=== PATIENT | female | born 1995 | race Caucasian/White ===

== ENCOUNTER 2020-03-05 16:37 | Outpatient (CLI) | payer BC, SELFPAY ==
--- NOTE | ~2020-03-05 | MR_ITS ---
EXAMINATION: MR lumbar spine wo con DATE: 03/05/2020 17:20 INDICATION: Lumbar radiculopathy. TECHNIQUE: Magnetic resonance imaging (MRI) of the lumbar spine was performed without intravenous con trast. Sequences included sagittal T2-weighted FSE, sagittal T2-weighted FS FSE, sagittal T1-weighted FSE, and axial T2-weighted FSE. COMPARISON: Lumbar spine MRI 05/26/2019 FINDINGS: There is 4 degrees dextrocurvature of thoracolumbar spine. Vertebral body heights are juan l. There is mildly decreased disc height at L5-S1. The distal spinal cord signal intensity is normal. The conus medullaris is at T12-L1. The following disc levels are specifically discussed: L1-L2: The disc does not extend beyond the endplate margin. There is no facet joint osteoarthritis. T here is no neural foraminal stenosis. There is no central canal stenosis. L2-L3: The disc does not extend beyond the endplate margin. There is no facet joint osteoarthritis. T here is no neural foraminal stenosis. There is no central canal stenosis. L3-L4: The disc does not extend beyond the endplate margin. There is moderate bilateral facet joint o steoarthritis. There is no neural foraminal stenosis. There is no central canal stenosis. L4-L5: The disc is mildly bulging. There is mild bilateral facet joint osteoarthritis. There is mild bilateral neural foraminal stenosis. There is no central canal stenosis. L5-S1: The disc is bulging and has an annular fissure. There is mild bilateral facet joint osteoarthr itis. There is no neural foraminal stenosis. There is mild central canal stenosis. IMPRESSION: 1. Mild lumbar spondylosis, stable from 05/26/2019. Reviewed, dictated and finalized at location E.
--- NOTE | ~2020-03-05 | XR_ITS ---
XR lumbar spine 2-3V 03/05/2020 17:30 Indication: Low back pain Procedure: 3 views lumbar spine Comparison: 04/30/2019 Findings: There is dextrocurvature of the lumbar spine centered at L3. Vertebral body and disc height s are preserved. No evidence for spondylolisthesis. Sacral foramen are symmetric. Impression: 1: Mild dextrocurvature of the lumbar spine. Reviewed, dictated and finalized at location A. Impression: 1: Mild dextrocurvature of the lumbar spine.
--- NOTE | ~2020-03-05 | XR_ITS ---
EXAMINATION: XR knee RT min 4V DATE: 03/05/2020 17:30 INDICATION: Right knee pain. TECHNIQUE: 4 views of right knee were obtained. COMPARISON: None. FINDINGS: Bone alignment is normal. No fracture. There is mild osteoarthritis of lateral and patellof emoral compartments characterized by tiny marginal osteophytes. No knee joint effusion. IMPRESSION: 1. Mild right knee osteoarthritis. Reviewed, dictated and finalized at location E.
== END 2020-03-05 16:38 | disposition home or self-care (01) ==
PROVIDERS: PCP Emergency Medicine; Visit Provider Nurse Practitioner Adult Health
DX: M54.16 Radiculopathy, lumbar region (principal); M25.561 Pain in right knee; M41.86 Other forms of scoliosis, lumbar region; M47.816 Spondylosis without myelopathy or radiculopathy, lumbar region; M17.11 Unilateral primary osteoarthritis, right knee
CPT/HCPCS: 72100; 72148; 73564

== ENCOUNTER 2020-03-21 09:36 | Outpatient (CLI) | payer BC, SELFPAY ==
--- NOTE | 2020-03-21 11:00 | NEURO_ITS ---
Patient Number: [id number] Impression: # Complains of right arm pain and paresthesia. # No Carpal Tunnel Syndrome or ulnar neuropathy. # Normal needle/EMG exam. # Clinical correlation recommended. Nerve Conduction Studies Anti Sensory Summary Table Stim Site NR Peak (ms) P-T Amp (?V) Site1 Site2 Delta-P (ms) Dist (cm) Robbie (m/s) Right Median Anti Sensory (2-3nd Digit) Wrist 2.3 84.8 Wrist 2-3nd Digit 2.3 14.0 61 Wrist 2.3 75.3 Wrist 2-3nd Digit 2.3 14.0 61 Right Radial Anti Sensory (Base 1st Digit) Wrist 1.8 39.5 Wrist Base 1st Digit 1.8 0.0 Right Ulnar Anti Sensory (5th Digit) Wrist 2.0 61.9 Wrist 5th Digit 2.0 14.0 70 Motor Summary Table Stim Site NR Onset (ms) O-P Amp (mV) Site1 Site2 Delta-0 (ms) Dist (cm) Robbie (m/s) Right Median Motor (Abd Poll Brev) Wrist 2.3 5.7 Elbow Wrist 4.6 27.0 59 Elbow 6.9 2.7 Right Ulnar Motor (Abd Dig Minimi) Wrist 2.0 6.6 A Elbow Wrist 4.4 29.0 66 A Elbow 6.4 5.6 F Wave Studies NR F-Lat (ms) L-R F-Lat (ms) Right Median (Mrkrs) (Abd Poll Brev) 25.65 Right Ulnar (Mrkrs) (Abd Dig Min) 24.91 EMG Side Muscle Nerve Root Ins Act Fibs Amp Dur Recrt Comment Right 1stDorInt Ulnar C8-T1 Nml Nml Nml Nml Nml Right Ext Indicis Radial (Post Int) C7-8 Nml Nml Nml Nml Nml Right Ext Digitorum Radial (Post Int) C7-8 Nml Nml Nml Nml Nml Right BrachioRad Radial C5-6 Nml Nml Nml Nml Nml Right PronatorTeres Median C6-7 Nml Nml Nml Nml Nml Right Abd Poll Brev Median C8-T1 Nml Nml Nml Nml Nml MTDD
== END 2020-03-21 09:37 | disposition home or self-care (01) ==
PROVIDERS: PCP Emergency Medicine; Visit Provider Emergency Medicine
DX: R20.2 Paresthesia of skin (principal)
CPT/HCPCS: 95886; 95909

== ENCOUNTER → 2020-05-01 14:47 | Outpatient (CLI) | payer BC, SELFPAY ==
--- NOTE | ~2020-05-01 | US_ITS ---
EXAMINATION: US pelvic complete w TV DATE: 05/01/2020 15:12 INDICATION: Acquired atrophy of the right ovary TECHNIQUE: Multiple transabdominal and endovaginal sonographic images of the pelvis were obtained. COMPARISON: None. FINDINGS: The uterus is surgically absent. The right ovary is not visualized however no right adnexal abnormality is seen. The left ovary measures 5.4 x 5 x 4.9 cm. There is a 4.5 x 4.5 x 4.1 cm left ad nexal cyst with a reticular pattern of internal echoes, likely hemorrhagic cyst. There is normal vasc ular flow in the left ovary. There is a small amount of likely physiologic free fluid in the pelvis. IMPRESSION: 1. Right ovary not identified. Reviewed, dictated and finalized at location A.
== END ==
PROVIDERS: PCP Emergency Medicine; Visit Provider Emergency Medicine
DX: N83.311 Acquired atrophy of right ovary (principal)
CPT/HCPCS: 76830; 76856

== ENCOUNTER → 2020-08-02 14:07 | Outpatient (CLI) | payer BC, SELFPAY ==
--- NOTE | ~2020-08-02 | US_ITS ---
EXAMINATION: US renal BI EXAM DATE: 08/02/2020 14:30 INDICATION: cyst of kidney TECHNIQUE: Multiple grayscale and Doppler images of the kidneys were obtained (by a technologist who performed the scan) and subsequently reviewed. There is no prior study for comparison. FINDINGS: Right kidney: There is normal contour and echogenicity. It measures 11.3 x 3.5 x 5.3 centimeters. T here are no focal renal lesions identified. There is no hydronephrosis. Left kidney: There is normal contour and echogenicity. It measures 10.9 x 4.1 x 6.0 centimeters. Th ere are no focal renal lesions identified. There is no hydronephrosis. Bladder unremarkable. IMPRESSION: 1. Sonographically unremarkable kidneys. Reviewed, dictated and finalized at location B. [employer] PROCESSING
== END ==
PROVIDERS: PCP Emergency Medicine; Visit Provider Emergency Medicine
DX: N28.1 Cyst of kidney, acquired (principal)
CPT/HCPCS: 76775

== ENCOUNTER → 2020-09-13 09:58 | Outpatient (CLI) | payer BC, SELFPAY ==
--- NOTE | ~2020-09-13 | MR_ITS ---
EXAMINATION: MR brain/brain stem wo/w con DATE: 09/13/2020 10:47 INDICATION: Headache. Neuropathy. Muscle weakness. TECHNIQUE: Magnetic resonance imaging (MRI) of the brain and brainstem was performed without and with 14 mL MultiHance intravenous contrast. Sequences included sagittal and axial T1-weighted FLAIR, axia l T1-weighted FSE, axial diffusion-weighted FS EPI, sagittal T2-weighted FLAIR, axial T2*-weighted GR E, axial T2-weighted FLAIR Propeller, and axial T2-weighted Propeller. Postcontrast sequences include d axial, coronal, and sagittal T1-weighted FSE. Apparent diffusion coefficient (ADC) maps were create d. COMPARISON: None. FINDINGS: There is no intracranial hemorrhage, acute infarction, or abnormal intracranial mass lesion . The ventricles are normal in size. The paranasal sinuses are clear. The orbits are normal. The mast oid air cells are normal. IMPRESSION: 1. Normal brain. Reviewed, dictated and finalized at location A. 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 Normal brain.
[2020-09-13 10:22] LABS: Estimated Glomerular Filt Rate > 60
== END ==
PROVIDERS: PCP Emergency Medicine; Visit Provider Emergency Medicine
DX: R51.9 Headache, unspecified (principal); G62.9 Polyneuropathy, unspecified
CPT/HCPCS: 70553; A9577

== ENCOUNTER → 2020-11-16 11:52 | Outpatient (CLI) | payer BC, SELFPAY ==
--- NOTE | ~2020-11-16 | US_ITS ---
EXAMINATION: US soft tissue UE RT EXAM DATE: 11/16/2020 12:11 INDICATION: Ganglion, right wrist. Right wrist palpable abnormality. TECHNIQUE: Multiple grayscale and Doppler images of the palpable right wrist region were obtained (by a technologist who performed the scan) and subsequently reviewed. There is no prior study for lisa marcano. FINDINGS: No ganglion, cystic lesion or other mass was identified when scanning right anterior mid wrist palpab le region. IMPRESSION: 1. Could not identify etiology for right wrist palpable abnormality. Reviewed, dictated and finalized at location A. 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
== END ==
PROVIDERS: PCP Emergency Medicine; Visit Provider Emergency Medicine
DX: M67.431 Ganglion, right wrist (principal)
CPT/HCPCS: 76882

== ENCOUNTER 2021-01-17 00:10 | Emergency (ER) | payer BC, SELFPAY ==
--- NOTE | ~2021-01-17 | XR_ITS ---
EXAMINATION: XR hip RT 2V w AP pelvis DATE: 01/17/2021 00:43 INDICATION: Right hip pain. TECHNIQUE: An anteroposterior view of the pelvis and 2 views of right hip were obtained. COMPARISON: None. FINDINGS: There is 6 degrees dextrocurvature of lumbar spine. No fracture. The hip joint spaces are n ormal. IMPRESSION: 1. Normal hips. Reviewed, dictated and finalized at location B. IMPRESSION: 1. Normal hips.
[2021-01-17 00:10] VITALS: BP 125/88; PULSE 88; RESP 18; TEMP 36.7; O2SAT 100
--- NOTE | 2021-01-17 00:30 | ED.LOWEXIN ---
HPI - Extremity Injury (Lower) General Chief Complaint: Extremity Injury, Lower Stated Complaint: hip injury Time Seen by Provider: 01/17/21 00:23 Source: patient Mode of arrival: ambulatory Limitations: no limitations History of Present Illness HPI Narrative: This is a 25 year old female who presents for evaluation of right hip pain. She states she was having sexual intercourse with her last night and she felt a pop in her right hip. She has continued to have soreness to her right lateral hip. She reports intermittent tingling to her right hip. She states tonight she felt pain to right hip that radiated to right knee. She taken tylenol for her pain. She denies numbness or weakness to her leg. complaint: hip injury Related Data Home Medications Medication Instructions Recorded Confirmed amitriptyline 25 mg PO QAM AND QHS 08/24/19 09/02/19 gabapentin 300 mg PO QAM AND QHS 08/24/19 09/02/19 ibuprofen 800 mg PO TID PRN 08/24/19 09/02/19 montelukast 10 mg PO HS 08/24/19 09/02/19 Allergies Allergy/AdvReac Type Severity Reaction Status Date / Time adhesive tape Allergy Severe BLISTERS Verified 08/23/19 21:37 ammonia Allergy Severe Dyspnea / Verified 08/23/19 23:00 SOB latex Allergy Severe RASH Verified 08/23/19 21:37 mold Allergy Severe Dyspnea / Verified 08/23/19 23:04 SOB metronidazole Allergy Intermediate RASH Verified 08/23/19 21:37 coconut Allergy Unknown Unknown Verified 08/23/19 23:04 mushroom Allergy Unknown Unknown Verified 08/23/19 23:04 Sulfa (Sulfonamide Allergy Unknown Unknown Verified 08/23/19 21:37 Antibiotics) Review of Systems Review of Systems: All systems reviewed & are unremarkable except as noted in HPI and below PMFSH Past Medical History Medical History (Updated 01/17/21 @ 01:44 by Amalia Pineda MD) Asthma Fibromyalgia PID (pelvic inflammatory disease) Thrombus Surgical History Surgical History (Updated 09/02/19 @ 21:02 by Meghana Brasher NP) History of dilation and curettage History of endometrial ablation History of hysterectomy Hx of section X2 Family History Family History Father Acute myocardial infarction Mother Heart disease Social History Social History (Updated 09/02/19 @ 21:05 by Meghana Brasher NP) Social History: She is a [id number] mother of 3 children. 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tion (if Verbalized by the Patient): Straight or Heterosexual Spiritual care concerns: No Agree to blood products: Yes Exam Const: General: no acute distress and alert Orientation/consciousness: patient oriented x3 Resp: Effort & Inspection: normal respiratory effort and no retractions Auscultation: clear to auscultation bilaterally Cardio: Rate: regular rate Rhythm: regular rhythm Heart sounds: no murmurs GI: GI Palp: Yes Soft to palpation, No Tenderness to palpation present (GI) and No Guarding due to palpation present (GI) Neuro: General: patient oriented x3 and moves all extremities Extrem: Other: FROM right hip, no erythema, no swelling, Psych: Mental Status: mental status grossly normal Affect: normal affect Course Reevaluation(s) Reevaluation #1: PAtient is able to ambulate and bear weight. I reviewed xray showing no acute findings. I discussed discharge plan and treatment. Date: 01/17/21 Time: 01:41 Vital Signs Vital signs: Vital Signs Temperature 98.0 F 01/17/21 00:10 Pulse Rate 88 01/17/21 00:10 Respiratory Rate 18 01/17/21 00:10 Blood Pressure 125/88 01/17/21 00:10 Pulse Oximetry 100 01/17/21 00:10 Temperature 98.0 F 01/17/21 00:10 Pulse Rate 87 01/17/21 01:55 Respiratory Rate 18 01/17/21 01:
[2021-01-17] MEDS: KETOROLAC (*BKC) 60 MG/2 ML VIAL IM (00:44)
[2021-01-17 01:55] VITALS: BP 113/79; PULSE 87; RESP 18; O2SAT 97
== END 2021-01-17 01:56 | disposition home or self-care (01) ==
PROVIDERS: Emergency Provider General Practice; PCP Emergency Medicine
DX: M25.551 Pain in right hip (principal); J45.909 Unspecified asthma, uncomplicated; M79.7 Fibromyalgia
CPT/HCPCS: 73502; 96372; 99283; J1885

== ENCOUNTER 2021-02-13 21:08 | Emergency (ER) | payer BC, SELFPAY ==
[2021-02-13 21:24] VITALS: BP 112/95; PULSE 101; RESP 18; TEMP 36.6; O2SAT 95
--- NOTE | 2021-02-13 22:50 | ED.GENADULT ---
HPI - General Adult General Chief complaint: Unspecified Stated complaint: allergic rxn, vag c/o Time Seen by Provider: 02/13/21 22:12 Source: patient Mode of arrival: ambulatory Limitations: no limitations History of Present Illness HPI narrative: Patient is a 25 year old female who presents with vaginal irritation after use of Monistat this pm. Patient reports recent yeast infection and Diflucan x 2, reports that she was using Monistat just to be sure . She denies exposure to STD, denies urinary complaints. MD complaint: vaginal irritation Related Data Home Medications Medication Instructions Recorded Confirmed amitriptyline 25 mg PO QAM AND QHS 08/24/19 09/02/19 gabapentin 300 mg PO QAM AND QHS 08/24/19 09/02/19 ibuprofen 800 mg PO TID PRN 08/24/19 09/02/19 montelukast 10 mg PO HS 08/24/19 09/02/19 Allergies Allergy/AdvReac Type Severity Reaction Status Date / Time adhesive tape Allergy Severe BLISTERS Verified 08/23/19 21:37 ammonia Allergy Severe Dyspnea / Verified 08/23/19 23:00 SOB latex Allergy Severe RASH Verified 08/23/19 21:37 mold Allergy Severe Dyspnea / Verified 08/23/19 23:04 SOB metronidazole Allergy Intermediate RASH Verified 08/23/19 21:37 coconut Allergy Unknown Unknown Verified 08/23/19 23:04 mushroom Allergy Unknown Unknown Verified 08/23/19 23:04 Sulfa (Sulfonamide Allergy Unknown Unknown Verified 08/23/19 21:37 Antibiotics) Review of Systems Review of Systems: Narrative: CONSTITUTIONAL: Denies fever, chills, or sweats. EYES: Denies visual changes, redness, or discharge. ENT: Denies rhinorrhea, congestion, sore throat, or otalgia. CARDIOVASCULAR: Denies chest pain, palpitations, or edema. RESPIRATORY: Denies cough or dyspnea. GASTROINTESTINAL: Denies abdominal pain, nausea, vomiting, or diarrhea. GENITOURINARY:Vaginal irritation SKIN: Denies rash or itching. MUSCULOSKELETAL: Denies back pain, joint pain, or myalgia. NEUROLOGIC: Denies headache, numbness, dizziness, or weakness. PSYCHIATRIC: Denies anxiety or depression. [facility] Past Medical History Medical History Asthma Fibromyalgia PID (pelvic inflammatory disease) Thrombus Surgical History Surgical History History of dilation and curettage History of endometrial ablation History of hysterectomy Hx of section X2 Family History Family History Father Acute myocardial infarction Mother Heart disease Social History Social History Social History: She is a [id number] mother of 3 children. 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 Please see nursing chart for further information. There is no relevant family history pertinent to the presenting complaint. Exam Narrative: Exam Narrative: GENERAL: Well-appearing, well-nourished, and in no acute distress. HEAD: Normocephalic, atraumatic. EYES: EOMI. No redness or drainage. Conjunctiva are normal. ENT: Mucous membranes pink and moist. CHEST: No respiratory distress. Clear to auscultation. : Erythema and mild edema to labial area HEART: Regular rate and rhythm. EXTREMITIES: Normal range of motion. No edema. SKIN: Warm, dry, no rash. NEURO: No focal deficits. Alert and oriented x3. Gait steady. PSYCH: Normal affect. No signs of depression or anxiety. Course Vital Signs Vital signs: Vital Signs Temperature 36.6 C 02/13/21 21:24 Pu
[2021-02-13 23:14] VITALS: BP 131/87; PULSE 92; RESP 16; TEMP 36.4; O2SAT 100
== END 2021-02-13 23:15 | disposition home or self-care (01) ==
PROVIDERS: Emergency Provider Nurse Practitioner; PCP Emergency Medicine
DX: L25.9 Unspecified contact dermatitis, unspecified cause (principal); J45.909 Unspecified asthma, uncomplicated; M79.7 Fibromyalgia
CPT/HCPCS: 99283

== ENCOUNTER 2021-02-19 08:32 | Outpatient (CLI) | payer BC, SELFPAY ==
--- NOTE | ~2021-02-19 | CT_ITS ---
EXAMINATION: CT soft tissue neck w con DATE: 02/19/2021 09:09 INDICATION: Cervical lymphadenopathy. TECHNIQUE: Computed tomography (CT) of the neck was performed with 75 mL Omnipaque-350 intravenous co ntrast. Automated exposure control and iterative reconstruction technique were employed. The dose-jann gth product was 458.01 mGy-cm. COMPARISON: None FINDINGS: There are no pathologically enlarged lymph nodes. There is no abnormal mass. The cervical c arotid arteries are normal. The bones are unremarkable. IMPRESSION: 1. No lymphadenopathy. Reviewed, dictated and finalized at location B. IMPRESSION: 1. No lymphadenopathy.
== END 2021-02-19 08:33 | disposition home or self-care (01) ==
PROVIDERS: PCP Emergency Medicine; Visit Provider Otolaryngology
DX: R59.0 Localized enlarged lymph nodes (principal)
CPT/HCPCS: 70491; Q9967

== ENCOUNTER 2021-04-28 19:04 | Emergency (ER) | payer BC, SELFPAY ==
[2021-04-28 19:11] VITALS: BP 126/75; PULSE 99; RESP 18; TEMP 36.8; O2SAT 99
--- NOTE | 2021-04-28 19:12 | ED.BACK ---
HPI - Back Pain/Injury General Chief Complaint: Back Pain/Injury Stated Complaint: Lower back pain Time Seen by Provider: 04/28/21 19:12 Source: patient and RN notes reviewed Mode of arrival: ambulatory Limitations: no limitations History of Present Illness HPI Narrative: 26-year-old female presents concern for left low back pain that started this morning. Reports it started after she bent over to put in the oven. She denies any direct injury or trauma. Reports pain is elicited with bending, twisting. She denies fever, abdominal pain, nausea, vomiting, hematuria, dysuria, urine frequency, urgency. She reports she had plantar fasciitis surgery approximately 1 week ago and has been wearing a boot which causes an abnormal gait. She denies intervention. MD elicited complaint: back pain Related Data Home Medications Medication Instructions Recorded Confirmed montelukast 10 mg PO HS 08/24/19 09/02/19 bupropion HCl mg PO 04/28/21 diltiazem HCl PO 04/28/21 omeprazole 04/28/21 Allergies Allergy/AdvReac Type Severity Reaction Status Date / Time adhesive tape Allergy Severe BLISTERS Verified 08/23/19 21:37 ammonia Allergy Severe Dyspnea / Verified 08/23/19 23:00 SOB latex Allergy Severe RASH Verified 08/23/19 21:37 mold Allergy Severe Dyspnea / Verified 08/23/19 23:04 SOB metronidazole Allergy Intermediate RASH Verified 08/23/19 21:37 coconut Allergy Unknown Unknown Verified 08/23/19 23:04 mushroom Allergy Unknown Unknown Verified 08/23/19 23:04 Sulfa (Sulfonamide Allergy Unknown Unknown Verified 08/23/19 21:37 Antibiotics) Review of Systems Review of Systems: CONSTITUTIONAL: Denies malaise, chills, sweats, or fever. CARDIOVASCULAR: Denies chest pain, palpitations, or edema. RESPIRATORY: Denies cough or dyspnea. GASTROINTESTINAL: Denies abdominal pain, nausea, vomiting, diarrhea GENITOURINARY: Denies dysuria frequency, urgency, or hematuria. SKIN: Denies bruising, redness MUSCULOSKELETAL: Reports left low pain. Denies myalgia. NEUROLOGIC: Denies numbness, weakness, or headache. All systems reviewed & are unremarkable except as noted in HPI and below PMFSH Past Medical History Medical History Asthma Fibromyalgia PID (pelvic inflammatory disease) Thrombus Surgical History Surgical History History of dilation and curettage History of endometrial ablation History of hysterectomy Hx of section X2 Family History Family History Father Acute myocardial infarction Mother Heart disease Social History Social History Social History: She is a [id number] mother of 3 children. 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 There is no relevant family history pertinent to the presenting complaint Exam Narrative: GENERAL: Well-appearing, well-nourished, and in no acute distress. HEAD: Normocephalic, atraumatic. EYES: PERRLA and EOMI. NECK: Supple. No lymphadenopathy. CHEST: Clear to auscultation. No respiratory distress. HEART: Regular rate and rhythm. Distal pulses palpable and equal, cap refill <3 seconds ABDOMEN: Soft, nontender, nondistended, normal active bowel sounds, no palpable or pulsatile masses. No CVA tenderness MUSCULOSKELETAL: Normal range of motion and strength in all extremities; 5/5 strength with hip flexion and extension, dorsiflexion and extension, knee flexion and extension, plantar flexion and extension. Norm
== END 2021-04-28 19:57 | disposition home or self-care (01) ==
PROVIDERS: Emergency Provider Nurse Practitioner; PCP Emergency Medicine
DX: M54.5 Low back pain (principal); J45.909 Unspecified asthma, uncomplicated; M79.7 Fibromyalgia; N73.9 Female pelvic inflammatory disease, unspecified
CPT/HCPCS: 99212; G0463

== ENCOUNTER 2021-06-20 18:06 | Emergency (ER) | payer BC, SELFPAY ==
[2021-06-20 18:14] VITALS: BP 111/75; PULSE 93; RESP 18; TEMP 36.6; O2SAT 100
--- NOTE | 2021-06-20 18:54 | ED.GENADULT ---
HPI - General Adult General Chief complaint: Upper Respiratory Infection Stated complaint: sore throat/sob Source: patient Mode of arrival: ambulatory Limitations: no limitations History of Present Illness HPI narrative: 26 y/o female. PMHx MDD, Asthma, GERD, SSS. Presents to ED today with acute complaints of sore throat and intermittent asthma issues . Client tells me that for the past 48 hours she has been having worsening sore throat. She adds to have been around her Brother whom just tested positive for Streptococcal Throat. In addition, she had went to the local hair salon and had her hair dyed this AM. Client tells me after being exposed to the chemicals at the salon, she felt like she was having a small amount of wheezing that has since cleared. No fever, chills. No dyspnea, dysphagia, involuntary drooling. She is without additional acute c/o illness upon exam. Related Data Home Medications Medication Instructions Recorded Confirmed montelukast 10 mg PO HS 08/24/19 06/20/21 bupropion HCl 150 mg PO DAILY 04/28/21 06/20/21 diltiazem HCl 120 mg PO DAILY 04/28/21 06/20/21 omeprazole 40 mg PO DAILY 04/28/21 06/20/21 meloxicam 7.5 mg PO DAILY 06/20/21 06/20/21 tretinoin 1 applic TOPICAL DAILY 06/20/21 06/20/21 Allergies Allergy/AdvReac Type Severity Reaction Status Date / Time adhesive tape Allergy Severe BLISTERS Verified 06/20/21 18:29 ammonia Allergy Severe Dyspnea / Verified 06/20/21 18:29 SOB latex Allergy Severe RASH Verified 06/20/21 18:29 mold Allergy Severe Dyspnea / Verified 06/20/21 18:29 SOB metronidazole Allergy Intermediate RASH Verified 06/20/21 18:29 coconut Allergy Unknown Unknown Verified 06/20/21 18:29 mushroom Allergy Unknown Unknown Verified 06/20/21 18:29 Sulfa (Sulfonamide Allergy Unknown Unknown Verified 06/20/21 18:29 Antibiotics) Review of Systems Review of Systems: CONSTITUTIONAL: Denies fever, chills, sweats. EYES: Denies visual changes, redness, discharge. ENT: sore throat. CARDIOVASCULAR: Denies chest pain, palpitations, edema. RESPIRATORY: Wheezing. Denies dyspnea, cough. GASTROINTESTINAL: Denies abdominal pain, nausea, vomiting, diarrhea. GENITOURINARY: Denies dysuria, hematuria, abnormal discharge SKIN: Denies rash or itching. MUSCULOSKELETAL: Denies acute back pain, joint pain, or myalgia. NEUROLOGIC: Denies numbness, or focal weakness. PSYCHIATRIC: Denies anxiety or depression. All systems reviewed & are unremarkable except as noted in HPI and below PMFSH Past Medical History Medical History Asthma Fibromyalgia PID (pelvic inflammatory disease) Thrombus Surgical History Surgical History History of dilation and curettage History of endometrial ablation History of hysterectomy Hx of section X2 Family History Family History Father Acute myocardial infarction Mother Heart disease Social History Social History Social History: She is a [id number] mother of 3 children. 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 HEAD: normocephalic, atraumatic. EYES: PERRL. Sclera clear/white. EARS: External ears normal, auditory canals clear and without drainage, TMs normal. NOSE: External nose normal. No Rhinorrhea, no obstruction, nares patent. THROAT: Mucous membranes moist, posterior pharynx e
== END 2021-06-20 19:03 | disposition home or self-care (01) ==
PROVIDERS: Emergency Provider Nurse Practitioner Adult Health; PCP Emergency Medicine
DX: J45.21 Mild intermittent asthma with (acute) exacerbation (principal); J02.9 Acute pharyngitis, unspecified; M79.7 Fibromyalgia
CPT/HCPCS: 87081; 87880; 99213; G0463

== ENCOUNTER 2021-06-22 09:24 | Emergency (ER) | payer BC, SELFPAY ==
[2021-06-22 09:27] VITALS: BP 119/71; PULSE 97; RESP 16; TEMP 36.3; O2SAT 98
--- NOTE | 2021-06-22 10:40 | ED.GENADULT ---
HPI - General Adult General Chief complaint: Wound/Laceration Stated complaint: wound Time Seen by Provider: 06/22/21 10:12 History of Present Illness HPI narrative: Patient presents for evaluation of painful lesion to the labia. She indicates she gets ingrown hairs frequently after shaving. Approximately 3 weeks ago she was grooming her pubic hair. She developed some swelling in affected area shortly thereafter. She attributed this to an ingrown hair. Yesterday she noticed increased swelling and then she has a cyst in the affected area. No fever, chills, nausea, vomiting. No vaginal bleeding or discharge. No additional complaints or concerns. She states she is currently on amoxicillin that was started a few days ago when she was evaluated at urgent care for sore throat. She states her sore throat is improving. Related Data Home Medications Medication Instructions Recorded Confirmed montelukast 10 mg PO HS 08/24/19 06/20/21 bupropion HCl 150 mg PO DAILY 04/28/21 06/20/21 diltiazem HCl 120 mg PO DAILY 04/28/21 06/20/21 omeprazole 40 mg PO DAILY 04/28/21 06/20/21 meloxicam 7.5 mg PO DAILY 06/20/21 06/20/21 tretinoin 1 applic TOPICAL DAILY 06/20/21 06/20/21 Allergies Allergy/AdvReac Type Severity Reaction Status Date / Time adhesive tape Allergy Severe BLISTERS Verified 06/22/21 09:36 ammonia Allergy Severe Dyspnea / Verified 06/22/21 09:36 SOB latex Allergy Severe RASH Verified 06/22/21 09:36 mold Allergy Severe Dyspnea / Verified 06/22/21 09:36 SOB metronidazole Allergy Intermediate RASH Verified 06/22/21 09:36 coconut Allergy Unknown Unknown Verified 06/22/21 09:36 mushroom Allergy Unknown Unknown Verified 06/22/21 09:36 Sulfa (Sulfonamide Allergy Unknown Unknown Verified 06/22/21 09:36 Antibiotics) Review of Systems Review of Systems: CONSTITUTIONAL: Denies fever, chills, or sweats. EYES: Denies visual changes, redness, or discharge. ENT: Denies rhinorrhea, congestion, sore throat, or otalgia. CARDIOVASCULAR: Denies chest pain, palpitations, or edema. RESPIRATORY: Denies cough or dyspnea. GASTROINTESTINAL: Denies abdominal pain, nausea, vomiting, or diarrhea. GENITOURINARY: Denies dysuria or hematuria. SKIN: Reports painful swollen lesion to labia. Denies rash or itching. MUSCULOSKELETAL: Denies back pain, joint pain, or myalgia. NEUROLOGIC: Denies headache, numbness, dizziness, or weakness. PSYCHIATRIC: Denies anxiety or depression. [facility] Past Medical History Medical History Asthma Fibromyalgia PID (pelvic inflammatory disease) Tachycardia Thrombus Surgical History Surgical History History of dilation and curettage History of endometrial ablation History of hysterectomy Hx of section X2 Family History Family History Father Acute myocardial infarction Mother Heart disease Social History Social History Social History: She is a [id number] mother of 3 children. 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 HEAD: Normocephalic, atraumatic. EYES: PERRLA and EOMI. ENT: Nares clear, no rhinorrhea or epistaxis. Mucous membranes moist. Oropharynx without tonsillar hypertrophy exudate or other lesions. Bilateral TMs pearly persaud nonbulging NECK: Supple. No adenopathy or masses. No carotid bruits or JVD CHEST: Clear to auscultation.
[2021-06-22 11:50] VITALS: BP 125/86; PULSE 78; RESP 18; O2SAT 99
== END 2021-06-22 11:51 | disposition home or self-care (01) ==
PROVIDERS: Emergency Provider Nurse Practitioner; PCP Emergency Medicine
DX: J45.909 Unspecified asthma, uncomplicated (principal); M79.7 Fibromyalgia; L73.9 Follicular disorder, unspecified; J02.9 Acute pharyngitis, unspecified
CPT/HCPCS: 99283

== ENCOUNTER → 2021-11-05 10:49 | Outpatient (CLI) | payer BC, SELFPAY ==
--- NOTE | ~2021-11-05 | US_ITS ---
EXAMINATION: US pelvic complete w TV EXAM DATE: 11/05/2021 11:18 INDICATION: Pelvic pain . TECHNIQUE: Pelvic transvaginal sonogram was performed. There are multiple grayscale and Doppler imag es available for interpretation. There is no prior study for comparison. FINDINGS: Hysterectomy. The vaginal cuff, cervix sonographically unremarkable. Right adnexa: No adnexal mass. Left adnexa: The ovary measures 2.9 x 1.8 x 2.6 cm and is morphologically normal. Ovarian vascular fl ow confirmed. IMPRESSION: Unremarkable left ovary. Reviewed, dictated and finalized at location B. T SUPERVISOR IMPRESSION: Unremarkable left ovary.
== END ==
PROVIDERS: PCP Emergency Medicine; Visit Provider Emergency Medicine
DX: R10.2 Pelvic and perineal pain (principal)
CPT/HCPCS: 76830; 76856

== ENCOUNTER → 2021-12-12 09:51 | Outpatient (CLI) | payer BC, SELFPAY ==
--- NOTE | ~2021-12-12 | MR_ITS ---
EXAMINATION: MR lumbar spine wo con DATE: 12/12/2021 10:31 INDICATION: Lumbar radiculopathy. TECHNIQUE: Magnetic resonance imaging (MRI) of the lumbar spine was performed without intravenous con trast. Sequences included sagittal T2-weighted FSE, sagittal T2-weighted FS FSE, sagittal T1-weighted FSE, and axial T2-weighted FSE. COMPARISON: Lumbar spine MRI 03/05/2020 FINDINGS: Bone alignment is normal. Vertebral body heights are normal. There is mildly decreased disc height at L5-S1. The distal spinal cord signal intensity is normal. The conus medullaris is at T12-L 1. The following disc levels are specifically discussed: L1-L2: The disc does not extend beyond the endplate margin. There is no facet joint osteoarthritis. T here is no neural foraminal stenosis. There is no central canal stenosis. L2-L3: The disc does not extend beyond the endplate margin. There is mild bilateral facet joint osteo arthritis. There is no neural foraminal stenosis. There is no central canal stenosis. L3-L4: The disc does not extend beyond the endplate margin. There is mild bilateral facet joint osteo arthritis. There is no neural foraminal stenosis. There is no central canal stenosis. L4-L5: The disc is bulging. There is mild bilateral facet joint osteoarthritis. There is mild left ne ural foraminal stenosis. There is mild central canal stenosis. L5-S1: The disc is bulging and has an annular fissure. There is mild right facet joint osteoarthritis . There is no neural foraminal stenosis. There is mild central canal stenosis. IMPRESSION: 1. Mild lumbar spondylosis, stable from 03/05/2020. Reviewed, dictated and finalized at location A.
== END ==
PROVIDERS: PCP Emergency Medicine; Visit Provider Nurse Practitioner Adult Health
DX: M47.27 Other spondylosis with radiculopathy, lumbosacral region (principal); M48.07 Spinal stenosis, lumbosacral region
CPT/HCPCS: 72148

== ENCOUNTER 2021-12-19 11:20 | Emergency (ER) | payer BC, SELFPAY ==
[2021-12-19 11:31] VITALS: BP 113/74; PULSE 84; RESP 18; TEMP 36.4; O2SAT 99
--- NOTE | 2021-12-19 11:56 | ED.FEMALEGU ---
HPI - Female Genitourinary General Chief complaint: Urogenital-Female Stated complaint: nausea and uti symptoms Time Seen by Provider: 12/19/21 11:56 Source: patient Mode of arrival: ambulatory Limitations: no limitations History of Present Illness HPI Narrative: Soledad Massey is a 26 yo female with a PMH of depression anxiety, tachycardia, asthma, who [facility] with complaints of dysuria and burning and some itching in her vaginal area without discharge. She has no concern for STDs or other sources of infection Related Data Home Medications Medication Instructions Recorded Confirmed bupropion HCl 150 mg PO DAILY 12/19/21 12/19/21 diltiazem HCl 120 mg PO DAILY 12/19/21 12/19/21 montelukast [Singulair] 10 mg PO HS 12/19/21 12/19/21 Allergies Allergy/AdvReac Type Severity Reaction Status Date / Time adhesive tape Allergy Severe BLISTERS Verified 11/25/21 08:22 ammonia Allergy Severe Anaphylaxis Verified 11/25/21 08:22 latex Allergy Severe RASH, Verified 12/19/21 11:48 swelling mold Allergy Severe Dyspnea / Verified 11/25/21 08:22 SOB tioconazole Allergy Severe vaginal Verified 12/19/21 11:48 [From Monistat 1 swelling (tioconazole)] metronidazole Allergy Intermediate RASH, hives Verified 12/19/21 11:48 coconut Allergy Unknown Hives, Verified 12/19/21 11:48 abdominal cramps kiwi Allergy Unknown itching Verified 11/25/21 08:22 mushroom Allergy Unknown Swelling Verified 12/19/21 11:48 Sulfa (Sulfonamide Allergy Unknown Unknown Verified 12/19/21 11:48 Antibiotics) tumeric Allergy Severe Swelling, Uncoded 08/14/21 14:01 rash mildew AdvReac Unknown trouble Uncoded 08/14/21 14:01 breathing Review of Systems Review of Systems: CONSTITUTIONAL: Denies fever, chills, sweats. EYES: Denies visual changes, redness, discharge. ENT: Denies rhinorrhea, congestion, sore throat, otalgia. CARDIOVASCULAR: Denies chest pain, palpitations, edema. RESPIRATORY: Denies dyspnea, wheezing, cough GASTROINTESTINAL: Denies abdominal pain, nausea, vomiting, diarrhea. GENITOURINARY: Has dysuria, itching in vaginal area with no discharge hematuria, abnormal discharge SKIN: Denies rash or itching. NEUROLOGIC: Denies numbness, or focal weakness. PSYCHIATRIC: Denies anxiety or depression. [facility] Past Medical History Medical History Acute vaginitis Anxiety and depression Arthritis Asthma Fibromyalgia IBS (irritable bowel syndrome) PID (pelvic inflammatory disease) Sacroiliitis Scoliosis Spinal stenosis Tachycardia Thrombus Vaginal delivery x1 Surgical History Surgical History History of ankle surgery 2020 History of back surgery 2019, Ablation History of bilateral salpingectomy 2018 History of dilation and curettage History of endometrial ablation History of hysterectomy 08/18/2019 History of laparoscopy x2, exploratory surgery looking for endometriosis Hx of section X2 [place] teeth extracted Family History Family History Father Acute myocardial infarction Heart problem Mother Heart disease Alcoholism Grandparent Cancer either cervical or uterine Social History Social History 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 There is no relevant family history pertinent to the presenting complaint. Exam Horace
== END 2021-12-19 12:12 | disposition home or self-care (01) ==
PROVIDERS: Emergency Provider Nurse Practitioner
DX: R30.0 Dysuria (principal); M19.90 Unspecified osteoarthritis, unspecified site; J45.909 Unspecified asthma, uncomplicated; M79.7 Fibromyalgia; M41.9 Scoliosis, unspecified; M48.00 Spinal stenosis, site unspecified; F41.9 Anxiety disorder, unspecified; F32.A Depression, unspecified
CPT/HCPCS: 81003; 87086; 99213; G0463

== ENCOUNTER 2022-07-09 19:37 | Emergency (ER) | payer BC, SELFPAY ==
--- NOTE | ~2022-07-09 | XR_ITS ---
EXAM: XR lumbar spine min 4V DATE: 07/09/2022 20:47 HISTORY: back injury X TONIGHT, LT POSTERIOR PAIN WORSE . COMPARISON: 03/05/2020. FINDINGS: Mild lumbar scoliosis. 5 nonrib-bearing lumbar-type vertebral bodies. Pedicles intact. Norm al vertebral body alignment. Vertebral body heights preserved. Minimal multilevel marginal osteophyto sis. Mild disc space narrowing at L5-S1. Stable grade 1 retrolisthesis at L5-S1. Normal facets and po sterior elements. No fracture or dislocation. IMPRESSION: No acute fracture or traumatic malalignment detected in the lumbar spine. Reviewed, dictated and finalized at location K.
[2022-07-09 20:06] VITALS: BP 116/75; PULSE 95; RESP 14; TEMP 36.3; O2SAT 100
--- NOTE | 2022-07-09 21:50 | ED.BACK ---
HPI - Back Pain/Injury General Chief Complaint: Back Pain/Injury Stated Complaint: back pain Time Seen by Provider: 07/09/22 20:22 History of Present Illness HPI Narrative: 27-year-old female presents emergency room for evaluation of lower back pain. Patient states that she has a history of bulging disks. Patient states that she bent over to sampler pickup a 5 pound box when she felt something tear in my back . Patient states the pain is worse when attempting to ambulate or sit down. Patient took naproxen prior to arrival and states he is not experienced any pain relief. Patient also reports she has not some numbness and tingling down the backside of her left leg. Denies saddle anesthesia. Denies any changes to her bowel or bladder habits. Related Data Home Medications Medication Instructions Recorded Confirmed bupropion HCl 150 mg 24 hr tablet, 150 mg PO DAILY 12/19/21 12/19/21 extended release diltiazem HCl 120 mg 120 mg PO DAILY 12/19/21 12/19/21 capsule,extended release 24 hr montelukast 10 mg tablet 10 mg PO HS 12/19/21 12/19/21 (Singulair) Allergies Allergy/AdvReac Type Severity Reaction Status Date / Time adhesive tape Allergy Severe BLISTERS Verified 11/25/21 08:22 ammonia Allergy Severe Anaphylaxis Verified 11/25/21 08:22 latex Allergy Severe RASH, Verified 12/19/21 11:48 swelling mold Allergy Severe Dyspnea / Verified 11/25/21 08:22 SOB tioconazole Allergy Severe vaginal Verified 12/19/21 11:48 [From Monistat 1 swelling (tioconazole)] metronidazole Allergy Intermediate RASH, hives Verified 12/19/21 11:48 coconut Allergy Unknown Hives, Verified 12/19/21 11:48 abdominal cramps kiwi Allergy Unknown itching Verified 11/25/21 08:22 mushroom Allergy Unknown Swelling Verified 12/19/21 11:48 Sulfa (Sulfonamide Allergy Unknown Unknown Verified 12/19/21 11:48 Antibiotics) tumeric Allergy Severe Swelling, Uncoded 08/14/21 14:01 rash mildew AdvReac Unknown trouble Uncoded 08/14/21 14:01 breathing Review of Systems Review of Systems: CONSTITUTIONAL: Denies fever, chills, or sweats. EYES: Denies visual changes, redness, or discharge. ENT: Denies rhinorrhea, congestion, sore throat, or otalgia. CARDIOVASCULAR: Denies chest pain, palpitations, or edema. RESPIRATORY: Denies cough or dyspnea. GASTROINTESTINAL: Denies abdominal pain, nausea, vomiting, or diarrhea. GENITOURINARY: Denies dysuria or hematuria. SKIN: Denies rash or itching. MUSCULOSKELETAL: Denies back pain, joint pain, or myalgia. reports low back pain NEUROLOGIC: Denies headache, numbness, dizziness, or weakness. PSYCHIATRIC: Denies anxiety or depression. [facility] Past Medical History Medical History Acute vaginitis Anxiety and depression Arthritis Asthma Fibromyalgia IBS (irritable bowel syndrome) PID (pelvic inflammatory disease) Sacroiliitis Scoliosis Spinal stenosis Tachycardia Thrombus Vaginal delivery x1 Surgical History Surgical History History of ankle surgery 2020 History of back surgery 2019, Ablation History of bilateral salpingectomy 2018 History of dilation and curettage History of endometrial ablation History of hysterectomy 08/18/2019 History of laparoscopy x2, exploratory surgery looking for endometriosis Hx of section X2 [place] teeth extracted Family History Family History Father Acute myocardial infarction Heart problem Mother Heart disease Alcoholism Grandparent Cancer either cervical or uterine Social History Social History 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
[2022-07-09] MEDS: methocarbamoL 500 MG TABLET PO (22:17)
[2022-07-09 22:21] VITALS: BP 100/66; PULSE 74; RESP 12; O2SAT 98
== END 2022-07-09 22:22 | disposition home or self-care (01) ==
PROVIDERS: Emergency Provider Nurse Practitioner Family; PCP Emergency Medicine
DX: S39.012A Strain of muscle, fascia and tendon of lower back, initial encounter (principal); J45.909 Unspecified asthma, uncomplicated; K58.9 Irritable bowel syndrome, unspecified; M79.7 Fibromyalgia; M19.90 Unspecified osteoarthritis, unspecified site; F32.A Depression, unspecified; F41.9 Anxiety disorder, unspecified; Z90.710 Acquired absence of both cervix and uterus; Z90.79 Acquired absence of other genital organ(s); X50.0XXA Overexertion from strenuous movement or load, initial encounter
CPT/HCPCS: 72110; 99283; A9270

== ENCOUNTER 2023-02-27 14:03 | Outpatient (CLI) | payer BC, SELFPAY ==
--- NOTE | ~2023-02-27 | CT_ITS ---
EXAMINATION: CT lumbar spine w con DATE: 02/27/2023 14:34 INDICATION: Lumbar radiculopathy. TECHNIQUE: Computed tomography (CT) of the lumbar spine was performed with 100 mL Omnipaque 350 intra venous contrast. Automated exposure control and iterative reconstruction technique were employed. The dose-length product was 589.77 mGy-cm. COMPARISON: Lumbar spine MRI 12/12/2021 FINDINGS: Bone alignment is normal. Vertebral body heights and intervertebral disc heights are normal . The following disc levels are specifically discussed: L1-L2: The disc does not extend beyond the endplate margin. There is mild bilateral facet joint osteo arthritis. There is no neural foraminal stenosis. There is no central canal stenosis. L2-L3: The disc does not extend beyond the endplate margin. There is mild bilateral facet joint osteo arthritis. There is no neural foraminal stenosis. There is no central canal stenosis. L3-L4: The disc does not extend beyond the endplate margin. There is moderate right and mild left fac et joint osteoarthritis. There is no neural foraminal stenosis. There is no central canal stenosis. L4-L5: The disc is bulging. There is mild bilateral facet joint osteoarthritis. There is mild bilater al neural foraminal stenosis. There is mild central canal stenosis. L5-S1: The disc is bulging. There is mild bilateral facet joint osteoarthritis. There is no neural fo raminal stenosis. There is mild central canal stenosis. IMPRESSION: 1. Mild lumbar spondylosis. Reviewed, dictated and finalized at location A. IMPRESSION: 1. Mild lumbar spondylosis.
--- NOTE | ~2023-02-27 | CT_ITS ---
EXAMINATION: CT pelvis w con DATE: 02/27/2023 14:34 INDICATION: Sacral lesions. Low back pain. TECHNIQUE: Computed tomography (CT) of the pelvis was performed with 100 mL Omnipaque 350 intravenous contrast. Automated exposure control and iterative reconstruction technique were employed. The dose- length product was 392.83 mGy-cm. COMPARISON: CT abdomen and pelvis 09/02/2019 FINDINGS: There are no dilated loops of bowel. There are no pathologically enlarged lymph nodes. Ther e is no free intraperitoneal fluid. There is an umbilical hernia containing fat. The sacrum is normal . There is mild osteoarthritis of the sacroiliac joints. There is mild lumbar spondylosis. IMPRESSION: 1. Mild lumbar spondylosis. Reviewed, dictated and finalized at location A. IMPRESSION: 1. Mild lumbar spondylosis.
== END 2023-02-27 14:04 ==
LOC: MICIMG 14:04
PROVIDERS: PCP Emergency Medicine
DX: M47.816 Spondylosis without myelopathy or radiculopathy, lumbar region (principal)
CPT/HCPCS: 72132; 72193; Q9967

== ENCOUNTER → 2023-03-09 12:37 | Outpatient (CLI) | payer BC, SELFPAY ==
--- NOTE | ~2023-03-09 | XR_ITS ---
XR_[id number]_CR 03/09/2023 13:10 Indication: Neck pain Procedure: 3 views of the cervical spine Comparison: No prior studies for comparison. Findings: Vertebral body and disc heights are preserved. Odontoid process is normal. Lateral masses a re normally aligned. Lung apices are normal. No fracture or traumatic malalignment. No prevertebral s oft tissue abnormality. Odontoid process is normal. Impression: 1: No significant abnormality of the cervical spine. Reviewed, dictated and finalized at location L. Impression: 1: No significant abnormality of the cervical spine.
--- NOTE | ~2023-03-09 | XR_ITS ---
XR thoracic spine 3V 03/09/2023 13:10 Indication: Upper back pain Procedure: 3 views thoracic spine Comparison: No prior studies for comparison. Findings: There is accentuated thoracic kyphosis. There is mild levoscoliosis. Vertebral body heights are maintained. No paraspinal soft tissue abnormality. Pedicles intact. There is mild endplate degen erative change at multiple levels. Impression: 1: Mild thoracic spondylosis with levoscoliosis. Reviewed, dictated and finalized at location L. Impression: 1: Mild thoracic spondylosis with levoscoliosis.
== END ==
PROVIDERS: PCP Emergency Medicine; Visit Provider Emergency Medicine
DX: M54.2 Cervicalgia (principal); M47.814 Spondylosis without myelopathy or radiculopathy, thoracic region; M41.9 Scoliosis, unspecified
CPT/HCPCS: 72040; 72072

== ENCOUNTER 2023-06-22 04:38 | Emergency (ER) | payer BC, SELFPAY ==
--- NOTE | ~2023-06-22 | XR_ITS ---
EXAMINATION: XR knee LT 3V DATE: 06/22/2023 05:09 INDICATION: Left knee injury. TECHNIQUE: 3 views of left knee were obtained. COMPARISON: None. FINDINGS: Bone alignment is normal. No fracture. Joint spaces are normal. No knee joint effusion. IMPRESSION: 1. Normal left knee. Reviewed, dictated and finalized at location A. IMPRESSION: 1. Normal left knee.
[2023-06-22 04:43] VITALS: BP 109/77; PULSE 96; RESP 16; TEMP 36.8; O2SAT 100
[2023-06-22] MEDS: IBUPROFEN 400 MG TABLET PO (04:52)
[2023-06-22] MEDS: TETANUS,DIPHTHERIA,AC PERTUSSIS ADULT (0.5 ML) BOOSTRIX IM (04:53)
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
== END 2023-06-22 06:03 | disposition home or self-care (01) ==
PROVIDERS: Emergency Provider Emergency Medicine; PCP Emergency Medicine
DX: S83.92XA Sprain of unspecified site of left knee, initial encounter (principal); S80.212A Abrasion, left knee, initial encounter; F41.9 Anxiety disorder, unspecified; F32.A Depression, unspecified; M19.90 Unspecified osteoarthritis, unspecified site; J45.909 Unspecified asthma, uncomplicated; M79.7 Fibromyalgia; V00.141A Fall from scooter (nonmotorized), initial encounter; Z23 Encounter for immunization
CPT/HCPCS: 73562; 90715; 96372; 99283; A9270

== ENCOUNTER 2023-06-28 16:42 | Emergency (ER) | payer BC, SELFPAY ==
[2023-06-28 16:56] VITALS: BP 106/66; PULSE 98; RESP 18; TEMP 36.3; O2SAT 99
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
== END 2023-06-28 17:17 | disposition home or self-care (01) ==
PROVIDERS: Emergency Provider Nurse Practitioner; PCP Emergency Medicine
DX: L03.116 Cellulitis of left lower limb (principal); S80.212A Abrasion, left knee, initial encounter; F41.8 Other specified anxiety disorders
CPT/HCPCS: 99213; G0463

== ENCOUNTER 2023-08-14 08:10 | Outpatient (CLI) | payer BC, SELFPAY ==
--- NOTE | 2023-08-14 12:00 | NEURO_ITS ---
Impression: # Complains of neck and back pain. # Normal Nerve Conduction Study. # Normal and symmetrical F-waves. # No Carpal Tunnel Syndrome or ulnar neuropathy. # Normal needle/EMG exam. # Clinical correlation recommended. Nerve Conduction Studies Anti Sensory Summary Table Stim Site NR Peak (ms) P-T Amp (?V) Site1 Site2 Delta-P (ms) Dist (cm) Robbie (m/s) Left Median Anti Sensory (2-3nd Digit) Wrist 2.7 96.2 Wrist 2-3nd Digit 2.7 14.0 52 Wrist 2.5 85.2 Wrist 2-3nd Digit 2.7 14.0 52 Right Median Anti Sensory (2-3nd Digit) Wrist 2.7 90.0 Wrist 2-3nd Digit 2.7 14.0 52 Wrist 2.6 88.0 Wrist 2-3nd Digit 2.7 14.0 52 Left Radial Anti Sensory (Base 1st Digit) Wrist 1.9 19.9 Wrist Base 1st Digit 1.9 0.0 Right Radial Anti Sensory (Base 1st Digit) Wrist 2.2 23.2 Wrist Base 1st Digit 2.2 0.0 Left Sup Fibular Anti Sensory (Ant Lat Mall) 14 cm 3.3 21.0 14 cm Ant Lat Mall 3.3 16.0 48 Right Sup Fibular Anti Sensory (Ant Lat Mall) 14 cm 3.6 12.0 14 cm Ant Lat Mall 3.6 16.0 44 Left Sural Anti Sensory (Lat Mall) Calf 3.8 5.8 Calf Lat Mall 3.8 16.0 42 Right Sural Anti Sensory (Lat Mall) Calf 3.8 0.4 Calf Lat Mall 3.8 16.0 42 Left Ulnar Anti Sensory (5th Digit) Wrist 2.7 92.8 Wrist 5th Digit 2.7 14.0 52 Right Ulnar Anti Sensory (5th Digit) Wrist 2.4 77.8 Wrist 5th Digit 2.4 14.0 58 Motor Summary Table Stim Site NR Onset (ms) O-P Amp (mV) Site1 Site2 Delta-0 (ms) Dist (cm) Robbie (m/s) Left Lateral Plantar Motor (ADM) Med Mall 4.5 2.6 Right Lateral Plantar Motor (ADM) Med Mall 4.1 1.6 Left Median Motor (Abd Poll Brev) Wrist 3.0 4.9 Elbow Wrist 4.5 27.0 60 Elbow 7.5 4.1 Right Median Motor (Abd Poll Brev) Wrist 2.7 5.8 Elbow Wrist 5.0 28.0 56 Elbow 7.7 4.7 Left Peroneal Motor (Vastus Med) Ankle 4.0 3.6 Popit Ankle 8.1 40.0 49 Popit 12.1 2.6 Right Peroneal Motor (Vastus Med) Ankle 4.4 3.2 Popit Ankle 7.7 36.0 47 Popit 12.1 2.9 Left Tibial Motor (Abd Saravia Brev) Ankle 4.3 10.8 Knee Ankle 8.3 40.0 48 Knee 12.6 3.6 Right Tibial Motor (Abd Saravia Brev) Ankle 4.4 8.9 Knee Ankle 8.9 40.0 45 Knee 13.3 3.6 Left Ulnar Motor (Abd Dig Minimi) Wrist 2.0 7.0 A Elbow Wrist 4.9 29.0 59 A Elbow 6.9 5.9 Right Ulnar Motor (Abd Dig Minimi) Wrist 2.2 5.2 A Elbow Wrist 4.9 29.0 59 A Elbow 7.1 6.4 F Wave Studies NR F-Lat (ms) L-R F-Lat (ms) Left Median (Mrkrs) (Abd Poll Brev) 24.65 1.01 Right Median (Mrkrs) (Abd Poll Brev) 25.66 1.01 Left Peroneal (Mrkrs) (EDB) 46.52 0.67 Right Peroneal (Mrkrs) (EDB) 47.19 0.67 Left Tibial (Mrkrs) (Abd Hallucis) 48.78 0.03 Right Tibial (Mrkrs) (Abd Hallucis) 48.76 0.03 Left Ulnar (Mrkrs) (Abd Dig Min) 24.57 0.97 Right Ulnar (Mrkrs) (Abd Dig Min) 25.55 0.97 EMG Side Muscle Nerve Root Ins Act Fibs Amp Dur Recrt Comment Right 1stDorInt Ulnar C8-T1 Nml Nml Nml Nml Nml Right Ext Indicis Radial (Post Int) C7-8 Nml Nml Nml Nml Nml Right Ext Digitorum Radial (Post Int) C7-8 Nml Nml Nml Nml Nml Right BrachioRad Radial C5-6 Nml Nml Nml Nml Nml Right PronatorTeres Med
== END 2023-08-14 08:11 | disposition home or self-care (01) ==
PROVIDERS: PCP Emergency Medicine
DX: M54.10 Radiculopathy, site unspecified (principal)
CPT/HCPCS: 95886; 95913

== ENCOUNTER → 2023-09-14 08:26 | Outpatient (CLI) | payer BC, SELFPAY ==
--- NOTE | ~2023-09-14 | MR_ITS ---
MRI of the left knee Clinical history: Pain Technique: Coronal proton density and proton density-weighted images, sagittal proton-density and T2 fat-sat images, and axial proton-density fat-saturated images were acquired. Findings: Anterior and posterior cruciate ligaments are intact. Medial collateral ligament and the la teral collateral ligament complex are intact. Popliteus tendon is intact. There is prominent horizontal tear of the posterior horn of the medial meniscus, with associated smal l, developing para-meniscal cyst, which currently measures 4 mm. No lateral meniscal tear seen. Articular cartilage is well preserved throughout the knee. Bone marrow signals are unremarkable. Extensor mechanism is intact. No joint effusion or Cosby's cyst. Impression: Horizontal tear of the posterior horn of the medial meniscus with associated 4 mm developing parameni scal cyst. Reviewed, dictated and finalized at [facility]. A PROFESSIONAL Impression: Horizontal tear of the posterior horn of the medial meniscus with associated 4 mm developing parameniscal cyst.
== END ==
DX: M23.322 Other meniscus derangements, posterior horn of medial meniscus, left knee (principal); M23.032 Cystic meniscus, other medial meniscus, left knee
CPT/HCPCS: 73721

== ENCOUNTER 2024-03-15 20:42 | Emergency (ER) | payer BC, SELFPAY ==
[2024-03-15 20:51] VITALS: BP 128/72; PULSE 115; RESP 20; TEMP 36.9; O2SAT 100
[2024-03-15] MEDS: SODIUM CHLORIDE 0.9% IV 1,000 ML 999 ML IV CONT (22:19)
[2024-03-15] MEDS: LORazepam INJ (*CRX) 2 MG/ML VIAL 1 MG IV PUSH (22:31)
[2024-03-15 23:05] VITALS: BP 112/92; PULSE 91; RESP 18; O2SAT 100
--- NOTE | 2024-03-15 23:42 | ED.GENADULT ---
HPI - General Adult General Chief complaint: Anxiety Stated complaint: anxiety Time Seen by Provider: 03/15/24 22:20 History of Present Illness HPI narrative: patient 29-year-old female who presents emergency department with chief complaint of anxiety. Patient reports that she has been having difficulty sleeping recently and took a 5 mg THC gummy last week patient states this evening she was still having problems sleeping and decided to take 10 mg the patient reports after she took 10 mg she started to feel very anxious and felt very strange. The patient denies suicidal or homicidal ideation patient reports that she has not had a reaction like this before. Related Data Home Medications Medication Instructions Recorded Confirmed bupropion HCl 150 mg 24 hr tablet, 150 mg PO DAILY 12/19/21 12/19/21 extended release diltiazem HCl 120 mg 120 mg PO DAILY 12/19/21 12/19/21 capsule,extended release 24 hr montelukast 10 mg tablet 10 mg PO HS 12/19/21 12/19/21 (Singulair) Allergies Allergy/AdvReac Type Severity Reaction Status Date / Time adhesive tape Allergy Severe BLISTERS Verified 03/15/24 20:59 ammonia Allergy Severe Anaphylaxis Verified 03/15/24 20:59 latex Allergy Severe RASH, Verified 03/15/24 20:59 swelling mold Allergy Severe Dyspnea / Verified 03/15/24 20:59 SOB tioconazole Allergy Severe vaginal Verified 03/15/24 20:59 [From Monistat 1 swelling (tioconazole)] metronidazole Allergy Intermediate RASH, hives Verified 03/15/24 20:59 Sulfa (Sulfonamide Allergy Unknown Unknown Verified 03/15/24 20:59 Antibiotics) tumeric Allergy Severe Swelling, Uncoded 03/15/24 20:59 rash mildew AdvReac Unknown trouble Uncoded 03/15/24 20:59 breathing Review of Systems Review of Systems: A 10 system review of systems was completed on the patient and is negative except for what is stated in the HPI. Nursing and ancillary documentation was reviewed. [facility] Past Medical History Medical History Acute vaginitis Anxiety and depression Arthritis Asthma Fibromyalgia IBS (irritable bowel syndrome) PID (pelvic inflammatory disease) Sacroiliitis Scoliosis Spinal stenosis Tachycardia Thrombus Vaginal delivery x1 Surgical History Surgical History History of ankle surgery 2020 History of back surgery 2019, Ablation History of bilateral salpingectomy 2018 History of dilation and curettage History of endometrial ablation History of hysterectomy 08/18/2019 History of laparoscopy x2, exploratory surgery looking for endometriosis Hx of section X2 [place] teeth extracted Family History Family History Father Acute myocardial infarction Heart problem Mother Heart disease Alcoholism Grandparent Cancer either cervical or uterine Social History Social History Smoking status: Never smoker Alcohol intake: never Substance use: never Substance use type: marijuana Living arrangements: with family Occupation/Education: other 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 HEAD: Normocephalic, atraumatic. EYES: PERRLA and EOMI. ENT: Nares clear, no rhinorrhea or epistaxis. Mucous membranes moist. NECK: Supple. CHEST: Clear to auscultation. No respiratory distress. HEART: Regular rate and rhythm. No murmur heard. Normal peripheral pulses. ABDOMEN: Soft, nontender, nondistended, normal active bowel sounds. EXTREMIT
== END 2024-03-16 00:01 | disposition home or self-care (01) ==
PROVIDERS: Emergency Provider Emergency Medicine
DX: F12.920 Cannabis use, unspecified with intoxication, uncomplicated (principal); F41.9 Anxiety disorder, unspecified; J45.909 Unspecified asthma, uncomplicated; M79.7 Fibromyalgia; M19.90 Unspecified osteoarthritis, unspecified site; K58.9 Irritable bowel syndrome, unspecified; F32.A Depression, unspecified; Z90.79 Acquired absence of other genital organ(s); Z90.710 Acquired absence of both cervix and uterus
CPT/HCPCS: 96361; 96374; 99284; J2060; J7030

== ENCOUNTER 2025-04-27 18:18 | Emergency (ER) | payer BC, SELFPAY ==
--- NOTE | ~2025-04-27 | US_ITS ---
EXAMINATION: US pelvic complete INDICATION: History of ovarian cyst. Left lower quadrant pain. Comparison:Ultrasound dated 11/05/2021 TECHNIQUE: Multiple transabdominal sonographic images of the pelvis performed. FINDINGS: The uterus is surgically absent. Right ovary surgically absent. The left ovary is unremarkable measuring 3.8 x 2 x 3.4 cm with normal vascular flow. There is no free fluid in the pelvis. There are no abnormal masses seen on either side. IMPRESSION: 1. Unremarkable pelvic ultrasound status post hysterectomy. Reviewed, dictated and finalized at location B.
--- OUTSIDE RECORDS SUMMARY | 2025-04-27 18:21 | XMS_ITS | Patient Health Record ---
Author Organization [facility] Address [address] [place], [place] [id number] Care Team Providers Care Highway Landscape Architect Name Role Phone ADXA BUITRAGO Unavailable [phone] Morteza Caceres Unavailable Unavailable Allergies Allergen (clinical drug ingredient) Drug/Non Drug Allergy documented on EMR Reaction Allergy Type Onset Date Status Product containing sulfonamide (product) (uncoded) Unknown Allergy 06/01/2020 active metronidazole Flagyl Unknown Drug Allergy 06/01/2020 ac tive Latex Latex Unknown Allergy 06/01/2020 active Reason For Referral No Information Medications Medication SIG (Take, Route, Frequency, Duration) Notes Start Date End Date Status Medrol 4 MG as directed Orally 11/21/2024 Active Immunizations Vaccine Route Administration Date Status Comme nts Influenza, quadrivalent, spl it, preservative free, 3 years or older Unknown 08/10/2017 Administered Influenza, quadrivalent, spl it, preservative free, 3 years or older Unknown 08/16/2018 Administered Influenza, quadrivalent, spl it, preservative free, 3 years or older Unknown 07/30/2019 Administered Influenza, unspecified formulation Unknown 07/30/2019 A dministered Vital Signs Height-cm 162.56 cm 04/17/2025 Weight-kg 65.77 kg 04/17/2025 Height 64.00 in 04/17/2025 Weight 145 lbs 04/17/2025 BMI 24.89 kg/m2 04/17/2025 Encounters Encounter Location Date Provider Diagnosis [facility] [address] [place], [place] [id number] 11/21/2024 DAXA WHITTENBURG Posterior tibial tendinitis of right lower extremity M76.821 ; Pes planus of right foot M21.41 and Pain in right foot M79.671 [facility] [address] [id number] 04/17/2025 DAXA ISATUTENBURG Ingrowing nail L60.0 ; Cellulitis of right toe L03.031 ; Pain in right toe(s) M79.674 and Posterior tibial tendinitis of right lower extremity M76.821 [facility] [address] [id number] 12/21/2024 DAXA SHARBURG Posterior tibial tendinitis of right lower extremity M76.821 ; Flat foot [pes planus] (acquired), right foot M21.41 and Pain in right foot M79.671 [facility] [address] [id number] 01/24/2025 DAXA ISATUTENBURG Ingrowing nail L60.0 ; Cellulitis of right toe L03.031 and Pain in right toe(s) M79.674 [facility] [address] [id number] 02/08/2025 DAXA WHITTENBURG Ingrowing nail L60.0 and Encounter for other specified surgical aftercare Z48.89 [facility] [address] [id number] 04/20/2025 DAXABERONICA MYLESBURG Assessments Encounter Date Diagnosis (ICD Code) Assessment Notes Treatment Notes Treatment Clinical Notes Section Notes 11/21/2024 Posterior tibial tendinitis of right lower extremity (ICD-10 - M76.821) 11/21/2024 Pes planus of right foot (ICD-10 - M21.41) 12/21/2024 Flat foot [pes planus] (acquired), right foot (ICD-10 - M21.41) 12/21/2024 Posterior tibial tendinitis of right lower extremity (ICD-10 - M76.821) 01/24/2025 Cellulitis of right toe (ICD-10 - L03.031) 01/24/2025 Ingrowing nail (ICD-10 - L60.0) I discussed various treatment options to the patient for onychocryptosis. I discussed removal of the offending nail border and chemical matrixectomy to prevent regrowth. The patient decided on permanent removal of the nail border. The consent was signed and placed in the patients chart and all questions were answered. Following skin prep, the toe was injected with 3ccs of a 1:1 mixture of 0.5% marcaine plain and 1% lidocaine plain. A digital tournequet was applied and the offending nail borders was removed. Three applications of 89% phenol for 30 seconds each, were applied to the nail matrix to prevent regrowth. The digital tourniquet was released and the toe was cleansed with isopropyl alcohol. A dry sterile compressive dressing was applied and the patient was given soaking instructions. 02/08/2025 Ingrowing nail (ICD-10 - L60.0) 02/08/2025 Encounter for other specified surgical aftercare (ICD-10 - Z48.89) 04/17/2025 Cellulitis of right toe (ICD-10 - L03.031) 04/17/2025 Ingrowing nail (ICD-10 - L60.0) We discussed both conservative and surgical treatment options. We discussed the intra-operative and post-operative treatment course. We discussed the risks and complications including, but not limited to: pain, infection, swelling, numbness, under-correction, over-correction, stiffness, no improvement, and need for further surgery. No guarantees were given, nor implied. Questions encouraged and answered. Consent reviewed and placed in chart. The following procedures are proposed -Winograd left hallux 04/17/2025 Pain in right toe(s) (ICD-10 - M79.674) 01/24/2025 Pain in right toe(s) (ICD-10 - M79.674) 12/21/2024 Pain in right foot (ICD-10 - M79.671) 11/21/2024 Pain in right foot (ICD-10 - M79.671) 04/17/2025 Posterior tibial tendinitis of right lower extremity (ICD-10 - M76.821) Orthotic casting: The patient was casted for functional orthotic devices. This was done in the subtalar joint neutral position in a non-weightbearing fashion. The patient will follow-up in 3 weeks time to be dispensed and fitted with the devices. 11/21/2024 Other A trilok ankle brace was dispensed for the pateint's right and the patient was instructed on it's use. 12/21/2024 Other d/c trilok 02/08/2025 Other I advised the patient that no further treatment is necessary at this time. If the condition should worsen they should call the office. Plan Of Treatment Next Appt Details Provider Name:DAXA MCKINNEY, 05/11/2025 07:40:00 AM, Sunday [address], [place], [place], [id number], Provider Name:DAXA MCKINNEY, 06/16/2025 07:30:00 AM, [address] [place], [place], [id number], Provider Name:DAXA MCKINNEY, 06/22/2025 07:30:00 AM, Sunday [address], [place], [place], [id number], Insurance Providers Payer Name Payer Address Payer Phone Subscriber Number Group Number Insured Name Patient Relationship to Insured Coverage Start Date Coverage End Date [facility] ([facility]) ATTN CLAIMS [address] [place] [address] [id number] MARCIN DONATO Spouse - patient is the spouse of the insured
--- OUTSIDE RECORDS SUMMARY | 2025-04-27 18:21 | XMS_ITS | Patient Health Record ---
Author Organization [facility] Address [address] [place] [address] Care Team Providers Care Tailer Off Name Role Phone Morris REAVES, Morteza Primary Care Provider Darby Benavidez Unavailable [phone] Allergies Allergen (clinical drug ingredient) Drug/Non Drug Allergy documented on EMR Reaction Allergy Type Onset Date Status metronidazole metroNIDAZOLE Unknown Drug Allergy Active tioconazole Monistat 1 Unknown Drug Allergy 10/28/2022 Act simon Latex Latex Unknown Allergy 10/24/2022 Active Substance with sulfonamide structure and antibacterial mechanism of action (substance) Sulfa Antibiotics Unknown Drug Allergy 10/24/2022 Active red oak pollen extract [place] Unknown Drug Allergy 06/28 Active Reason For Referral No Information Medications Medication SIG (Take, Route, Frequency, Duration) Notes Start Date End Date Status ZyrTEC Allergy 10 MG take 1 tablet (10 mg) by oral route once daily Oral 1 Active buPROPion HCl ER (XL) 150 MG take 1 tablet (150 mg) by oral route once daily Oral 1 Active sertraline - mg unknown; take 1 tablet daily oral *Reorder from Do IT developers for eRx and Interaction Alerts* Active Ventolin HFA 108 (90 Base) MCG/ACT prn Inhalation Active Montelukast Sodium 10 MG take 1 tablet (10 mg) by oral route once daily in the evening Oral 1 Active Cyclobenzaprine HCl 5 MG prn Oral Active dilTIAZem HCl ER 120 MG take 1 capsule (120 mg) by oral route 1 time per day Oral 2 Active Problems Problem Type SNOMED Code ICD Code Onset Dates Problem Status W/U Status Risk Notes Problem Rheumatoid arthritis (53567405) 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 Metabolic Panel [phone] Insurance Providers Payer Name Payer Address Payer Phone Subscriber Number Group Number Insured Name Patient Relationship to Insured Coverage Start Date Coverage End Date Tracie PARIS [address] [place] [address] [id number] Massey Soledad Self - patient is the insured Medical (General) History Medical History History ICD Code Asthma; Fibromyalgia; Sinus tachycardia; Surgical History Surgery Date(Month/Year) Uterine Ablation; 2022-10-24 Hysterectomy; 2022-10-24 tarsal tunnel release; 2022-10-28 section; 2022-10-28 Tendon repair: right, Date of Procedure: 2020; 2022-10-28
--- OUTSIDE RECORDS SUMMARY | 2025-04-27 18:21 | XMS_ITS | Clinical Summary ---
Author Organization [facility] Address [address] [place] [address] Care Team Providers Care Communications Program Manager Name Role Phone Unavailable Primary Care Provider Unavailabl e Social History Tobacco Use Types Packs/Day Years Used Date Smoking Tobacco: Never Assessed Comments Unknown Sex and Gender Information Value Date Recorded Sex Assigned at Not on file Legal Sex Female 1:22 PM CDT Gender Identity Not on file Sexual Orientation Not on file Plan of Treatment Upcoming Encounters Date Type Department Care Team (Latest Contact Info) Description 06/16/2025 7:30 AM CDT Hospital Encounter [facility] [place] [address] Prudencio Loza, CEDRICKM [address] [place] [phone] 06/16/2025 7:30 AM CDT - 06/16/2025 8:45 AM CDT [place] [address] Prudencio Loza DPM [address] [place] [address] WINOGRAD PROCEDURE LEFT BIG TOE LATERAL BORDER Scheduled Procedures Name Priority Associated Diagnoses Date/Ti me REMOVAL TOENAIL P&A (MATRIXECTOMY) INGROWN TOENAIL L60.0 06/16/2025 7:30 AM CDT Health Maintenance Due Date Last Done Comments Cervical Cancer Screening Pa p Smear (Age 30 to 64) Every 3 Years 1993 Annual Physical 02/15/1996 Hepatitis C 2011 DTaP, Tdap and Td Vaccines ( 1 - Tdap) 02/15/2012 Hepatitis B Vaccines (1 of 3 - 19+ 3-dose series) 02/15/2012 HPV Vaccines (1 - 3-dose SCD M series) 02/15/2020 Cervical Cancer Screening Pa del with HPV Testing (Age 30 to 64) Every 5 Years 2023 Cervical Cancer Screening with HPV 2023 COVID-19 Vaccine ( - 2023-2 5 season) 2024 Meningococcal B Vaccine Aged Out No l onger eligible based on patient's age to complete this topic Meningococcal Vaccine Aged Out No estuardo mor eligible based on patient's age to complete this topic Pneumococcal Vaccine: Pediat rics (0 to 5 Years) and At-Risk Patients (6 to 49 Years) Aged Out No longer eligible b ased on patient's age to complete this topic RSV Immunizations Under 20 Months Aged Out No longer eligible based on patient's age to complete this topic Goals Goal Patient Goal Type Associated Problems Recent Progress Patient-Stated? Author Autogenerat ed Goal Care Plan Autogenerated Problem No Brittany Goldberg, RN Additional Health Concerns Active Problems Noted Date Diagnosed Date Autogenerated Problem 04/18/2025
--- OUTSIDE RECORDS SUMMARY | 2025-04-27 18:21 | XMS_ITS | Clinical Summary ---
Author Organization [facility] HealthCare Care Team Providers Care Design Agent Name Role Phone Morteza Caceres MD Primary Care Provider [phone] Malcom Church MD Unavailable [phone] Allergies Active Allergy Reactions Criticality Noted Date Comments Adhesive Redness High 09/03/2019 ONLY WHEN ON FOR EXTENDED PERIODS-MILD REDNESS/IRRITATION Ammonia Solution, Strong Anaphylaxis High 09/03/2019 Metronidazole Hives,Itching High 01/25/2016 Took in 2010 Kiwi Itching Low 06/24/2021 Latex Rash Medium 09/03/2019 Mold Shortness of breath High 09/03/2019 Monistat 1 Triple Action Swelling,Other (See comments) Medium 02/21/2021 Chemical titus Mushroom Hives Medium 09/03/2019 When she touches Rector Unknown 10/12/2023 Allergy testing Sulfa (Sulfonamide Antibiotics) Unknown Low 01/25/2016 Sulfadiazine Unknown 01/25/2016 Turmeric Itching,Swelling Medium 02/04/2021 Medications montelukast (SINGULAIR) 10 mg tabletIndications :Seasonal Allergic Rhinitis Take 1 tablet (10 mg total) by mouth nightly Active VENTOLIN HFA 90 mcg/actuation inhaler Inhale 2 puffs every 8 (eight) hours as needed for shortness of breath or wheezing 0 Active buPROPion XL (WELLBUTRIN XL) 150 mg 24 hr tabletIndications :Anxiety with Depression Take 1 tablet (150 mg total) by mouth every morning 1 Active ALPRAZolam (XANAX) 0.5 mg tablet Take 1 tablet (0.5 mg total) by mouth nightly as needed for anxiety Pre-op Active lisdexamfetamine (VYVANSE) 30 mg capsuleIndication s:Attention-Defic it Hyperactivity Disorder Take 1 capsule (30 mg total) by mouth every morning 4 Active ketoconazole (NIZORAL) 2 % creamIndications: tinea versicolor Apply 1 Application topically as needed for rash 3 Active sertraline (ZOLOFT) 50 mg tabletIndications :Anxiety with Depression Take 1 tablet (50 mg total) by mouth every morning Active cetirizine (ZyrTEC) 10 mg tabletIndications :Seasonal Allergic Rhinitis Take 1 tablet (10 mg total) by mouth every morning Active inulin (FIBER GUMMIES ORAL)Indications: stomach Take 1 capsule by mouth daily as needed Active dilTIAZem (CARDIZEM) 30 mg tablet Take 1 tablet (30 mg total) by mouth as needed (take 1 tab as needed 30-45 min before activity that triggers palpitations) 60 tablet 3 4 Active cyclobenzaprine (FLEXERIL) 5 mg tablet Take 1-2 tablets (5-10 mg total) by mouth 2 (two) times a day as needed for muscle spasms for up to 30 doses 30 tablet 2 5 Active dilTIAZem CD/XR/XT (DILT-XR) 120 mg 24 hr capsule Take 1 capsule (120 mg total) by mouth daily Please make an appointment for more refills. 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 Fragilis. She then appeared to have re-accumulated post-drainage while on PO amoxicillin-clavulanate. S/P repeat drainage by IR 09/04/2019. It was suspected that re-accumulation was related either to inadequate drainage during first hospitalization, and/or another pathogen not previously identified on original culture that is not adequately covered by PO amoxicillin-clavulanate. On review of microbiological data, it appears that her pelvic aspirate grew two isolates of B. Fragilis, one of which was resistant to Pip-Tazo suggesting beta-lactamase resistance. While she appears to have resolved symptomatically and on CT 10/12/2019 on treatment with Pip-Tazo followed by Augmentin, out of an abundance of caution will have patient complete an additional 2 week course of Clindamycin 300mg QID. She understands that this measure is intended to make sure that we completely eradicate resistant organism and minimize the likelihood of recurrence. She should notify ID clinic of any new pelvic/abdominal pain or fevers. Patient inquires if she can proceed with getting a tattoo in January 2020. This is fine but she is advised to get a tattoo from a reputable source that uses clean needles to prevent infections. Left carpal tunnel syndrome 10/25/2019 Chronic low back pain 10/25/2019 Numbness of hand 10/25/2019 Sciatica 10/25/2019 Tinea corporis due to trichophyton 10/25/2019 Candidiasis 10/12/2019 Fibrocystic disease of breast 10/12/2019 Hemorrhoids 10/12/2019 Pelvic abscess in female 09/22/2019 Acute kidney injury 09/22/2019 Fibromyalgia 05/18/2019 Polycythemia 01/11/2018 Asthma 01/25/2016 Palpitations 01/25/2016 Shortness of breath 01/25/2016 Chest pain 01/25/2016 Resolved Problems Problem Noted Date Diagnosed Date Resolved Date Acute pharyngitis 10/25/2019 01/15/2020 Wrist joint pain 10/25/2019 01/15/2020 Bronchitis 10/12/2019 01/15/2020 Dyspnea 10/12/2019 01/15/2020 Dysuria 10/12/2019 01/15/2020 Gestational edema 10/12/2019 10/25/2019 Irregular menses 10/12/2019 10/25/2019 Low grade squamous intraepit helial lesion (LGSIL) on cervicovaginal cytologic smear 10/12/2019 09/11/2020 Menometrorrhagia 10/12/2019 10/25/2019 Tachyarrhythmia 10/12/2019 10/16/2022 Vulvovaginitis 10/12/2019 09/11/2020 Uterine size-date discrepancy 10/12/2019 10/25/2019 Uterine bleeding 09/23/2019 09/11/2020 Overview (09/11/2020): prior ablation and uterine bleeding had hysterectomy Abscess after procedure 09/04/201908/29 Assessment & Plan (09/04/2019 5:48 PM 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 Soledad Donato is a 24 year old woman presenting with pelvic pain and fever 17 days following a hysterectomy (performed for abnormal uterine bleeding). This abscess had been previously drained at OSH where she was bacteremic with B fragilis, and appears to have re-accumulated post drainage while on PO amoxicillin-clavulanate. Now s/p repeat drainage (drian still in place) by interventional radiology earlier today. Possible re-accumulation is related either to inadequate drainage during first hospitalization, and/or another pathogen not previously identified on original culture that is not adequately covered by PO amoxicillin-clavulanate. 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 Specifically would ensure she has been previously tested for G/C, HIV and RPR. If not then would add-on testing tonight. History of delivery 12/07/2015 09/22/2019 Patient desires vaginal colleen h after section () 12/07/2015 09/22/2019 Supervision of high risk pre gnancy in second trimester 12/07/2015 09/22/2019 Encounters Date Type Department Care Team Description 04/19/2025 3:45 PM CDT Lab [facility] [address] [place] [address] 02/10/2025 10:28 AM CDT - 02/10/2025 11:59 PM CDT Hospital Encounter [facility] Radiology at [facility] [address] [place] [address] Cervical pain Discharge Disposition: Discharge to home or self care 02/10/2025 10:15 AM CDT Office Visit [facility] [address] [facility] 1st Floor [address] [place] [address] Keegan Farrell MD Cervical pain (Primary Dx); Cervical myofascial pain syndrome; Strain of lumbar paraspinal muscle, initial encounter from Last 3 Months Immunizations Immunization Administration Dates Next Due Influenza, Unspecified 07/30/2019 Surgical History Surgery Date Site/Laterality Comments TUBAL LIGATION 09/28/2015 - 09/27/2016 DILATION AND CURETTAGE OF UTERUS for AUB. x2 2010, 2012 ENDOMETRIAL ABLATION 09/28/2017 - 09/27/2018 PELVIC LAPAROSCOPY HYSTERECTOMY 08/18/2019 HEMORRHOID SURGERY 08/10/2024 several ablations FOOT SURGERY 04/18/2021 Right SECTION x2. 2011, 2015 HAND TENDON SURGERY 07/09/2021 Right rt FCR tendon repair HAND TENDON SURGERY 12/31/2021 Right rt FCR tendon repair at level of wrist FOOT SURGERY 06/28/2022 - 07/28/2022 Left FL FLUORO GUIDED INTERMEDIATE JOINT INJECTION PUBIC SYMPHYSIS 01/29/2024 FL FLUORO GUIDED INTERMEDIATE JOINT INJECTION PUBIC SYMPHYSIS 08/11/2024 Medical History Medical History Date Comments Irregular menses Anxiety 02/2020 Skin tag of perianal region Arthritis Depression Seasonal allergies Tachycardia Spondylosis Scoliosis Urinary tract infection none rec ent Spinal stenosis GERD (gastroesophageal reflux disease) IBS (irritable bowel syndrome) Itching WITH ANESTHESIA HAS HAD BENADRYL IN THE PAST Tachycardia ON DILTIAZEM, NE GATIVE WORK UP Asthma IN HALERS Pneumonia A KID Pharyngitis 06/20/2021 + STREP 06/20/20 Anesthesia complication itching after anesthesia, has been given benadryl in the past Strep throat exposure 05/2021 on antibio tics Folliculitis 06/26/2021 following amoxic illen Acute kidney injury FROM ANTIBIO TICS 2019 Osteoarthritis Motion sickness Arrhythmia inappropriate si nus tach treated with cardizem Anemia Ovarian cyst Blood clot in vein to left ovary after hysterectomy Rheumatoid arthritis (HCC) Family History Medical History Relation Name Comments Bleeding Disorder Father Olivier Reyes Cancer Father Olivier Reyes Heart attack Father Olivier Reyes Sudden Cardiac Father Olivier Reyes Lupus Father's Sister 1 Cancer Father's Sister 2 Jeanie Reyes Cancer Maternal Grandmother Skye Preciadonecourtney Uterine cancer Maternal Grandmother Skye Garland Alcohol abuse Mother Radha Watts Anesthesia problems Mother Radha Watts PONV Arthritis Mother Radha Watts Early Mother Radha Watts Heart disease Mother Radha Watts Lung disease Mother Radha Watts Mental illness Mother Radha Watts Miscarriages / Stillbirths Mother Radha Watts PONV Mother Radha Watts Scoliosis Mother Radha Watts Cancer Mother's Brother 1 Jace Renneker Heart disease Mother's Brother 2 Cesar Renneker Heart disease Mother's Brother 3 Kannan Renneker Ovarian cancer Mother's Sister 1 Cancer Mother's Sister 2 Vida Pastranaton Cancer Paternal Grandmother Soledad Sullivan Relation Name Status Comments Father Olivier Reyes Father's Sister 1 Father's Sister 2 Jeanie Reyes Maternal Grandmother Skye Preciadoneker Mother Radha Watts Alive Mother's Brother 1 Jace Renneker Mother's Brother 2 Cesar Renneker Mother's Brother 3 Kannan Renneker Mother's Sister 1 Mother's Sister 2 Vida Dong Paternal Grandmother Soledad Sullivan Social History Tobacco Use Types Packs/Day Years Used Date Smoking Tobacco: Never Smokeless Tobacco: Never Alcohol Use Standard Drinks/Week Comments Not Currently 0 (1 standard drink = 0.6 oz pur e alcohol) AUDIT-C Answer Date Recorded Q1: How often do you have a drink containing alc ohol? Monthly or less 10/12/2023 Q2: How many drinks containi ng alcohol do you have on a typical day when you are drinking? 1 or 2 10/12/2023 Q3: How often do you have si x or more drinks on one occasion? Never 10/12/2023 Exercise Vital Sign Answer Date Recorde d Days of Exercise per Week 0 days 2018 Minutes of Exercise per Session 0 min 09/22/2019 Personal Safety Answer Date Recorded Have you ever been in or are you currently in a harmful physical or emotional relationship or is someone making you feel afraid or unsafe? 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 Gender Identity Female 03/13/2020 3:02 PM CDT Sexual Orientation Choose not to disclose 2019 3:02 PM CDT Obstetrics History Para Term AB IAB SAB Ectopic Multiple Livin g Live Births 3 3 2 1 3 3 Date Outcome GA Total Labor Labor/3rd Weight Sex Type Anes PTL Mely A1 A5 Name Clin 2009 Term Vag-S pont Living 2011 Term CS-Un spec Living 2015 CS-Un spec Living Last Filed Vital Signs Vital Sign Reading Time Taken Comments Blood Pressure 113/79 10/31/2024 7:48 AM ZIPPER SEWING MACHINE OPERATOR Pulse 95 10/31/2024 7:48 AM ZIPPER SEWING MACHINE OPERATOR Temperature 36.6 C (97.8 F) 10/31/2024 7:48 AM ZIPPER SEWING MACHINE OPERATOR Respiratory Rate 16 08/11/2024 2:12 PM ZIPPER SEWING MACHINE OPERATOR Oxygen Saturation 99% 10/31/2024 7:48 AM ZIPPER SEWING MACHINE OPERATOR Inhaled Oxygen Concentration - - Weight 66.5 kg (146 lb 9.6 oz) 02/10/2025 10:09 AM CDT Height 162.6 cm (5' 4) 02/10/2025 10:09 AM CDT Body Mass Index 25.16 02/10/2025 10:09 AM CDT Plan of Treatment Health Maintenance Due Date Last Done Comments Depression Screening 1993 Varicella Vaccines (1 of 2 - 13+ 2-dose series) 2006 Hepatitis B Screening 2011 Regular Well Visit/Exam 18-64 2011 Pneumococcal vaccine <65 (1 of 2 - PCV) 02/15/2012 HPV Vaccines (1 - 3-dose SCD M series) 02/15/2020 Influenza Vaccine (#1) 2025 4, 08/29/2023, 07/30/2019, Additional history exists DTaP/Tdap/Td Vaccine (2 - Td or Tdap) 06/22/2033 06/22/2023 Hepatitis C Screening Completed 03/07/2020 Covid-19 Vaccine Completed 07/05/2024, 10/2022, 09/03/2021, Additional history exists Medical Devices Implanted Type Area [employer] Hockey [employer] Lacrosse Coach Device Identifier Shelf Expiration Date Model / Serial / Lot [employer] System Fixation Meniscal Reverse Curved Bend Tool Fast Fix Flex [id number] - [id number] Implanted:Qty: 1 on 10/19/2023 by Shant Jin MD at [facility] Orthopedic Page Left: Knee [employer] 06/11/2026 [id number] / / [id number] [employer] System Fixation Meniscal Reverse Curved Bend Tool Fast Fix Flex [id number] - [id number] Implanted:Qty: 1 on 10/19/2023 by Shant Jin MD at [facility] Orthopedic Page Left: Knee [employer] 06/11/2026 [id number] / / [id number] Procedures Procedure Name Priority Date/Time Associated Diagnosis Comments ESTRADIOL Routine 04/19/2025 3:55 PM CDT FOLLICLE STIMULATING HORMONE Routine 04/19/2025 3:55 PM CDT TSH Routine 04/19/2025 3:55 PM CDT BLOOD MISC TO [place] Routine 04/19/2025 3: 48 PM CDT XR SPINE CERVICAL COMPLETE 4 OR 5 VW Schedule Routine, Read Routine (OP Routine) 02/10/2025 10:33 AM CDT Cervical pain HEPATITIS C ANTIBODY Routine 03/07/2020 11:12 AM CDT Arthralgia, unspecified joint Myalgia Skin rash Other fatigue from Last 3 Months or Most Recently Relevant to Health Maintenance Results * Estradiol (04/19/2025 3:55 PM CDT) Estradiol 38.9 pg/mL Comment: Interpretive Data Males: 11 43 pg/mL Females: Premenopausal: 31 533 pg/mL Postmenopausal: < 50 pg/mL Patients treated with Fluvestrant (Faslodex) should be tested using an alternate assay such as LC-MS due to potential for cross-reactivity. Estradiol varies widely throughout the menstrual cycle. Current interpretive data was last revised 2024. Testing performed by: [facility], [address] [place]., [address] Blood 04/19/2025 3:55 PM CDT 04/19/2025 7:10 PM CDT Jace Higginbotham MD LAB BLOOD ORDERABLES Karmen l Result Performing Organization Address City/[facility]/ZIP Co de Phone Number [facility] ([place]) [address] [facility] [place] [address] * TSH (04/19/2025 3:55 PM CDT) Thyroid Stimulating Hormone 0.98 0.30 - 4.20 mcIUnit/mL [facility] ([place]) Blood 04/19/2025 3:55 PM CDT 04/19/2025 3:59 PM CDT Jace Higginbotham MD LAB BLOOD ORDERABLES Karmen l Result Performing Organization Address [facility] Co de Phone Number [facility] ([place]) [address] [place] [address] [place] [address] * Follicle stimulating hormone (04/19/2025 3:55 PM CDT) FSH 8.4 IUnits/L Comment: Interpretive Data Male: Adults: 1.5 - 12.4 IUnits/L Female: Follicular: 3.5 - 12.5 IUnits/L Ovulation: 4.7 - 21.5 IUnits/L Luteal: 1.7 - 7.7 IUnits/L Postmenopausal: 25.8 - 134.8 IUnits/L Current interpretive data was last revised 2015. Testing performed by: [facility], [address] [place]., [address] Blood 04/19/2025 3:55 PM CDT 04/19/2025 7:10 PM CDT us Jace Higginbotham MD LAB BLOOD ORDERABLES Karmen gallardo Result [facility] [place] [facility] [place] [address] * XR Spine Cervical Complete 4 or 5 Views (02/10/2025 10:33 AM CDT) Anatomical Region Laterality Modality Spine N/A Computed Radiogr aphy 02/10/2025 1:16 PM CDT Impressions 02/10/2025 3:57 PM CDT 1. No osseous abnormality. Dictated by: Al Roberts M.D. The radiology attending physician has personally reviewed this study, and had reviewed and/or edited this written report and agrees with it. Electronically signed by: Willa Jimenez MD Narrative 02/10/2025 3:57 PM CDT EXAMINATION: XR SPINE CERVICAL COMPLETE 4 OR 5 VW HISTORY: Neck pain. FINDINGS: 4 radiographs of the cervical spine are submitted for interpretation with comparison made to 01/22/2023. There is straightening of the normal cervical lordosis. There is no vertebral body height loss. The prevertebral soft tissues are normal. No dynamic listhesis with flexion or extension. Procedure Note Willa Jimenez MD - 02/10/2025 EXAMINATION: XR SPINE CERVICAL COMPLETE 4 OR 5 VW HISTORY: Neck pain. FINDINGS: 4 radiographs of the cervical spine are submitted for interpretation with comparison made to 01/22/2023. There is straightening of the normal cervical lordosis. There is no vertebral body height loss. The prevertebral soft tissues are normal. No dynamic listhesis with flexion or extension. IMPRESSION: 1. No osseous abnormality. Dictated by: Al Roberts M.D. The radiology attending physician has personally reviewed this study, and had reviewed and/or edited this written report and agrees with it. Electronically signed by: Willa Jimenez MD us Keegan Farrell MD IMG XR PROCEDURES Final Res ult * Hepatitis C antibody (03/07/2020 11:12 AM CDT) Hep C Ab NON-REACTI VE NON-REACT DEVON [facility] SIGNAL TO CUT-OFF 0.02 <1.00 [facility] Comment: HCV antibody was non-reactive. There is no laboratory evidence of HCV infection. In most cases, no further action is required. However, if recent HCV exposure is suspected, a test for HCV RNA (test code 30997) is suggested. For additional information please refer to http://education.Sportody/faq/TCQ61c4 (This link is being provided for informational/ educational purposes only.) Blood specimen (specimen) 03/07/2020 11:12 AM CDT 03/07/2020 11:13 AM CDT Narrative [facility] - 03/13/2020 11:54 PM CDT FASTING:YES FASTING: YES Marilou Diamond MD LAB MICROBIOLOGY - GENERAL ORDERABLES Final Result [facility] [address] [facility] [place] [address] from Last 3 Months or Most Recently Relevant to Health Maintenance Insurance [place] [employer] [facility] [employer] [place] [employer] [place] Advance Directives For more information, please contact: [phone] * Full Code (Latest Code Status on File) Date Activated Date Inactivated Comments 09/03/2019 5:55 PM 09/09/2019 7:01 PM Care Teams Design Agent Relationship Specialty Start Date End Date Morteza Caceres MD [address] [place] [address] PCP - General 09/03/19 Malcom Church MD [address] [place] [address] Consulting Physician Cardiology 06/26/21
--- OUTSIDE RECORDS SUMMARY | 2025-04-27 18:21 | XMS_ITS | Clinical Summary ---
Author Organization [facility] Address [address] [place] [address] Care Team Providers Care Market Research Coordinator Name Role Phone Morteza Caceres MD Primary Care Provider [phone] Source Comments [facility],non-owned Affiliates and Associated Physician Practices is amultiple site organization consisting of ambulatory clinics and hospital sitesin [place], [place], [place] and [place]. This disclosure is being madepursuant to the Care Everywhere program and may not contain all information available regarding this patient. Last updated 18.[facility] Allergies Active Allergy Reactions Criticality Noted Date Comments Latex 08/10/2017 Metronidazole Urticaria Medium 02/06/2019 Sulfa Drugs Unknown 02/06/2019 Medications * Be aware that medications may not be up to date on this document. Alwaysverify current medications with the patient. AMITRIPTYLINE HCL EX Active montelukast (SINGULAIR) 10 MG tablet Take 10 mg by mouth at bedtime Active Active Problems Problem Noted Date Diagnosed Date History of delivery 12/07/2015 Patient desires vaginal after sec tion () 12/07/2015 Supervision of high risk in [facility] 12/07/2015 Immunizations Immunization Administration Dates Next Due INFLUENZA VACCINE, QUADR. 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 Gender Identity Not on file Sexual Orientation Not on file Last Filed Vital Signs Vital Sign Reading Time Taken Comments Blood Pressure - - Pulse 106 02/06/2019 10:12 AM CDT Temperature 36.9 C (98.5 F) 02/06/2019 10:12 AM CDT Respiratory Rate - - Oxygen Saturation 97% 02/06/2019 10:12 AM CDT Inhaled Oxygen Concentration - - Weight 63.5 kg (140 lb) 02/06/2019 10:12 AM CDT Height 162.6 cm (5' 4) 02/06/2019 10:12 AM CDT Body Mass Index 24.03 02/06/2019 10:12 AM CDT Plan of Treatment Health Maintenance Due Date Last Done Comments HIV SCREENING 02/15/2008 HEPATITIS C SCREENING 02/10/2011 DTAP/TDAP/TD VACCINES (1 - Tdap) 02/15/2012 HEPATITIS B VACCINE (1 of 3 - 19+ 3-dose series) 02/15/2012 HPV VACCINE (1 - 3-dose SCDM series) 02/15/2020 COVID-19 VACCINE (1 - 2023-2 5 season) 2024 DEPRESSION SCREENING 09/28/2024 INFLUENZA VACCINE (#1) 2025 9, 08/16/2018, 08/10/2017 ZOSTER VACCINE (1 of 2) 2043 HIB VACCINE Aged Out No longer eligi ble based on patient's age to complete this topic MENINGOCOCCAL (Group B) VACCINE SHARED DECISION-MAKING Aged Out No longer eligible based on patient's age to complete this topic MENINGOCOCCAL GROUPS A/C/Y/W VACCINE Aged Out No longer eligible b ased on patient's age to complete this topic PNEUMOCOCCAL VACCINE Aged Out No long er eligible based on patient's age to complete this topic Insurance [employer] Care Teams Market Research Coordinator Relationship Specialty Start Date End Date Morteza Caceres MD PCP - General 01/30/21
--- OUTSIDE RECORDS SUMMARY | 2025-04-27 18:21 | XMS_ITS | Clinical Summary ---
Author Organization [facility] Address [address] [place] [address] Phone Care Team Providers Care Service Manager Name Role Phone Morteza Caceres Primary Care Provider Allergies Active Allergy Reactions Criticality Noted Date Comments Ammonia Shortness of Breath High 01/11/2018 Coconut Flavoring Agent (Non-Screening) Itching,Other (see Comments) Medium 01/11/2018 Abdominal cramping Metronidazole Hives Medium 01/11/2018 Latex Rash,Itching Low 08/10/2017 Molds & Smuts Runny Nose Low 01/11/2018 Sulfa Antibiotics Unknown 01/11/2018 Medications Albuterol Sulfate (VENTOLIN HFA IN) take by inhalation. Active montelukast (SINGULAIR) 10 MG Tablet Take 10 mg by mouth every evening. Active fluticasone (FLONASE) 50 MCG/ACT Suspension as needed. Active loratadine (CLARITIN) 10 MG Tablet as needed. 0 04/04/2018 Active Active Problems Problem Noted Date Diagnosed Date Polycythemia 01/11/2018 Family History Medical History Relation Name Comments Cancer Father polycythemia Heart Attack Father Cancer Maternal Grandmother cervica l Heart Disease Mother Cancer Paternal Grandmother colon Relation Name Status Comments Father Maternal Grandmother Mother Paternal Grandmother Social History Tobacco Use Types Packs/Day Years Used Date Smoking Tobacco: Never Smokeless Tobacco: Never Alcohol Use Standard Drinks/Week Comments No 0 (1 standard drink = 0.6 oz pur e alcohol) PHQ-2 Answer Date Recorded PHQ-2 Score 0 06/14/2019 Comments Unknown Sex and Gender Information Value Date Recorded Sex Assigned at Not on file Legal Sex Female 4:15 PM CDT Gender Identity Not on file Sexual Orientation Not on file Last Filed Vital Signs Vital Sign Reading Time Taken Comments Blood Pressure 136/92 06/14/2018 11:37 AM CDT Pulse 94 06/14/2018 11:37 AM CDT Temperature 36.7 C (98 F) 06/14/2018 11:37 AM CDT Respiratory Rate 16 06/14/2018 11:37 AM CDT Oxygen Saturation 98% 06/14/2018 11:37 AM CDT Inhaled Oxygen Concentration - - Weight 59 kg (130 lb) 06/14/2018 11:37 AM CDT Height 162.6 cm (5' 4) 06/14/2018 11:37 AM CDT Body Mass Index 22.31 06/14/2018 11:37 AM CDT Plan of Treatment Health Maintenance Due Date Last Done Comments Hepatitis C Virus (HCV) Screening 1993 TdaP Immunization 1993 Human Papillomavirus (HPV) Immunization (1 - 3-dose series) 02/15/2008 Hepatitis B Immunization (1 of 3 - 19+ 3-dose series) 02/15/2012 Pap Smear 2014 Cervical Cancer Screening (CCS) 2023 HPV/Cotest 2023 SARS-COV-2 Immunization ( season) 2024 09/03/2021, 02/01/2021, 01/11/2021 Influenza Immunization (#1) 05/29/202510/2018, 08/16/2018, 08/10/2017 Respiratory Syncytial Virus (RSV) Immunization (Adult) (1 - 1-dose 75+ series) 02/15/2068 Meningococcal Immunization (ACWY) Aged Out No longer eligible b ased on patient's age to complete this topic Pneumococcal Immunization Combined Aged Out No longer eligible b ased on patient's age to complete this topic Rotavirus Immunization Aged Out No lo nger eligible based on patient's age to complete this topic Care Teams Service Manager Relationship Specialty Start Date End Date Morteza Caceres [address] [place] [address] PCP - General Family Medicine 01/11/18
--- OUTSIDE RECORDS SUMMARY | 2025-04-27 18:21 | XMS_ITS | Continuity of Care Document ---
Author Organization [facility] Address [address] [place] [address] [place] [address] Phone Care Team Providers Care Recycling Program Manager Name Role Phone Morteza Caceres MD Unavailable Unavailable Allergies, Adverse Reactions, Alerts Substance Reaction Status Criticality Sulfa (Sulfonamide Antibiotics) Active No Information latex Active No Information metronidazole Active No Information Medications Medication Instructions Dosage Effective Dates (start - stop) Status Comments lisdexamfetamine 30 mg capsule take 1 capsule by oral route every day in the morning 30 MG - Active Singulair 10 mg tablet take 1 tablet by oral route every day in the evening 10 MG - Active Wellbutrin XL 150 mg 24 hr tablet, extended release take 1 tablet by oral route every morning 150 MG - Active Zoloft 50 mg tablet take 1 tablet by oral route every day 50 MG - Active albuterol sulfate HFA 90 mcg/actuation aerosol inhaler inhale 1 puff by inhalation route every 4 - 6 hours as needed as needed 1 puff - Active PRN for sob diltiazem CD 120 mg capsule,extended release 24 hr take 1 capsule by oral route every day 120 MG - Active Procedures Procedure Date PREV VISIT, EST, AGE 18-39 OFFICE/OUTPATIENT VISIT, EST OFFICE/OUTPATIENT VISIT, EST OFFICE/OUTPATIENT VISIT, EST OFFICE/OUTPATIENT VISIT, EST OFFICE/OUTPATIENT VISIT, EST OFFICE/OUTPATIENT VISIT, EST OFFICE/OUTPATIENT VISIT, EST OFFICE/OUTPATIENT VISIT, EST PREV VISIT, EST, AGE 18-39 OFFICE/OUTPATIENT VISIT, EST OFFICE/OUTPATIENT VISIT, EST OFFICE/OUTPATIENT VISIT, EST OFFICE/OUTPATIENT VISIT, EST OFFICE/OUTPATIENT VISIT, EST OFFICE/OUTPATIENT VISIT, EST OFFICE/OUTPATIENT VISIT, EST OFFICE/OUTPATIENT VISIT, EST OFFICE/OUTPATIENT VISIT, EST OFFICE/OUTPATIENT VISIT, EST OFFICE/OUTPATIENT VISIT, EST PREV VISIT, EST, AGE 18-39 OFFICE/OUTPATIENT VISIT, EST OFFICE/OUTPATIENT VISIT, EST OFFICE/OUTPATIENT VISIT, EST OFFICE/OUTPATIENT VISIT, EST OFFICE/OUTPATIENT VISIT, EST PREV VISIT, EST, AGE 18-39 OFFICE/OUTPATIENT VISIT, EST OFFICE/OUTPATIENT VISIT, EST OFFICE/OUTPATIENT VISIT, EST OFFICE/OUTPATIENT VISIT, EST OFFICE/OUTPATIENT VISIT, EST OFFICE/OUTPATIENT VISIT, EST OFFICE/OUTPATIENT VISIT, EST OFFICE/OUTPATIENT VISIT, EST OFFICE/OUTPATIENT VISIT, EST PREV VISIT, EST, AGE 18-39 OFFICE/OUTPATIENT VISIT, EST OFFICE/OUTPATIENT VISIT, EST OFFICE/OUTPATIENT VISIT, EST OFFICE/OUTPATIENT VISIT, EST OFFICE/OUTPATIENT VISIT, EST OFFICE/OUTPATIENT VISIT, EST OFFICE/OUTPATIENT VISIT, EST OFFICE/OUTPATIENT VISIT, EST OFFICE/OUTPATIENT VISIT, EST OFFICE/OUTPATIENT VISIT, EST OFFICE/OUTPATIENT VISIT, EST OFFICE/OUTPATIENT VISIT, EST PREV VISIT, EST, AGE 18-39 OFFICE/OUTPATIENT VISIT, EST OFFICE/OUTPATIENT VISIT, EST OFFICE/OUTPATIENT VISIT, EST OFFICE/OUTPATIENT VISIT, EST OFFICE/OUTPATIENT VISIT, EST PREV VISIT, EST, AGE 18-39 OFFICE/OUTPATIENT VISIT, EST OFFICE/OUTPATIENT VISIT, EST OFFICE/OUTPATIENT VISIT, EST OFFICE/OUTPATIENT VISIT, EST OFFICE/OUTPATIENT VISIT, EST OFFICE/OUTPATIENT VISIT, EST PREV VISIT, NEW, AGE 18-39 Advance Directives Directive Yes / No Effective Date File Name No Information Encounters Encounter Description Practice Location Reason(s) For Visit Diagnoses Date Provider Providers Copied on Encounter PREV VISIT, EST, AGE 18-39 [facility], [address] [place], [address], [place] tel:[phone] [facility] physical (chief complaint) Encounter for general adult medical exam w abnormal findingsAttention deficitGeneralized Anxiety DisorderMild intermittent asthma, uncomplicatedFatigu eRheumatoid arthritis [address], [place], [place], [address] , [place]. [phone] [facility], [address] [place], [address], [place] tel:[phone] [facility] No Information 4 Morris Rendon [address], [place], [place], [address] , [place]. tel:[phone] OFFICE/OUTPA TIENT VISIT, EST [facility], [address] [place], [address], [place] tel:[phone] [facility] Medicine ADD (chief complaint) fatigue1 (chief complaint) MCV (chief complaint) shoulder pain1 (chief complaint) Pain in left shoulderFatigueAtte ntion deficitOther abnormality of red blood cellsGeneralized Anxiety Disorder Sep-2 4 [address], [place], [place], [address] , [place]. tel:[phone] OFFICE/OUTPA TIENT VISIT, [facility], [address], [place], [place], [address], [place] [phone] [facility] shoulder pain1 (chief complaint) ADD (chief complaint) RA (chief complaint) shoulder pain1 (chief complaint) Attention deficitRheumatoid arthritisPain in left shoulder 4 [address], [place], [place], [address] , [place]. tel:[phone] OFFICE/OUTPA TIENT VISIT, [facility], [address], [place], [place], [address], [place] tel:[phone] [facility] ADD (chief complaint) anxiety1 (chief complaint) RA (chief complaint) UTI1 (chief complaint) Attention deficitGeneralized Anxiety DisorderRheumatoid arthritisDysuria Mar-0 [address], [place], [place], [address] , [place]. tel:[phone] OFFICE/OUTPA TIENT VISIT, [facility], [address], [place], [place], [address], [place] tel:[phone] [facility] asthma1 (chief complaint) ADD (chief complaint) Attention deficitMild intermittent asthma, uncomplicated 4 Morris Morteza. [address], [place], [place], [address] , [place]. tel:[phone] OFFICE/OUTPA TIENT VISIT, [facility], [address], [place], [place], [address], [place] tel:[phone] [facility] ADD (chief complaint) edema1 (chief complaint) EdemaAttention deficit 4 [address], [place], [place], [address] , [place]. tel:[phone] OFFICE/OUTPA TIENT VISIT, EST [facility], [address], [place], [place], [address], [place] tel:[phone] [facility] ADD (chief complaint) knee pain1 (chief complaint) Attention deficitPain in left knee 4 Caceres Morteza. [address], [place], [place], [address] , [place]. tel:[phone] OFFICE/OUTPA TIENT VISIT, EST [facility], [address], [place], [place], [address], [place] tel:[phone] [facility] cough1 (chief complaint) knee pain1 (chief complaint) Acute bronchitisPain in left knee 4 [address], [place], [place], [address] , [place]. [phone] PREV VISIT, EST, AGE 18-39 [facility], [address], [place], [place], [address], [place] tel:[phone] [facility] Medicine physical (chief complaint) Encounter for general adult medical exam w abnormal findingsAbnormal weight gainGeneralized Anxiety DisorderAttention deficit 4 [address], [place], [place], [address] , [place]. [phone] OFFICE/OUTPA TIENT VISIT, EST [facility], [address], [place], [place], [address], [place] tel:[phone] [facility] Medicine ADD (chief complaint) weight gain1 (chief complaint) Attention deficitAbnormal weight gain 3 [address], [place], [place], [address] , [place]. tel:[phone] OFFICE/OUTPA TIENT VISIT, EST [facility], [address], [place], [place], [address], [place] tel:[phone] [facility] ADD (chief complaint) anxiety1 (chief complaint) asthma1 (chief complaint) knee1 (chief complaint) Attention deficitPain in left kneeGeneralized Anxiety DisorderMild intermittent asthma, uncomplicated 3 [address], [place], [place], [address] , [place]. tel:[phone] OFFICE/OUTPA TIENT VISIT, [facility], [address], [place], [place], [address], [place] tel:[phone] [facility] ADD (chief complaint) knee pain1 (chief complaint) Pain in left kneeAttention deficit 3 [address], [place], [place], [address] , [place]. tel:[phone] OFFICE/OUTPA TIENT VISIT, [facility], [address], [place], [place], [address], [place] tel:[phone] [facility] anxiety1 (chief complaint) Generalized Anxiety Disorder 3 [address], [place], [place], [address] , [place]. tel:[phone] OFFICE/OUTPA TIENT VISIT, [facility], [address], [place], [place], [address], [place] tel:[phone] [facility] ADD (chief complaint) RA (chief complaint) Attention deficitRheumatoid arthritis 3 [address], [place], [place], [address] , [place]. tel:[phone] OFFICE/OUTPA TIENT VISIT, [facility], [address], [place], [place], [address], [place] tel:[phone] [facility] itchy rash1 (chief complaint) ADD (chief complaint) anxiety1 (chief complaint) pain1 (chief complaint) Attention deficitGeneralized Anxiety DisorderIrritant contact dermatitis, unspecified causeChronic pain syndrome 3 [address], [place], [place], [address] , [place]. tel:[phone] OFFICE/OUTPA TIENT VISIT, EST [facility], [address], [place], [place], [address], [place] tel:[phone] [facility] palpitatio n1 (chief complaint) Anxiety1 (chief complaint) arm weakness1 (chief complaint) ADD (chief complaint) Attention deficitGeneralized Anxiety DisorderOther chest painOther spondylosis, cervical region 3 [address], [place], [address] , [place]. tel:[phone] OFFICE/OUTPA TIENT VISIT, EST [facility], [address], [place], [address], [place] tel:[phone] [facility] ADD (chief complaint) anxiety1 (chief complaint) pelvic pain1 (chief complaint) Attention deficitLower abdominal painGeneralized Anxiety Disorder [address], [place], [place], [address] , [place]. tel:[phone] OFFICE/OUTPA TIENT VISIT, EST [facility], [address], [place], [place], [address], [place] tel:[phone] [facility] RA (chief complaint) ADD (chief complaint) pelvic pain1 (chief complaint) RA w/ rheumatoid factorAttention deficitLower abdominal pain Dec-2 3 [address], [place], [place], [address] , [place]. tel:[phone] OFFICE/OUTPA TIENT VISIT, EST [facility], [address] [place], [address], [place] tel:[phone] [facility] joint pain1 (chief complaint) Pain in jointRA w/ rheumatoid factor Cruz- 3 [address], [place], [place], [address] , [place]. tel:[phone] PREV VISIT, EST, AGE 18-39 [facility], [address], [place], [place], [address], [place] tel:[phone] [facility] Medicine physical (chief complaint) Encounter for general adult medical exam w abnormal findingsTachycardia Generalized Anxiety DisorderPain in jointMild intermittent asthma, uncomplicated 3 [address], [place], [place], [address] , [place]. tel:[phone] OFFICE/OUTPA TIENT VISIT, [facility], [address], [place], [place], [address], [place] [phone] [facility] anxiety1 (chief complaint) weakness1 (chief complaint) allergy1 (chief complaint) Generalized Anxiety DisorderMuscle weaknessOther asthma 2 [address], [place], [place], [address] , [place]. tel:[phone] OFFICE/OUTPA TIENT VISIT, [facility], [address], [place], [place], [address], [place] tel:[phone] [facility] anxiety1 (chief complaint) Primary insomniaPost-trauma tic stress disorder, chronic 2 [address], [place], [place], [address] , [place]. [phone] OFFICE/OUTPA TIENT VISIT, [facility], [address], [place], [place], [address], [place] tel:[phone] [facility] insomnia1 (chief complaint) anxiety1 (chief complaint) tachycardi a1 (chief complaint) Primary insomniaPost-trauma tic stress disorder, chronicTachycardiaA ttention deficitGeneralized Anxiety Disorder 2 [address], [place], [place], [address] , [place]. tel:[phone] OFFICE/OUTPA TIENT VISIT, [facility], [address], [place], [place], [address], [place] tel:[phone] [facility] abd pain1 (chief complaint) Abdominal painPelvic pain 2 [address], [place], [place], [address] , [place]. [phone] PREV VISIT, EST, AGE 18-39 [facility], [address], [place], [place], [address], [place] tel:[phone] [facility] physical (chief complaint) Encounter for general adult medical exam w abnormal findingsLeukocytosi sFlushingStriae atrophicaeNight sweatsFibromyalgiaA sthma 1 [address], [place], [place], [address] , [place]. [phone] OFFICE/OUTPA TIENT VISIT, EST [facility], [address], [place], [place], [address], [place] tel:[phone] [facility] stretch marks1 (chief complaint) hot flush1 (chief complaint) wBC (chief complaint) Striae atrophicaeAbnormal weight gainFlushingLeukocy tosisNight sweats 1 [address], [place], [place], [address] , [place]. tel:[phone] OFFICE/OUTPA TIENT VISIT, EST [facility], [address], [place], [place], [address], [place] tel:[phone] [facility] UTI1 (chief complaint) Urinary tract infection 1 [address], [place], [place], [address] , [place]. tel:[phone] OFFICE/OUTPA TIENT VISIT, EST [facility], [address], [place], [place], [address], [place] tel:[phone] [facility] plantar fascinitis 1 (chief complaint) Plantar fasciitisTarsal tunnel syndrome, right lower limb 1 Morris [address], [place], [place], [address] , [place]. [phone] OFFICE/OUTPA TIENT VISIT, [facility], [address], [place], [place], [address], [place] tel:[phone] [facility] hand pain1 (chief complaint) Hypermobility syndromePain in right wristMononeuropathy of right arm 1 [address], [place], [place], [address] , [place]. [phone] OFFICE/OUTPA TIENT VISIT, [facility], [address] [place], [address], [place] tel:[phone] [facility] hip pain1 (chief complaint) weight gain1 (chief complaint) fibromyalg ia1 (chief complaint) Pain in right hipAbnormal weight gainHypermobility syndromeFibromyalgi aLeukocytosis 1 [address], [place], [place], [address] , [place]. [phone] OFFICE/OUTPA TIENT VISIT, [facility], [address] [place], [address], [place] tel:[phone] [facility] wrist pain1 (chief complaint) Pain in right wristGanglion, right wrist 1 [address], [place], [place], [address] , [place]. [phone] OFFICE/OUTPA TIENT VISIT, [facility], [address], [place], [place], [address], [place] tel:[phone] [facility] wrist pain1 (chief complaint) fibromyalg ia1 (chief complaint) FibromyalgiaPain in right wristCTS of arm 1 Morris Rendon [address], [place], [place], [address] , [place]. [phone] OFFICE/OUTPA TIENT VISIT, [facility], [address] [place], [address], [place] tel:[phone] [facility] WBC (chief complaint) neuorpathy 1 (chief complaint) NeuropathyLeukocyto sis 0 [address], [place], [place], [address] , [place]. tel:[phone] PREV VISIT, EST, AGE 18-39 [facility], [address] [place], [address], [place] [phone] [facility] Physical (chief complaint) Encounter for general adult medical exam w abnormal findingsFibromyalgi aAlopeciaNeuropathy Headache, unspecified 0 [address], [place], [place], [address] , [place]. tel:[phone] OFFICE/OUTPA TIENT VISIT, [facility], [address] [place], [address], [place] tel:[phone] [facility] kidney cyst1 (chief complaint) fibromyalg ia1 (chief complaint) neck pain1 (chief complaint) sleep apnea1 (chief complaint) FibromyalgiaProtein uriaCyst of kidney, acquiredSleep apnea 0-202 0 [address], [place], [place], [address] , [place]. tel:[phone] OFFICE/OUTPA TIENT VISIT, EST [facility], [address] [place], [address], [place] tel:[phone] [facility] sleep apnea1 (chief complaint) proteinuri a1 (chief complaint) kidney cyst1 (chief complaint) libido1 (chief complaint) Sleep apneaCyst of kidney, acquiredFibromyalgi aProteinuriaDecreas ed libido -202 0 [address], [place], [place], [address] , [place]. tel:[phone] OFFICE/OUTPA TIENT VISIT, [facility], [address] [place], [address], [place] tel:[phone] [facility] UTI1 (chief complaint) Urinary tract infection 0 [address], [place], [place], [address] , [place]. tel:[phone] OFFICE/OUTPA TIENT VISIT, [facility], [address], [place], [place], [address], [place] tel:[phone] [facility] asthma1 (chief complaint) ovary1 (chief complaint) sleep apnea1 (chief complaint) Sleep apneaAsthmaAcquired atrophy of right ovary 0 [address], [place], [place], [address] , [place]. tel:[phone] OFFICE/OUTPA TIENT VISIT, [facility], [address], [place], [place], [address], [place] tel:[phone] [facility] renal cyst1 (chief complaint) Acquired atrophy of right ovaryCyst of kidney, acquired 0 [address], [place], [place], [address] , [place]. tel:[phone] Referring Provider: Morteza Caceres [address], [place], [place], [address]. tel:[phone] OFFICE/OUTPA TIENT VISIT, [facility], [address], [place], [place], [address], [place] tel:[phone] [facility] sleep apnea1 (chief complaint) wrist pain1 (chief complaint) knee pain1 (chief complaint) Sleep apneaRadial styloid tenosynovitis [de Quervain]Pain in right knee 0 [address], [place], [place], [address] , [place]. tel:[phone] Referring Provider: Nikia Martí[address], [place], [place], [address]. tel:[phone] OFFICE/OUTPA TIENT VISIT, [facility], [address], [place], [place], [address], [place] tel:[phone] [facility] foot pain1 (chief complaint) sleep apnea1 (chief complaint) Plantar fascial fibromatosisSleep apnea Madi- 0 [address], [place], [place], [address] , [place]. tel:[phone] Referring Provider: Morteza Caceres, [address], [place], [place], [address]. tel:[phone] OFFICE/OUTPA TIENT VISIT, [facility], [address], [place], [place], [address], [place] tel:[phone] [facility] right hand pain1 (chief complaint) fibromyalg ia1 (chief complaint) pelvic floor1 (chief complaint) Paresthesia of skinNeuropathyRadia l styloid tenosynovitis [de Quervain]Fibromyalg iaSegmental and somatic dysfunction of pelvic region 0 [address], [place], [place], [address] , [place]. [phone] Referring Provider: Nikia Martínez [address], [place], [place], [address]. tel:[phone] OFFICE/OUTPA TIENT VISIT, [facility], [address], [place], [place], [address], [place] tel:[phone] [facility] fatigue1 (chief complaint) facial rash1 (chief complaint) palpitatio n (chief complaint) bowel1 (chief complaint) Sleep apneaRashAcute embolism of other specified veinPalpitationsCha nge in bowel habit Dec- 0 [address], [place], [place], [address] , [place]. [phone] Referring Provider: Nikia Martínez [address], [place], [place], [address]. tel:[phone] OFFICE/OUTPA TIENT VISIT, [facility], [address], [place], [place], [address], [place] tel:[phone] [facility] fatigue1 (chief complaint) palpitatio n1 (chief complaint) fibromyalg ia1 (chief complaint) facial flushing1 (chief complaint) HTN (chief complaint) FlushingFibromyalgi aFatigueTachycardia Essential (primary) hypertension Nov-0 0 [address], [place], [place], [address] , [place]. tel:[phone] Referring Provider: Nikia Martínez [facility] A, [place], [place], [address]. tel:[phone] OFFICE/OUTPA TIENT VISIT, EST [facility], [address], [place], [place], [address], [place] tel:[phone] [facility] HIVE1 (chief complaint) renal1 (chief complaint) tachycardi a1 (chief complaint) fibromyalg ia1 (chief complaint) fatigue1 (chief complaint) FibromyalgiaTachyca rdiaRashRenal diseaseLeukocytosis Fatigue Fe-0 0 [address], [place], [place], [address] , [place]. tel:[phone] Referring Provider: Nikia Martí[address], [place], [place], [address]. tel:[phone] PREV VISIT, EST, AGE 18-39 [facility], [address], [place], [place], [address], [place] tel:[phone] [facility] Medicine physical (chief complaint) Encounter for general adult medical exam w abnormal findingsAsthmaFibro myalgiaRenal diseaseTachycardiaF emale pelvic infection 201 9 Morris [address], [place], [place], [address] , [place]. tel:[phone] Referring Provider: Nikia Martínez [address], [place], [place], [address]. tel:[phone] OFFICE/OUTPA TIENT VISIT, EST [facility], [address], [place], [place], [address], [place] tel:[phone] [facility] asthma1 (chief complaint) back pain1 (chief complaint) FibromyalgiaAsthma 9 [address], [place], [place], [address] , [place]. tel:[phone] Referring Provider: Nikia Martínez [address], [place], [place], [address]. tel:[phone] OFFICE/OUTPA TIENT VISIT, [facility], [address], [place], [place], [address], [place] tel:[phone] [facility] lumbago1 (chief complaint) fibromyalg ia1 (chief complaint) asthma1 (chief complaint) pelvic floor1 (chief complaint) FibromyalgiaLumbago Urinary urgencyAsthma 9 [address], [place], [place], [address] , [place]. tel:[phone] Referring Provider: Nikia Martínez [address], [place], [place], [address]. tel:[phone] OFFICE/OUTPA TIENT VISIT, [facility], [address], [place], [place], [address], [place] tel:[phone] [facility] back pain1 (chief complaint) polycythem ia1 (chief complaint) cystitis1 (chief complaint) Interstitial cystitis (chronic) without hematuriaFibromyalg iaSecondary polycythemiaLumbago 9 [address], [place], [place], [address] , [place]. tel:[phone] Referring Provider: Nikai Martínez [address], [place], [place], [address]. tel:[phone] OFFICE/OUTPA TIENT VISIT, [facility], [address], [place], [place], [address], [place] tel:[phone] [facility] UTI1 (chief complaint) fibromyalg ia1 (chief complaint) Urinary tract infectionFibromyalg ia 9 [address], [place], [place], [address] , [place]. tel:[phone] Referring Provider: Nikia Martínez [address], [place], [place], [address]. tel:[phone] PREV VISIT, EST, AGE 18-39 [facility], [address], [place], [place], [address], [place] tel:[phone] [facility] PHysical (chief complaint) Encntr for general adult medical exam w/o abnormal findings 9 Morris R[address]on [address], [place], [place], [address] , [place]. tel:[phone] Referring Provider: Nikia Martínez [address], [place], [place], [address]. tel:[phone] OFFICE/OUTPA TIENT VISIT, EST [facility], [address] [address], [place], [place], [address], [place] tel:[phone] [facility] fibromyalg ia1 (chief complaint) back pain1 (chief complaint) sore throat1 (chief complaint) sleep1 (chief complaint) Lumbago with sciatica, left sideFibromyalgiaPha ryngitisSleep disorder [address], [place], [place], [address] , [place]. tel: [phone] Referring Provider: Nikia Mart[address], [place], [place], [address]. tel:[phone] OFFICE/OUTPA TIENT VISIT, EST [facility], [address], [place], [place], [address], [place] tel:[phone] [facility] back pain1 (chief complaint) fibromyalg ia1 (chief complaint) Lumbago with sciatica, left sideFibromyalgia [address], [address], [place], [place], [address] , [place]. tel:[phone] Referring Provider: Nikia Mart[address], [place], [place], [address]. tel:[phone] OFFICE/OUTPA TIENT VISIT, [facility], [address], [place], [place], [address], [place] tel:[phone] [facility] fatigue1 (chief complaint) pain1 (chief complaint) depression 1 (chief complaint) FibromyalgiaTension headacheDepressionP ain in unspecified joint 2 [address], [address], [place], [place], [address] , [place]. tel:[phone] Referring Provider: Nikia Martínez [address], [place], [place], [address]. tel:[phone] OFFICE/OUTPA TIENT VISIT, [facility], [address], [place], [place], [address], [place] tel:[phone] [facility] knee pain1 (chief complaint) asthma1 (chief complaint) palpitatio n1 (chief complaint) Pain in unspecified jointAsthmaPalpitat ions [address], [address], [place], [place], [address] , [place]. tel:[phone] Referring Provider: Nik[address] Mart[address], [place], [place], [address]. tel:[phone] OFFICE/OUTPA TIENT VISIT, [facility], [address], [place], [place], [address], [place] tel:[phone] [facility] polycythem ia1 (chief complaint) sleep (chief complaint) UTi1 (chief complaint) weight gain1 (chief complaint) Secondary polycythemiaHerpes simplex infectionUrinary tract infectionAbnormal weight gain [address], [address], [place], [place], [address] , [place]. tel:[phone] Referring Provider: [address] Mart[address], [place], [place], [address]. tel:[phone] OFFICE/OUTPA TIENT VISIT, [facility], [address], [place], [place], [address], [place] tel:[phone] [facility] polycyther mia1 (chief complaint) vitami D (chief complaint) cardiomyop athy1 (chief complaint) back pain1 (chief complaint) InsomniaSecondary polycythemiaLumbago Vitamin D deficiency, unspecified [address], [place], [place], [address] , [place]. tel:[phone] Referring Provider: Nikia Martínez [address] [facility] [address], [place], [place], [address]. tel:[phone] PREV VISIT, NEW, AGE 18-39 [facility], [address], [place], [place], [address], [place] tel:[phone] [facility] PHysical (chief complaint) Encntr for general adult medical exam w/o abnormal findings [address], [facility] [address], [place], [place], [address] , [place]. tel:[phone] Referring Provider: Nikia Martínez [address] [facility] [address], [place], [place], [address]. tel:[phone] Family History Family Member Type Diagnosis Age At Onset Mother Problem (finding) RA Mother Problem (finding) Cardiomyopathy Father Problem (finding) Coronary artery disease (Cause Of ) 55 Payers Payer name Insurance type Covered republican ID Authoriza tion(s) No Information Social History Type Description Quantity Date Captured Comments Alcohol Use Details No Caffeine Use Details Unknown Tobacco Use Status Never smoked tobacco 2024 Smoking Status Never smoker Sex Female Vital Signs Date / Time: Height Weight BMI Pulse Rate Blood Pressure Temperature Respiratory Rate Body Surface Area Head Circumference BMI percentile Pulse Ox Inhaled Ox 12:50 PM 64.00 in 151.80 lbs 26.0 6 kg/m eter (2) 85 /min 110/72 mm[Hg] 97.5 F 16 /min Chief Complaint And Reason For Visit From encounter dated '10/05/2024 12:16'. physical (chief complaint). Description: Pt needs annual physical pt has chronic anxiety and depression Pt takes zoloft and wellbutrin and doing ok Pt denies any suicidal or homicidal thought Pt denies any crying spells. Pt has ADD. Pt doing ok with vyvanse. Pt has occasional motion sickness. Pt has to get into elevator a lot while at work and sometimes it causes some motion sickness. Pt did not do sleep study due to cost. Pt has allergy and she takes singulair and doing ok. Pt has history of high MCV, which resolved on subsequent lab Plan Of Treatment Date Type Action Status Goal Special diet education compl eted Referral Ordered: Rheumatology (related to Rheumatoid arthritis) ordered Referral Ordered: Rheumatology (related to Rheumatoid arthritis) ordered Referral Ordered: Referrals: Rheumatology. Evaluate and treat ordered Referral Ordered: Allergy and Immunology (related to Irritant contact dermatitis, unspecified cause) ordered Referral Ordered: Referrals: Allergy and Immunology. Evaluate and treat ordered Referral Ordered: CERVICAL SPINE XRAY 2 OR 3 VIEWS ordered Referral Referred To: Darby Bangura [facility] [address]
[address] [place], [place], [address] Ordered: Referrals: Darby Bangura MD. Evaluate and treat ordered Referral Ordered: US SOFT TISSUE CHEST ordered Referral Referred To: Jose F Gerardo MD [address] [facility]
[address] [place], [place], [address] Ordered: Referrals: Jose F Gerardo MD. Evaluate and treat ordered Referral Ordered: MRI BRAIN W/O & W/DYE ordered Referral Ordered: Otolaryngology (related to Sleep apnea) ordered Referral Ordered: Referrals: Otolaryngology. Evaluate and treat ordered Referral Ordered: CHEST X-RAY PA/LAT TWO-VIEWS ordered Referral Ordered: US, PELVIC (NONOBSTETRIC); ordered Referral Ordered: US KIDNEY ordered Referral Ordered: Physical Therapy (related to Radial styloid tenosynovitis [de Quervain]) ordered Referral Ordered: LORRAINE VALLEJO -Podiatric Medicine & Surgery Service Providers : Hand Mica Plate Layer (related to Plantar fascial fibromatosis) ordered Referral Referred To: LORRAINE VALLEJO [address] [place] [address],[address] [place], [place], [phone] Ordered: Referrals: Podiatric Medicine & Surgery Service Providers : Hand Mica Plate Layer. LORRAINE VALLEJO. Evaluate and treat ordered Referral Ordered: SENSE NERVE CONDUCTION TEST ordered Referral Ordered: Raciel Weber -Allopathic & Osteopathic Physicians : Internal Medicine : Rheumatology (related to Rash) ordered Referral Referred To: Raciel Weber [address] [facility]
[address] [place], [address] Ordered: Referrals: Allopathic & Osteopathic Physicians : Internal Medicine : Rheumatology. Raciel Weber. Evaluate and treat ordered Referral Ordered: Pain Medicine (related to Lumbago) ordered Referral Ordered: Referrals: Pain Medicine. Evaluate and treat ordered Referral Ordered: Physical Therapy (related to Lumbago) ordered Referral Ordered: MANDIBLE X-RAY 4+ VIEWS ordered Referral Ordered: Physical Therapy (related to Lumbago) ordered Referral Ordered: Hematology (related to Secondary polycythemia) ordered Referral Ordered: LUMBAR XRAY AP AND LAT ONLY ordered Referral Ordered: SLEEP STUDY, ATTENDED ordered Referral Referred To: Physical Therapy Ordered: Referrals: Physical Therapy. Evaluate and treat ordered Referral Ordered: Referrals: Hematology. Evaluate and treat ordered Referral Ordered: DOPPLER ECHO EXAM, HEART ordered History Of Present Illness Encounter Date Complaint History Of Prese nt Illness physical Pt needs annual physical pt has chronic anxiety and depression Pt takes zoloft and wellbutrin and doing ok Pt denies any suicidal or homicidal thought Pt denies any crying spells. Pt has ADD. Pt doing ok with vyvanse. Pt has occasional motion sickness. Pt has to get into elevator a lot while at work and sometimes it causes some motion sickness. Pt did not do sleep study due to cost. Pt has allergy and she takes singulair and doing ok. Pt has history of high MCV, which resolved on subsequent lab shoulder pain1 Pt c/o left post erior upper shoulder pain and left side nec pain for a while Pt denies any injury Pt notices mild radiculopathy to left elbow sometimes Pt saw bone specialist and she will start PT MCV Pt has large MCV Pt does not drink alcohol. fatigue1 Pt has chronic f atigue .Pt has history of sleep apnea but she could not tolerate cpap. ADD Pt has ADD Pt ta kes Vyvanse PRN. and doing ok Pt needs Vyvanse refilled. ADD Patient has ADD. Patient has inattentive type. Patient feels scatterbrained. Patient feel poor focus and difficulty completing tasks. Patient states that Vyvanse is helping with symptoms. Patient feels more focused. Pt feels more energy. Patient denies any headache, dry mouth, headache, chest pain. Patient denies any appetite loss. RA Pt has RA and fi bromyalgia Pt has not seen rheumatology for a while. Pt has [facility] a while and she wants to see a different television operator for 2nd opinion Pt does have joint pain and some back pain. Pt states that her joint pain is flaring up now. shoulder pain1 Pt c/o left ante rior shoulder pain for several weeks Pt denies any injury ,Pt denies any swelling ,redness or warmth. Pt notices sharp pain when she tries to raise left shoulder to reach things. shoulder pain1 anxiety1 Pt has chronic a nxiety and depression Pt denies any suicidal or homicidal thought Pt denies any crying spells pt states that she has not had wellbutrin for a while and she was by pharmacy that she has no refills left. RA Pt has RA and fi bromyalgia Pt has not seen rheumatology for a while. Pt has been out of [facility] for a while and she wants to see a different television operator for 2nd opinion Pt does have joint pain and some back pain. ADD Patient has ADD. Patient has inattentive type. Patient feels scatterbrained. Patient feel poor focus and difficulty completing tasks. Patient states that vyvanse is helping with symptoms. Patient feels more focused. Pt feels more energy. Patient denies any headache, dry mouth, headache, chest pain. Patient denies any appetite loss. UTI1 Pt c/o acute ons et of low pelvic pressure and some urinary burning for several days Pt denies any frequency or urgency Pt denies any fever, chill. or flank pain. ADD Patient has ADD. Patient has inattentive type. Patient feels scatterbrained. Patient feel poor focus and difficulty completing tasks. Patient states that vyvanse is helping with symptoms. Patient feels more focused. Pt feels more energy. Patient denies any headache, dry mouth, headache, chest pain. Patient denies any appetite loss. asthma1 Pt has mild asth ma Pt rarely needs to use albuterol. Pt has not been using daily inhaler for long time Pt only feels sob during allergy season .Pt wants albuterol refilled. Pt currently uses albuterol 1-2 per month Pt denies any wheezing Pt denies any cough or hemoptysis. edema1 pt notices mild bilateral ankle swelling, worse on left side for the past several weeks Pt states that the swelling is worse at night and better in the morning Pt denies any pain or sob Pt recently had left knee surgery and she has been walking on crutch for a while. Pt denies any calf pain or chest pain ADD Patient has ADD. Patient has inattentive type. Patient feels scatterbrained. Patient feel poor focus and difficulty completing tasks. Patient states that Vyvanse is helping with symptoms. Patient feels more focused. Pt feels more energy. Patient denies any headache, dry mouth, headache, chest pain. Patient denies any appetite loss. knee pain1 Pt c/o mild left knee pain post op. Pt denies any redness and warmth .Pt is wearing left knee immobilizer and ambulate with crutch with non weight bearing left leg. Pt had meniscus surgery left knee 2 weeks ago. ADD Patient has ADD. Patient has inattentive type. Patient feels scatterbrained. Patient feel poor focus and difficulty completing tasks. Patient states that Vyvanse is helping with symptoms. Patient feels more focused. Pt feels more energy. Patient denies any headache, dry mouth, headache, chest pain. Patient denies any appetite loss. cough1 pt c/o productiv e cough with green phlegm x 3 days. Pt denies any sob Pt denies any fever Pt denies any chest pain. Pt denies any sore throat or sinus symptoms Pt denies any ear pain. Pt denies any sob Pt denies any GI symptoms. Pt denies any vomiting or diarrhea. Pt is vaccinated for COVID and influenza . Pt notices mild wheezing when she takes deep breath .Pt denies any sick contact. knee pain1 Pt is s/p left m eniscus surgery 3 days ago and she is recovering from surgery at home. Pt c/o post up left knee pain Pt received 12 percocet from surgeon and she only has 5 pills left Pt denies any knee warmth or drainage. Pt denies any fever or calf pain physical Pt needs annual physical. Pt has chronic anxiety and depression Pt takes zoloft and wellbutrin and doing ok Pt has more anxiety lately. She will have hemorrhoid surgery soon and she is very anxious about the surgery. Pt wants to try short term xanax PRn. Pt has been gaining weight. Pt also has ADD Pt doing ok with adderall. Pt has RA and she sees rheumatology and she is on simponi aria. weight gain1 Pt has been gain ing weight. Pt has not been physically active pt has been eating poorly . ADD Patient has ADD. Patient has inattentive type. Patient feels scatterbrained. Patient feel poor focus and difficulty completing tasks. Patient states that Adderall is helping with symptoms. Patient feels more focused. Pt feels more energy. Patient denies any headache, dry mouth, headache, chest pain. Patient denies any appetite loss. knee1 Pt has persist l eft knee pain with some scab. Pt had negative knee x ray Pt just finished 10 days of keflex. Pt notices some scab and poor healing pt has been applying antibiotics ointment on the area Pt denies any swelling Pt is able to bear weight on left knee ADD Patient has ADD. Patient has inattentive type. Patient feels scatterbrained. Patient feel poor focus and difficulty completing tasks. Patient states that Adderall is helping with symptoms. Patient feels more focused. Pt feels more energy. Patient denies any headache, dry mouth, headache, chest pain. Patient denies any appetite loss. anxiety Pt has chronic a nxiety and depression pt denies any suicidal or homicidal thought pt denies any crying spells .Pt takes zoloft and wellbutrin and doing ok. Pt needs Wellbutrin refilled asthma Pt has asthma an d allergy and she takes singulair and anti-histamine and doing ok Pt denies any hemoptysis, cough. knee pain1 Pt fell off [employer] ter and landed on left knee 24 hours ago. Pt notices left knee pain, with swelling and bruising Pt states that the knee pain is worse with any type of movement or weight bearing ,Pt went to Er today and she had left knee x ray which were negative ,pt was krysten wrapped and sent home and she was told to take NSAID OTC. Pt is able to limp around but not able to weight bearing due to pain ADD Patient has ADD. Patient has inattentive type. Patient feels scatterbrained. Patient feel poor focus and difficulty completing tasks. Patient states that Adderall is helping with symptoms. Patient feels more focused. Pt feels more energy. Patient denies any headache, dry mouth, headache, chest pain. Patient denies any appetite loss. anxiety1 Pt has chronic a nxiety and depression Pt takes zoloft and wellbutrin and doing well. Pt denies any suicidal or homicidal thought Pt denies any crying spells. Pt needs zoloft refilled Pt denies any side effects from zoloft RA Pt has RA Pt is off methotrexate Pt is on simponi aria .Pt sees rheumatology . Pt is off methotrexate and folic ADD Patient has ADD. Patient has inattentive type. Patient feels scatterbrained. Patient feel poor focus and difficulty completing tasks. Patient states that Adderall is helping with symptoms. Patient feels more focused. Pt feels more energy. Patient denies any headache, dry mouth, headache, chest pain. Patient denies any appetite loss. pain1 Pt has chronic n kev and mid and low back pain pt sees pain management. Pt had x ray of neck and T spine done which was essentially benign with mild scoliosis and spondylos. anxiety1 Pt has chronic a nxiety and depression Pt no longer sees psychiatrist .Pt is still doing counseling Pt denies any suicidal or homicidal thought Pt denies any crying spells Pt takes wellbutrin and also zoloft and doing ok Pt needs wellbutrin refilled. ADD Patient has ADD. Patient has inattentive type. Patient feels scatterbrained. Patient feel poor focus and difficulty completing tasks. Patient states that Adderall is helping with symptoms. Patient feels more focused. Pt feels more energy. Patient denies any headache, dry mouth, headache, chest pain. Patient denies any appetite loss. Pt denies any insomnia itchy rash1 pt c/o diffuse i ntermittent itching without any rash all over body for the past 2-3 weeks. Pt denies any visible rash pt denies any wheezing, dysphagia or sob. Pt states that it occurs randomly. She went to urgent care and she was given steroid IM shot and also oral steroid. Pt was told that she has some type of allergic reaction. Pt is not sure what she is allergic to. Pt wants allergy testing. Pt denies any current symptoms palpitation1 Pt has intermitt ent palpitation but only during intercourse Pt is seeing cardiology and she had negative holter, cardiac echo and also cardiac stress test. Pt states that she was started on diltiazem for benign tachycardia and she has been on above for long time .Pt states that it did help her from getting chest pain and palpitation during intercourse but she notices recurrent left side chest pain with radiation to left arm during intercourse during last several weeks. Pt denies any sob or syncope Anxiety1 pt has chronic a nxiety and depression Pt takes zoloft and she is doing better Pt denies any suicidal or homicidal thought Pt denies any crying spells. Pt states that zoloft works better than lexapro Pt also states that she no longer has any sexual side effects with zoloft arm weakness1 Pt c/o chronic b ilateral upper arm weakness, especially when she tries to wash her hair or cooking in the kitchen. Pt states that the her upper arm feels weaker and more painful during the last several months pt also has chronic neck pain and middle back pain ,Pt states that she has above issue all her life but seems getting worse Pt also c/o bilateral arm numbness and tingling sometimes Pt is seeing pain management and also neusorugery but they are all working on her low back but has been ignoring upper arm issue . ADD Pt has ADD .Pt d oes not think concerta is helping her symptoms anxiety1 Pt has chronic a nxiety and depression Pt takes wellbutrin and lexapro and her mood is ok but she has been having difficulty achieving orgasm during intercourse since starting lexapro. Pt denies any suicidal or homicidal thought ,Pt denies any crying spells pelvic pain1 Pt states that a bdominal pain resolved Pt did not do UA ADD Pt has ADD, Pt s tarted concerta last month and she notices improvement of her symptoms but she feels that the dose is not strong enough. Pt denies any side effects RA Pt has diffuse j oint pain and fibromyalgia. Pt has positive RA factor Pt saw rheumatology who did some lab and told her she may have RA and will start her on methotrexate. Pt has not been taking mobic and she is doing ok ADD Pt has ADD, inat tentive type. her psychiatrist started her on adderall last year but caused some insomnia Pt is studying for exam now and she feels poorly focused and she wants to try adderall again. pelvic pain1 Pt c/o left lowe r pelvic pain for several days .Pt actually had right lower quadrant pain 3 months ago and she went to [facility] ER and had CT done which showed diverticulosis only Pt has not had any pain until two days ago. Pt c/o acute onset of sharp pain left lower quadrant area. Pt only notices pain when bladder is full. Pt denies any diarrhea, constipation, blood in stool pt notices some urinary urgency, and feeling of incomplete emptying pt denies any dysuria, Pt denies any fever, chill, flank pain. Pt states that she has 4/10 pain when bladder is full. Pt has been drinking more caffeine recently. Pt denies any appetite loss or right side abd pain joint pain1 Pt has diffuse j oint pain includes bilateral shoulder, elbow, knee, ankle. Pt denies any rash Pt had lab done which showed borderline elevation of RA. Pt was treated for fibromyalgia in the past . physical Pt needs annual physical Pt has chronic anxiety and depression Pt takes lexapro and wellbutrin and she is doing ok Pt denies any suicidal or homicidal thought Pt denies any crying spells. Pt has allergy and she takes singulair. Pt has chronic low back pain Pt sees pain specialist and she also has diffuse joint pain including knee, hip and wrist and all over including shoulder and elbow. pt denies any neuropathy. Pt has asthma and allergy. Pt takes singulair and she rarely needs to use albuterol. Pt denies any hemoptysis, worsening sob or cough anxiety1 pt has anxiety a nd depression. Pt has PTSD symptoms. pt states that lexapro really helps her mood and PTSD symptoms but she noticed some sexually side effects including numb feeling. Pt has hard time achieving climax since on lexapro. Pt has good libido. Pt denies any other side effects. weakness1 Pt states that s he feels bilateral arm weakness and easily fatigue all her life. Pt denies any muscle atrophy. Pt denies any neck pain Pt denies any eyelid droop. Pt states that both arm feels very easily tired with simple activities allergy1 Pt has sinus all ergy and she takes singular and doing ok Pt needs it refilled anxiety1 Pt has chronic a nxiety and depression. Pt has been taking wellbutrin XL 150 mg in AM for over one year by psychiatrist .Pt denies any suicidal or homicidal thought .pt denies any crying spells. Pt has PTSD and frequent panic attacks. Pt suffered sepsis and medical trauma and she keeps having nightmares about it which causes her to have insomnia. Pt could not tolerate prazosin which made her drowsy the next day. Pt stopped prazosin after two days of doses. Pt has not started lexapro yet Pt alexis any suicidal or homicidal thought. Pt denies any crying spells. Pt states that her insomnia resolved. anxiety1 Pt has chronic a nxiety and depression. Pt has been taking wellbutrin XL 150 mg in AM for over one year by psychiatrist .Pt denies any suicidal or homicidal thought .pt denies any crying spells. Pt has PTSD and frequent panic attacks. Pt suffered sepsis and medical trauma and she keeps having nightmares about it which causes her to have insomnia. Pt has mild loss of appetite as well since taking adderall insomnia1 Pt has been havi ng insomnia for two weeks .pt tossed and turn for two hours before she may fall asleep. Pt started adderall xR about one month ago for ADD per psychiatry. Pt states that she stopped adderall XR about one week ago and she still has insomnia. pt denies any snoring. tachycardia1 Pt has benign ta chycardia. Pt sees cardiology Pt is on diltiazem and doing ok Pt denies any chest pain or palpitation abd pain1 Pt c/o intermitt ent left lower abdominal pain for 3-4 weeks, which got better for a while but returned again since last week. Pt denies any urinary symptoms Pt did go to urgent care twice and the first time was negative and 2nd time she did not get UA test. Pt denies any injury Pt c/o dull and sharp pain. Pt denies any fever, chill Pt denies any flank pain. Pt denies any nausea, vomiting . Pt denies any vaginal discharge. Pt states that the pain comes and goes and worse after sitting for a while. Pt denies any acute pain now .Pt states that she notices worsening pain when she urinate to about 6. Pt denies any burning, frequency or urgency .Pt did have partial hysterectomy. Pt denies any flank pain Pt did have woodrow with LIGHTER but was canceled. Pt denies any trigger factor. Pt denies any constipation or diarrhea .Pt denies any inguinal lymph. Pt denies any flank pain Pt denies any blood in stool physical Pt needs annual physical. Pt has fibromyalgia. Pt takes amitriptyline and doing ok. Pt also sees pain management for low back pain due to DDD. pt denies any sciatica or loss of bowel or bladder control Pt denies any saddle area paresthesia. Pt has allergy and asthma she takes singulair and doing ok Pt denies any wheezing or sob. Pt c/o abdominal and inner thigh stretch huynh for several months Pt denies any buffalo hump. Pt denies any polyuria, polydipsia. Pt also had history of mild leukocytosis, ,which resolved now. Pt denies any fever or recurrent illness. Pt just had lab done which was all normal. Pt states that her night sweat and hot flushing symptoms are improving Pt denies any weight loss, recent travel, fever, cough, etc .Pt denies any other complaints stretch marks1 Pt notices stret ch huynh popping around abdomen and inner thigh and breast for 6 months pt denies any itching and pain Pt did gain some weight during the last several years. Pt notices that the huynh keep popping out . Pt does have EDS? hot flush1 Pt c/o hot flash es and feeling hot and cold frequently during last year. Pt had partial hysterectomy. Pt had one ovary removed. Pt also notices night sweat as well pt denies any coughing, fever ,recent travel, weight loss, or sick contact. wBC Pt has history o f mildly elevated wBc Pt denies any fever, chill, or illness. UTI1 pt c/o dysuria, urinary urgency and frequency and pelvic pressure for 3 days. Pt denies any fever, chill, flank pain. plantar fascinitis1 Pt has right plantar fasciitis and tarsal tunnel syndrome. Pt will have surgery by podiatry next week under general anesthesia and she was told that she needs a clearance for her to have anesthesia per patient. Pt states that hospital contacted her and told her to get a note from me about that. Pt is not sure what they need. Pt never had any adverse reaction with surgery under general anesthesia Pt does not have any cardiac or respiratory issue. Pt denies any chest pain or headache or sob. hand pain1 Pt c/o chronic r ight wrist pain and she has two cystic nodule around the base of right thumb and wrist area .Pt also c/o intermittent right thumb and right ring finger numbness and tingling and right hand weakness. Pt had negative NCS. Pt states that her right wrist is hyper mobile. Pt did see television operator and also rubber tubing backer about mirta danlos syndrome which were negative also Pt states that right wrist pain is worse and she went to urgent care and was told to check for RA. which was all negative by rheumatology check and myself during last two years. hip pain1 Pt was having se x last Thursday and she accidently injured her right hip. Pt thinks that she dislocated her right hip which she subsequently moved back into position on her own. Pt denies any neuropathy symptoms. Pt denies any swelling, redness or warmth .pt is able to walk and weight bear ok. Pt has normal ROm right hip. Pt went to er and she had normal right hip x ray. Pt is concerned about hypermobility of the all her joint. pt denies any radiculopathy from right hip. Pt states that she heard a pop right hip during sex but subsequently moved back on her own during sex per pt. weight gain1 Pt has been gain ing weight. Pt denies any change of diet and activity level. Pt thinks that it is due to lyrica. fibromyalgia1 Pt has fibromyal fabricio. Pt sees pain management for back injection Pt denies any neuropathy symptoms. Pt denies any leg numbness or tingling Pt wants to wean off lyrica. Pt still taking amitriptyline 10 mg nightly and her pain is doing ok. wrist pain1 Pt c/o right wri st pain and right hand weakness and she notices a slightly painful cystic lesion in the middle of the wrist for one week. Pt feels pain radiating to her right thumb. Pt denies any numbness and tingling around fingers. Pt denies any cold hand or finger .Pt does feel weakness around her right hand. Pt has woodrow with hand specialist in 8 days. Pt denies any redness or warmth fibromyalgia1 pt has fibromyal fabricio. Pt has back and neck pain Pt has some joint pain Pt sees pain management and receive injections Pt is on lyrica and amitriptyline currently Pt states that her pain seems getting worse. wrist pain1 pt c/o painful u lnar side of right wrist with swelling and redness x one week. Pt states that it seems that the wrist has been swelling at night. Pt denies any redness and swelling during the day but she has constant dull ache ulnar side of right wrist throughout the day. Pt denies any elbow, forearm or finger numbness or tingling or pain Pt denies any finger discoloration .Pt did have mild right carpal tunnel symptoms with negative NCS last year Pt denies any injury. pt does notices weakness of right hand WBC Pt has mildly hi gh WBC Pt denies any fever or illness. neuorpathy1 pt has vague salina ropathy symptoms and headache. Pt has fibromyalgia. Pt had MRi of brain done which was normal .Pt states that lyrica is really helping her symptoms and she had not had any headache and her neuropathy symptoms also improving. Physical pt needs annual physical Pt has fibromyalgia Pt has chronic neck and back pain Pt states that at she notices upper shoulder pain, which is worse .Pt also feels that her upper arm and shoulder muscle feels weak. Pt states that she imtiaz and she feels a lot of muscle pain on upper shoulder area afterward Pt also notices numbness and tingling feeling both hand and feet for several months Pt denies any loss of bladder control. Pt denies any sciatica or any radiculopathy .Pt is seeing pain management for injections for back and neck also .Pt never tried lyrica .Pt was prescribed for lyrica but she never tried it .Pt failed neurontin Pt also notices hair loss without bald spots Pt notices mild headache randomly here and there without any pattern Pt denies any head injury or waking up at night with headache . Pt also notices hair loss recently during shower. sleep apnea1 Pt has sleep date pitter ea Pt had in lab titration study done and is awaiting for CPAP neck pain1 Pt c/o left side neck pain involving left upper shoulder area for several months Pt denies any radiculopathy. Pt is seeing pain management. Pt failed neurontin and lyrica. Pt was referred to PT by pain management .Pt was told by PT that she has some muscle spasm and muscle node during PT. Pt denies any neck injury. Pt has not received any injection to neck area yet or had any imaging study. Pt states that left side of neck and upper shoulder is very painful and worse with movement. fibromyalgia1 Pt has fibromyal fabricio. Pt doing ok with amitriptyline 25 mg nightly. Pt states that her libido improved kidney cyst1 Pt has left uppe r pole renal cyst, Pt had renal ultrasound done which showed benign finding. Pt denies any flank pain. Pt has not done urine albumin yet sleep apnea1 Pt has sleep date pitter ea. Pt is seeing ENt/sleep and she had CPAP study done Pt had to return her APAP due to noncompliance and ENT is trying to get her a CPAP. Pt still feels fatigue proteinuria1 Pt has mild prot einuria on recent UA. libido1 Pt has fibromyal fabricio. Pt also has pelvic floor dysfunction Pt is on amitriptyline and urology told her to go higher dose to 75 mg amitriptyline daily. However ,pt notices decrease sex drive with higher dose . kidney cyst1 Pt has a benign appearing right kidney cyst on recent CT scan pt denies any abd pain. Pt has not done renal ultrasound yet UTI1 Pt c/o dysuria, urinary urgency and frequency and low back pressure x 1 week. Pt denies any pelvic pain or any bleeding Pt denies any fever, chill. Pt denies any vomiting. ovary1 Pt had pelvic ul trasound and right ovary is NOT identified. Pt had partial hysterectomy but she is not aware of why her right ovary is missing Pt is actually involved in a lawsuit with her chief growth officer who did the hysterectomy sleep apnea1 Pt has sleep date pitter ea .pt states that she is not sleeping through the night with cpap. Pt states that she sleeps better without the cpap. asthma1 Pt recently went to urgent care for coughing and sob. Pt was diagnosed with asthma exacerbation Pt was prescribed prednisone and her symptoms completely resolved .Pt does use qvar, singulair but she keeps skipping qvar dose and she states that she kind only use qvar PRn? . Pt denies any fever, cough or sob. pt uses albuterol and feels sob very rarely every about once every 2-3 months. Pt denies any hemoptysis. renal cyst1 Pt had CT done b y GI which showed 5.2 cm cortical cyst at upper pole of left kidney. CT also failed to show right ovary. Pt denies any pelvic pain pt had partial hysterectomy but she is not completely sure .Pt does not think her right ovary was removed. Pt denies any pelvic pain or bleeding sleep apnea1 Pt states that s he downloaded the woodrow for CPAP and she has been using it nightly and she actually feels that pressure is perfect now Pt denies any snoring and she feels much better rested at night and she no longer feels fatigue wrist pain1 Pt c/o mild disc omfort around radial wrist and also base of thumb for one month Pt denies any numbness or tingling anymore Pt denies any weakness Pt denies dropping things. Pt feels pain around above area almost all the time. Pt denies any injury Pt had negative NCS. pt denies any swelling pt denies any redness or warmth knee pain1 Pt c/o chronic r ight knee pain Pt has arthritis on right knee. Pt denies any swelling Pt denies any redness or warmth sleep apnea1 Pt states that s he has been using APAP and she feels that the pressure is not enough. Pt feels sometimes the pressure is too strong and sometimes the pressure is too little. Pt does snore and she feels tired foot pain1 Pt c/o sharp anderson n around arch of left foot near the heel area for 4 weeks. Pt states that she notices more pain after getting up in the morning or getting up from sitting position. Pt states that she feels better during the day but she still feels the pain after on her feet for very long Pt denies any redness or swelling Pt denies any numbness pt denies any injury Pt feels that she is stepping on glass first in the morning. Pt denies any injury, Pt denies any numbness or cold extremity Pt denies any calf pain right hand pain1 pt c/o mild fin mor numbness and tingling right 1st and 2nd finger for one week. Pt denies any right hand weakness Pt denies waking up at night from the discomfort. Pt also notices some pain around thenar area of right thumb. Pt has been using wrist splint when she types on her computer during last week. Pt denies any injury. Pt also notices radiating of pain to her right forearm. Pt also has some wrist discomfort. Pt denies cold or discoloration of the finger. fibromyalgia1 Pt has fibromyal fabricio. pt takes amitriptyline and doing ok Pt failed lyrica and neurontin pelvic floor1 Pt was told by lluvia chavez to take amitriptyline 25 mg BID which has been working for her. Pt wants refill. fatigue1 Pt has chronic f atigue. Pt does snore Pt has sleep apnea on sleep study facial rash1 Pt has intermitt ent facial rash. Pt has recent history of ovarian vein thrombosis. Pt had negative rheumatological lab .Pt was told by cardiology that she needs to see rheumatology .Pt palpitation Pt states that s he has intermittent chest palpitation Pt was just cleared by cardiology Pt denies any chest pain bowel1 Pt states that s he notices some bowel urgency. Pt states that she feels urge to have BM every night for the past week with urge to have multiple bm and sometimes she can not even wait for getting to bathroom before leaking Pt denies any urinary symptoms pt denies any diarrhea Pt denies any blood in stool fibromyalgia1 Pt has fibromyal fabricio. Pt states that she has not had any pain so she did not start lyrica. Pt is seeing pain management and is getting SI joint injections Pt currently doing ok facial flushing1 Pt states that sometimes she feels hot flushes especially around her face for last several months Pt had partial hysterectomy .Pt still has ovary intact Pt denies any night sweat .pt denies any chills. Pt denies any facial rash, Pt state that flushing feeling comes and goes .Pt does not know any trigger factor . HTN Pt has borderlin e HTn Pt denies any chest pain or headache . fatigue1 Pt has chronic f atigue, Pt hernández snore Pt has not done sleep study yet palpitation1 Pt has occasiona l palpitation Pt had cardiac echo and holter recently. Holter showed some SVT and ventricular ectopy Pt denies any chest pain or acute symptoms Pt has woodrow with cardiology in two days . HIVE1 Pt has intermitt ent mild rash both knee after shower for the past several months. Pt denies any itching or any spreading to other area pt states that rash is not itching and usually goes away after 1/2 hours ,Pt denies sob or trouble with swallowing Pt only notices the rash occasionally after shower. Pt denies using any new hygiene products or scrubbing knee particularly renal1 Her renal functi on and leukocytosis resolved. Her TSH is ok. tachycardia1 Pt had holter an d cardiac echo and PFT and she sees cardiology Pt denies any palpitation or chest pain. Pt states that she does notices mild dizziness when she stands up sometimes without any syncope. Pt denies any headache . fibromyalgia1 Pt has fibromyal fabricio. Pt unable to tolerate neurontin due to mild headache .Pt takes amitriptyline and doing well for her fibromyalgia and also pelvic floor pain. fatigue1 Pt feels fatigue all the time Pt does not snore .Pt does wake up feeling tired. Pt denies any insomnia . physical Pt needs annual physical Pt recently had partial hysterectomy and she developed pelvis abscess post op and she was actually to ICU with IV abx pt had drain placement which was successfully removed later Pt finished oral abx several days ago Pt was actually transferred to [facility] recently and she was on vancomycin and she apparently had acute renal injury and she was weaned off vancomycin and her renal function recovered Pt also had renal function last week and was told improving. Pt is seeing chief growth officer at [facility] now and was told renal lab improving now Pt actually has woodrow with fingerprinter at [facility] in October Pt denies any pelvic pain, pt overall feels better. Pt is on eliquis now due to ovarian vein thrombosis post surgery Pt had negative STD work up pt. pt needs ventolin refilled Pt has fibromyalgia and she takes Neurontin and amitriptyline and doing ok asthma1 Pt has well cont rolled asthma. Pt usually does not have attack for several month and she is on singulair Pt c/o acute worsening sob with some wheezing and sob requiring daily ventolin since las 4-5 days. Pt has dry cough. Pt has some allergy symptoms. Pt denies any hemoptysis fever back pain1 Pt has chronic l ow back pain Pt has mild sciatica. Pt has mild leg numbness. PT denies any loss of bladder control. Pt is on neurontin and amitriptyline ,Pt is seeing pain management. lumbago1 Pt has chronic l ow back pain with bilateral sciatica. Pt has sharp pain and worse with activity Pt denies any loss of bladder control. Pt is taking neurontin and amitriptyline and helps slightly. Pt failed PT. pt states that sometimes back pain is around 7/10 intermittently throughout the day fibromyalgia1 Pt has fibromyal fabricio. Pt takes Neurontin and amitriptyline which is helping her fibromyalgia type of pain asthma1 Pt takes singula ir and she rarely needs to use albuterol. Pt has one handy but she has not needed to use it for long time. Pt denies any wheezing pelvic floor1 Pt has urinary u rgency. Pt denies any dysuria. pt has some mixed incontinence. Pt did see urology and had ultrasound of bladder and she was told that she has pelvic floor dysfunction, NOT IC. pt did not do cysto. back pain1 Pt has chronic l ow back pain with mild sciatica to both legs. Pt denies any leg numbness. Pt denies any loss of bladder control. Pt states that the pain is sharp and intermittent but seems getting worse lately. pt also has diffuse upper back muscle pain Pt does have fibromyalgia Pt is wondering if she has erlos danlos syndrome. Pt denies any flexible joint and stretchy skin polycythemia1 Pt had negative hematology evaluation Pt just had lab done and hemoglobin and iron are all normal. cystitis1 Pt has recurrent dyspareunia. pt does not have endometriosis pt has low pelvic pain Pt does not have any bacterial infection Pt is seeing urology now and she will have cysto soon. pt denies any flank pain, fever, chill fibromyalgia1 Pt tolerating am itriptyline ok. Pt denies any jaw pain or headache UTI1 Pt c/o urinary f requency, urgency and dysuria, since last . Pt denies any fever, chill, flank pain. Pt has been using cranberry juice. Her dysuria, resolved but she still has frequency. pt denies any fever, chill. pt denies any vaginal bleeding or discharge. Pt did have mild dyspareunia which resolved. pt has history of ovarian cyst. Pt denies any vaginal bleeding. Pt denies any flank pain, fever, chill PHysical Pt needs annual physical pt has fibromyalgia. Pt was s taking Neurontin and amitriptyline and was doing ok. Pt states that she started to have vague left temporal area pain intermittently since 2 months ago but she does not think it is headache .Pt feels a weird twitch left temporal area and also then she started to have right side temporal area symptoms as well. Pt denies any trigger factor. Pt denies any headache or vision change. Pt states that she hernández snot know how to describe her symptoms. Pt states that she stopped taking neurontin and amitriptyline on her own and the symptoms resolved but she notices the temporal area pain restarted recently for several weeks. Pt denies any numbness or tingling. Pt feels some vague pain to left jaw yesterday. Pt had bilateral wisdom tooth removed last year. pt denies any facial droop. Pt denies any acute pain Pt denies any nausea, vomiting. Pt does not think she grind her tooth. Pt denies any head injury or waking up at night with temporal pain. Pt states that it occur very randomly and seldom. Pt has been having some anxiety as well. p feels stressed. Pt denies any depression or any suicidal thought pt states that amitriptyline did help her with anxiety. pt has asthma. Pt takes singulair daily and ventolin PRN. Pt usually uses ventolin 1-2 per week. Pt has been using more due to recent allergy season. Pt denies any acute sob. Pt denies any vision change. Pt denies any recent travel or sick contact Pt denies any night sweat or weight change. Pt denies any insect bite sleep1 Pt denies any sn oring and she has been sleeping better and she denies any fatigue since on amitriptyline Pt does NOT want sleep study sore throat1 Pt has sore thro at x 5 days. Pt denies any difficulty with swallowing. Pt states that it hurts worse in the morning but is improving. Pt denies any other URI symptoms. Pt went to urgent care 3 days ago and had negative rapid strep. Pt denies any rash back pain1 Pt states that h er back pain resolved with steroid, ibuprofen. fibromyalgia1 Pt has diffuse m uscle pain around her back and she is doing ok with amitriptyline and also neurontin. Pt denies any worsening pain. her level of pain is much improved. fibromyalgia1 Pt states that n eurontin and amitriptyline is helping with her fibromyalgia pain. pt states that upper back and neck pain improving. back pain1 pt has chronic l ow back pain pt denies any injury Pt denies any sciatica. Pt denies any loss of bladder control. Pt states that she has worsening left low back pain x 3 weeks without injury. Pt c/o intermittent shooting pain down to left leg. Pt denies any numbness. Pt does not have any urinary or bowel issue. pt has sharp pain. Pt has 4/10 pain but 7/10 with movement. Pt has not tried any OTC meds so far. Pt feels something catching left lower back fatigue1 Pt feels fatigue all day, especially in the morning. Pt states that she sleeps 8 hours nightly and she still wakes up in the morning feeling fatigue. Pt does not snore and she does not have any movement disorder during sleep. Pt states that she is mouth breather. Pt denies waking up at night with breathing issue pain1 Pt has diffuse m uscle pain and joint pain all over, including neck, upper back, lower back, upper thigh, knee, wrist and muscle spasm for several years. Pt tried muscle relaxant but did not help. Pt denies any injury pt feels some vague tension type of headache. Pt denies any acute headache or waking up at night with headache depression1 Pt states that s he is not depressed but she has mild poor mood. Pt denies any crying spells. Pt just feels overwhelmed without motivation Pt denies any suicidal or homicidal thought. knee pain1 Pt c/o chronic b ilateral knee and ankle pain for long time. pt has bilateral wrist pain and back pain as well. Pt feels dull ache and sharp pain , regardless of activity. Pt c/o left sciatica. Pt denies any numbness. Pt denies any injury. Pt denies any joint swelling or redness or warmth palpitation1 Pt cut down caff eine and she no longer has any palpitation. Pt denies any chest pain. Pt does not want cardiac echo anymore asthma1 Pt has asthma Pt takes singulair. Pt rarely uses albuterol .Pt need medication refilled. weight gain1 Pt has gained 7 pounds lately Pt has some recurrent fever blisters. Pt has some hot flash lately as well Pt no longer has period due to ablation pt did have heavy bleeding in the past . polycythemia1 Pt states that s he went to see hematology and her polycythemia resolved sleep Pt denies any mo re insomnia Pt denies any fatigue. Pt denies any snoring Pt no longer wants to do sleep study. Pt states that back pain resolved UTi1 Pt had two UTI d uring last two months Pt was given abx both time, which did help. Pt went to [facility] and had culture done .Pt denies any flank pain, fever, chill. Pt denies any holding urine Pt had to be drinking more caffeine recently Pt denies any active symptoms polycythermia1 Pt has polycythe leann. Pt hernández not smoke. Pt has normal iron. Pt states that he does have insomnia and also feels tired in the morning and rest of the day. pt does not snore per patient. vitami D Pt has low vitam i D cardiomyopathy1 Pt has family hi story of cardiomyopathy at early age. Pt seen cardiology two years ago due to palpitation. Pt told me she had cardiac echo done two years ago. Pt had negative work up. Pt has not had any more palpitation since stopping. caffeine/ pt denies any chest pain. back pain1 Pt has not had m uch low back pain but she notices some sciatica and upper leg numbness during last month Pt states that flexeril does not help. Pt denies any loss of bladder control. Pt only notices above when she does physical work PHysical Pt needs annual physical. Pt states that she has chronic low back pain for 3 years. Pt c/o intemrittent sciatica down to both hips Pt denies any injury ,Pt denies any loss of bladder control Pt denies any numnbess ,Pt c/o duall and constant pain. Pt had xray which was ok recently. Pt could not compmlete PT due to too much pain, ,Pt states that her mom has DDD on her back, Pt also has asthma. Pt takes singulair and ventolin Pt uses venotlin 1-2 per month. Pt states that she only uses singular PRN? Pt also told me she was told she was anemic but her previous PCP did not do anything. Pt denies any dizziness or chest pain Instructions Date Instruction Additional Infor maximiliano Weight gain advised Related to B carlos mass index (BMI) 24.0-24.9, adult Weight management Related to Abhi catalan for general adult medical exam w abnormal findings Special diet education Related t o Body mass index (BMI) 25.0-25.9, adult Medications as instructed Relate d to Fibromyalgia Medications as instructed Relate d to Fibromyalgia Increase physical activity Relat ed to Interstitial cystitis (chronic) without hematuria Medications as instructed Relate d to Fibromyalgia Weight gain advised Related to B carlos mass index (BMI) 24.0-24.9, adult Perform monthly self breast examinations. Related to Encntr for general adult medical exam w/o abnormal findings Increase physical activity Relat ed to Lumbago with sciatica, left side Weight management Related to Lum bago with sciatica, left side Increase physical activity Relat ed to Lumbago with sciatica, left side Weight management Related to Lum bago with sciatica, left side Medications as instructed Relate d to Fibromyalgia Increase physical activity Relat ed to Pain in unspecified joint Increase physical activity Relat ed to Insomnia Increase activity. Related to En cntr for general adult medical exam w/o abnormal findings Prescribed Activity and Exercise Education Related to Dietary Surveillance and Counseling Prescribed Diet Educ ation/Lifestyle Education Regarding Diet Related to Dietary Surveillance and Counseling Perform monthly self breast examinations. Related to Encntr for general adult medical exam w/o abnormal findings Assessments Type Assessment Date assessment Encounter for general adult medi nory exam w abnormal findings assessment Attention deficit assessment Generalized Anxiety Disorder Sep assessment Mild intermittent asthma, uncomp licated assessment Fatigue assessment Rheumatoid arthritis Mental Status Date Cognitive Assessment Orientation - [place] ed to time, place, person, situation.
--- OUTSIDE RECORDS SUMMARY | 2025-04-27 18:21 | XMS_ITS ---
Author Organization [facility] Address [address] [place], [place] [id number] Care Team Providers Care Injection Mold Tooling Technician Name Role Phone DAXA LOZA Unavailable [phone] Morteza Caceres Unavailable Unavailable Allergies Allergen (clinical drug ingredient) Drug/Non Drug Allergy documented on EMR Reaction Allergy Type Onset Date Status Product containing sulfonamide (product) (uncoded) Unknown Allergy 06/01/2020 active metronidazole Flagyl Unknown Drug Allergy 06/01/2020 ac tive Latex Latex Unknown Allergy 06/01/2020 active REASON FOR VISIT *Possible ingrown nail Medications Medication SIG (Take, Route, Frequency, Duration) Notes Start Date End Date Status Medrol 4 MG as directed Orally 11/21/2024 Active Vital Signs Height 64.00 in 04/17/2025 Weight 145 lbs 04/17/2025 BMI 24.89 kg/m2 04/17/2025 Height-cm 162.56 cm 04/17/2025 Weight-kg 65.77 kg 04/17/2025 Encounters Encounter Location Date Provider Diagnosis [facility] [address] [place], [place] [id number] 04/17/2025 DAXA LOZA Ingrowing nail L60.0 ; Cellulitis of right toe L03.031 ; Pain in right toe(s) M79.674 and Posterior tibial tendinitis of right lower extremity M76.821 Assessments Encounter Date Diagnosis (ICD Code) Assessment Notes Treatment Notes Treatment Clinical Notes Section Notes 04/17/2025 Ingrowing nail (ICD-10 - L60.0) We [...] procedures are proposed -Winograd left hallux 04/17/2025 Cellulitis of right toe (ICD-10 - L03.031) 04/17/2025 Pain in right toe(s) (ICD-10 - M79.674) 04/17/2025 Posterior tibial tendinitis of right lower extremity (ICD-10 - M76.821) Orthotic casting: The patient was casted for functional orthotic devices. This was done in the subtalar joint neutral position in a non-weightbearing fashion. The patient will follow-up in 3 weeks time to be dispensed and fitted with the devices. Plan Of Treatment Treatment Notes Assessment Notes Ingrowing nail We discussed both co nservative and surgical treatment options. We discussed the intra-operative and post-operative treatment course. We discussed the risks and complications including, but not limited to: pain, infection, swelling, numbness, under-correction, over-correction, stiffness, no improvement, and need for further surgery. No guarantees were given, nor implied. Questions encouraged and answered. Consent reviewed and placed in chart. The following procedures are proposed -Winograd left hallux Posterior tibial tendinitis of right lower extremity Orthotic casting: The patient was casted for functional orthotic devices. This was done in the subtalar joint neutral position in a non-weightbearing fashion. The patient will follow-up in 3 weeks time to be dispensed and fitted with the devices. Next Appt Details Provider Name:DAXA MCKINNEY, 05/11/2025 07:40:00 AM, [address], [address], [id number], Provider Name:DAXA MCKINNEY, 06/16/2025 07:30:00 AM, [address] [place], [place], [id number], Provider Name:DAXA MCKINNEY, 06/22/2025 07:30:00 AM, [address], [facility], [place], [place], [id number], Progress Notes * DARRYL DONATODOB:1995 ( 30 yo F)Acc No.[id number]:04/17/2025 Patient: DARRYL HIDALGO Provider: Max Loza DPM :1995 A ge:30 Y S ex:Female Date:04/17/2025 Address:[address] [place], [place] [id number] Subjective: * Chief Complaints: * 1 . *Possible ingrown nail. * HPI: H PI: Follow Up Visit P atient presents for follow up visit for an ingrown toenail. Patient had the lateral border of her left great toenail removed on 01/24/25. She states she started having some swelling and pain again a couple weeks ago. She thinks she is getting an ingrown toenail again. S he also would like new orthotics . * Medical History: M edical History Verified. * Family History: F ather: PRN - Father: . M other: PRN - Mother: :: Heart Disease < 55 yrs,,known absent . * Social History: M igrated Social History: M igrated Social History: History of tobacco use : , Smoking Status : Never used tobacco. * Medications: T aking Medrol 4 MG Tablet Therapy Pack as directed Orally , Medication List reviewed and reconciled with the patient * Allergies: P roduct containing sulfonamide (product): Allergy - Onset Date 06/01/2020, Flagyl: Allergy - Onset Date 06/01/2020, Latex: Allergy - Onset Date 06/01/2020. Objective: * Vitals: W t:145lbs, Wt-k.77 kg, Ht: 64.00 in, Ht-cm: 162.56 cm, BMI:24.89Index, Body Surface Area: 1.72. * Examination: C onstitutional: Constitutional T he patient is awake, alert, well developed, well groomed and well nourished. . D ermatologic: Skin findings: S kin is warm, dry, supple with no breaks in the skin. . Nail pathology: N ails 1-5 bilateral are normal in appearance and thickness. No discoloration. . Ulcer: T here is no evidence of ulceration noted at this time . Hyperkeratotic Skin Lesion T here is no evidence of hyperkeratosis . Ingrown Nail l ateral border of the left great toenail .? M usculoskeletal: Muscle Strength M uscle strength is 5/5 in regards to dorsiflexion, plantarflexion, inversion, and eversion in bilateral lower extremities. . Foot Structure T he foot structure is noted to be normal bilaterally . Pain on palpation T here is no pain on palpation . Gait T here is normal gait noted . N eurologic: Muscle power: 5 /5 bilaterally . Gross sensation G ross sensation is intact to light touch. . V ascular: Dorsalis pedis pulse: 2 /4 bilateral . Posterior tibial pulse: 2 /4 bilaterally . Capillary refill: l ess than 3 seconds bilaterally . Temperature gradient: w ithin normal limits . ? Assessment: * Assessment: 1. I ngrowing nail - L60.0 (Primary) 2 . C ellulitis of right toe - L03.031? 3. P ain in right toe(s) - M79.674 4 . P osterior tibial tendinitis of right lower extremity - M76.821 Plan: * Treatment: 2. P osterior tibial tendinitis of right lower extremity Notes: Orthotic casting: The patient was casted for functional orthotic devices. This was done in the subtalar joint neutral position in a non-weightbearing fashion. The patient will follow-up in 3 weeks time to be dispensed and fitted with the devices. * Billing Information: * Visit Code: 37384 Office Visit, Est Pt., Level 4. * Procedure Codes: * Electronic signature of DAXA LOZA DPM on 04/27/2025 at 06:20 PM CDT Sign off status: Pending * Provider: Max Loza DPM Date: 04/17/2025 Generated for Hiram jacome/Dave/Tyler on: 04/27/2025 06:20 PM CDT History and Physical Notes * HPI (History of Present Illness) Category Sub-Category Detail Notes Category Not es HPI Follow Up Visit Patient presents for follow up visit for an ingrown toenail. Patient had the lateral border of her left great toenail removed on 01/24/25. She states she started having some swelling and pain again a couple weeks ago. She thinks she is getting an ingrown toenail again. She also would like new orthotics Examination Category Sub-Category Detail Notes Category Not es Constitutional Constitutional The patient is a wake, alert, well developed, well groomed and well nourished. Dermatologic Skin findings: Skin is warm, dr y, supple with no breaks in the skin. Nail pathology: Nails 1-5 bilateral are normal in appearance and thickness. No discoloration. Ulcer: There is no evidence of ulceration noted at this time Hyperkeratotic Skin Lesion There is no e vidence of hyperkeratosis Ingrown Nail lateral border of th e left great toenail Musculoskeletal Muscle Strength Muscle strength is 5/5 in regards to dorsiflexion, plantarflexion, inversion, and eversion in bilateral lower extremities. Pain on palpation There is no pain on palpation Foot Structure The foot structure i s noted to be normal bilaterally Gait There is normal gait noted Neurologic Muscle power: 5/5 bilaterally Gross sensation Gross sensation is i ntact to light touch. Vascular Dorsalis pedis pulse: 2/4 bilateral Posterior tibial pulse: 2/4 bilaterally Capillary refill: less than 3 seconds bilaterally Temperature gradient: within normal limi ts
--- OUTSIDE RECORDS SUMMARY | 2025-04-27 18:21 | XMS_ITS | Referral Summary ---
Author Organization [facility] Care Team Providers Care Project Analyst Name Role Phone Morteza Caceres MD Primary Care Provider Malcom Church MD Unavailable [phone] Encounters Date Type Department Care Team Description 04/19/2025 3:45 PM CDT [address] [address] 02/10/2025 10:28 AM CDT - 02/10/2025 11:59 PM CDT Hospital Encounter [facility] Radiology at [facility] [address] [place] [address] Cervical pain Discharge Disposition: Discharge to home or self care 02/10/2025 10:15 AM CDT Office Visit [facility] Orthopaedic Surgery [address] [facility] [address] [place] [address] Keegan Farrell MD Cervical pain (Primary Dx); Cervical myofascial pain syndrome; Strain of lumbar paraspinal muscle, initial encounter from Last 3 Months Allergies Active Allergy Reactions Criticality Noted Date [...] Mushroom Hives Medium 09/03/2019 When she touches [place] Unknown 10/12/2023 Allergy testing Sulfa (Sulfonamide Antibiotics) [...] (12/23/2021): Added automatically from request for surgery [id number] Right wrist tendinitis 04/10/2021 Right carpal tunnel syndrome 03/04/2021 Arthritis of carpometacarpal (CMC) joint of righ t thumb 12/26/2020 Right wrist pain 11/21/2020 Rash 11/30/2019 Postprocedural intraabdominal abscess 11/03/2019 Assessment & Plan (11/03/2019 2:42 PM SOFTWARE INTEGRATOR): Abscess previously drained at [facility]SH where she [...] 09/04/201908/29 Assessment & Plan (09/04/2019 5:48 PM SOFTWARE INTEGRATOR): Ms. Soledad Donato is a 24 year [...] 09/22/2019 Assessment & Plan (09/04/2019 5:49 PM SOFTWARE INTEGRATOR): Would recommend routine testing for STDs (patient [...] pre gnancy in second trimester 12/07/2015 09/22/2019 Immunizations Immunization Administration Dates Next Due Influenza, Unspecified 07/30/2019 Social History Tobacco Use Types Packs/Day Years [...] on file Legal Sex Female 9:19 PM SOFTWARE INTEGRATOR Gender Identity Female 03/13/2020 3:02 PM CDT Sexual Orientation Choose not to disclose 2019 3:02 PM CDT Last Filed Vital Signs Vital Sign Reading Time Taken Comments Blood Pressure 113/79 10/31/2024 7:48 AM SOFTWARE INTEGRATOR Pulse 95 10/31/2024 7:48 AM SOFTWARE INTEGRATOR Temperature 36.6 C (97.8 F) 10/31/2024 7:48 AM SOFTWARE INTEGRATOR Respiratory Rate 16 08/11/2024 2:12 PM SOFTWARE INTEGRATOR Oxygen Saturation 99% 10/31/2024 7:48 AM SOFTWARE INTEGRATOR Inhaled Oxygen Concentration - - Weight 66.5 kg (146 lb 9.6 oz) 02/10/2025 10:09 AM CDT Height 162.6 cm (5' 4) 02/10/2025 10:09 AM CDT Body Mass Index 25.16 02/10/2025 10:09 AM CDT Plan of Treatment Not on file Medical Devices Implanted Type Area Meat Cutter Device Identifier Shelf Expiration Date Model / Serial / Lot [employer] System Fixation Meniscal Reverse Curved Bend Tool Fast Fix Flex [id number] - [id number] Implanted:Qty: 1 on 10/19/2023 by Shant Jin MD at [facility] Orthopedic Eagle Left: Knee [employer] 06/11/2026 [id number] / / [id number] [employer] System Fixation Meniscal Reverse Curved Bend Tool Fast Fix Flex [id number] - [id number] Implanted:Qty: 1 on 10/19/2023 by Shant Jin MD at [facility] [employer] Eagle Left: Knee [employer] 06/11/2026 [id number] / / [id number] Procedures Procedure Name Priority Date/Time Associated Diagnosis Comments ESTRADIOL Routine 04/19/2025 3:55 PM CDT FOLLICLE STIMULATING HORMONE Routine 04/19/2025 3:55 PM CDT TSH Routine 04/19/2025 3:55 PM CDT BLOOD MISC TO [place] Routine 04/19/2025 3: 48 PM CDT XR [...] was last revised 2024. Testing performed by: [facility], [address] [facility], [place]., [address] Blood 04/19/2025 3:55 PM CDT 04/19/2025 7:10 PM CDT Jace Higginbotham MD LAB BLOOD ORDERABLES Karmen l Result Performing Organization Address City/[facility]/ZIP Co de Phone Number [facility] ([place]) [address] [facility] [place] [address] * TSH (04/19/2025 3:55 PM CDT) Thyroid Stimulating Hormone 0.98 0.30 - 4.20 mcIUnit/mL [facility] ([place]) Blood 04/19/2025 3:55 PM CDT 04/19/2025 3:59 PM CDT us Jace Higginbotham MD LAB BLOOD ORDERABLES Karmen l Result [facility] ([place] [address] [facility] [place] [address] * Follicle stimulating hormone (04/19/2025 3:55 PM CDT) FSH 8.4 IUnits/L Comment: Interpretive Data Male: Adults: 1.5 - 12.4 IUnits/L Female: Follicular: 3.5 - 12.5 IUnits/L Ovulation: 4.7 - 21.5 IUnits/L Luteal: 1.7 - 7.7 IUnits/L Postmenopausal: 25.8 - 134.8 IUnits/L Current interpretive data was last revised 2015. Testing performed by: [facility], [address] [facility] [place]., [address] Blood 04/19/2025 3:55 PM CDT 04/19/2025 7:10 PM CDT us Jace Higginbotham MD LAB BLOOD ORDERABLES Karmen l Result [facility] ([place]) [address] [facility] Department [place] [address] * XR Spine Cervical Complete 4 or [...] it. Electronically signed by: Willa Jimenez MD Keegan Farrell MD IMG XR PROCEDURES Final [...] a test for HCV RNA (test code 42722) is suggested. For additional information please refer to http://education.Medprivé/faq/WMV53c2 (This link is being provided for informational/ educational purposes only.) Blood specimen (specimen) 03/07/2020 11:12 AM CDT 03/07/2020 11:13 AM CDT Narrative [facility] - 03/13/2020 11:54 PM CDT FASTING:YES FASTING: YES Marilou Diamond MD LAB MICROBIOLOGY - GENERAL ORDERABLES Final Result [facility] [address] [place] [address] from Last 3 Months or Most Recently Relevant to Health Maintenance Insurance [employer] BLUE [employer] BLUE [employer] [facility] Advance Directives For more information, please contact: [phone] * Full Code (Latest Code Status on File) Date Activated Date Inactivated Comments 09/03/2019 5:55 PM 09/09/2019 7:01 PM Care Teams Project Analyst Relationship Specialty Start Date End Date Morteza Caceres MD [address] [place] [address] PCP - General 09/03/19 Malcom Church MD [address] [place] [address] Consulting Physician Cardiology 06/26/21
--- OUTSIDE RECORDS SUMMARY | 2025-04-27 18:21 | XMS_ITS | Continuity of Care Document ---
Author Organization [facility] Address [address] [place] [address] [address] [place] [address] Phone Care Team Providers Care Molasses Preparer Name Role Phone Yevgeniy CRUZ/Ellen Keith CHT Unavailable Erica vailable Procedures Procedure Date Orthotic Mgmt and Training Wrist & Thumb Forearm based opponens Mar Advance Directives Directive Yes / No Effective Date File Name No Information Encounters Encounter Description Practice Location Reason(s) For Visit Diagnoses Date Provider Providers Copied on Encounter [facility], [address] [place], [place] [address], [place], [place], [id number], tel:[phone] [place] No Information 0 Yevgeniy Hughes. [address] [facility], [address], [address], . tel:[phone] Referring Provider: Morteza Caceres, [address] [facility] [address], [place], [address]. tel:[phone] Family History Family Member Type Diagnosis Age At Onset No Information Payers Payer name Insurance type Covered libertarian ID Authoriza tion(s) [facility] [id number] Social History Type Description Quantity Date Captured Comments Sex Female Smoking Status No Information Chief Complaint And Reason For Visit No Information Reason For Referral Reason For Referral No Information History Of Present Illness Encounter Date Complaint History Of Prese nt Illness No Information Functional Status Date Functional Assessmen t No Information Instructions Date Instruction Additional Infor mation No Information Assessments Type Assessment Date No Information Patient Care Teams Name Effective Dates (start - stop) Status Members No Information
[2025-04-27 18:22] VITALS: BP 114/75; PULSE 95; RESP 16; TEMP 36.8; O2SAT 100
--- NOTE | 2025-04-27 18:33 | ED_ITS ---
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 Cody, ELECTRONIC IMAGING SYSTEM OPERATOR - Last Filed: 04/27/25 18:38> Focused HPI: Patient is a 30-year-old female who presents to the ER with complaints of left lower quadrant pain. She reports she had an OBGYN appointment on April 18, [address] Ana Laura Higginbotham. Patient reports he palpated a left ovarian cyst during pelvic exam. She reports she had an ultrasound done on April 20, 2025 which showed an enlarged cyst. Patient reports the pain worsened last night around 8:00 p.m. She rates her pain at 7/10. Patient reports she last took ibuprofen around 11:00 a.m. today. Patient endorses a history of ovarian cysts. She has also had a hysterectomy. Patient reports her last bowel movement was this morning and it was loose. She denies any back pain, urinary symptoms, or recent fevers. GENERAL: Well-appearing, well-nourished, and in mild distress d/t pain. HEAD: Normocephalic, atraumatic. CHEST: Clear to auscultation. ?No respiratory distress. HEART: Regular rate and rhythm.? NEURO: ?Alert and oriented x3. ABD: + pain with palpation LLQ Patient screened in triage and initial orders placed.? ?Additional care and disposition to be based upon?diagnostic testing and treatment. <Angelica Inna Ross, ELECTRONIC IMAGING SYSTEM OPERATOR - Last Filed: 04/27/25 18:38> Focused HPI: Patient is a 30-year-old female who presents to the ER with complaints of left lower quadrant pain. She reports she had an OBGYN appointment on April 18, [address] Ana Laura Higginbotham. Patient reports he palpated a left ovarian cyst during pelvic exam. She reports she had an ultrasound done on April 20, 2025 which showed an enlarged cyst. Patient reports the pain worsened last night around 8:00 p.m. She rates her pain at 7/10. Patient reports she last took ibuprofen around 11:00 a.m. today. Patient endorses a history of ovarian cysts. She has also had a hysterectomy. Patient reports her last bowel movement was this morning and it was loose. She denies any back pain, urinary symptoms, or recent fevers. GENERAL: Well-appearing, well-nourished, and in mild distress d/t pain. HEAD: Normocephalic, atraumatic. CHEST: Clear to auscultation. ?No respiratory distress. HEART: Regular rate and rhythm.? NEURO: ?Alert and oriented x3. ABD: + pain with palpation LLQ Patient screened in triage and initial orders placed.? ?Additional care and disposition to be based upon?diagnostic testing and treatment. <Savanna Estrella PA-C - Last Filed: 04/27/25 23:53> Source: patient <SO Mcmahan Last Filed: 04/27/25 23:53> Mode of arrival: ambulatory <Savanna Estrella PA-C - Last Filed: 04/27/25 23:53> Limitations: no limitations <SO Mcmahan Last Filed: 04/27/25 23:53> History of Present Illness HPI Narrative: Agree with above HPI. Scheduled to have L oophorectomy on May 12. <SO Mcmahan Last Filed: 04/27/25 23:53> Related Data Home medications: Home Medications ?Medication ?Instructions ?Recorded ?Confirmed ?Last Taken ?Type bupropion HCl 150 mg 24 hr tablet, 150 mg PO DAILY 12/19/21 12/19/21 Unknown History extended release diltiazem HCl 120 mg 120 mg PO DAILY 12/19/21 12/19/21 Unknown History capsule,extended release 24 hr montelukast 10 mg tablet 10 mg PO HS 12/19/21 12/19/21 Unknown History (Neema) <Angelica Ross APRN - Last Filed: 04/27/25 18:38> Allergies/Adverse reactions: Allergies Allergy/AdvReac Type Severity Reaction Status Date / Time adhesive tape Allergy Severe BLISTERS Verified 03/15/24 20:59 ammonia Allergy Severe Anaphylaxis Verified 03/15/24 20:59 latex Allergy Severe RASH, Verified 03/15/24 20:59 swelling mold Allergy Severe Dyspnea / Verified 03/15/24 20:59 SOB tioconazole (From Monistat 1 Allergy Severe vaginal Verified 03/15/24 20:59 (tioconazole)) swelling metronidazole Allergy Intermediate RASH, hives Verified 03/15/24 20:59 Sulfa (Sulfonamide Allergy Unknown Unknown Verified 03/15/24 20:59 Antibiotics) tumeric Allergy Severe Swelling, Uncoded 03/15/24 20:59 rash mildew AdvReac Unknown trouble Uncoded 03/15/24 20:59 breathing <Angelica Ross APRN - Last Filed: 04/27/25 18:38> Review of Systems Review of Systems: All systems reviewed & are unremarkable except as noted in HPI. <Savanna Estrella PA-C - Last Filed: 04/27/25 23:53> All systems reviewed & are unremarkable except as noted in HPI and below <Savanna Estrella PA-C - Last Filed: 04/27/25 23:53> [facility] Past Medical History Medical History: Medical History Acute vaginitis Vaginal delivery x1 Anxiety and depression Sacroiliitis Spinal stenosis Scoliosis IBS (irritable bowel syndrome) Arthritis Tachycardia Thrombus Fibromyalgia Asthma PID (pelvic inflammatory disease) <Angelica Ross APRN - Last Filed: 04/27/25 18:38> Surgical History Surgical History: Surgical History History of bilateral salpingectomy 2018 History of laparoscopy x2, exploratory surgery looking for endometriosis [place] teeth extracted History of back surgery 2019, Ablation History of ankle surgery 2020 History of endometrial ablation Hx of section X2 History of dilation and curettage History of hysterectomy 08/18/2019 <Angelica Ross APRN - Last Filed: 04/27/25 18:38> Family History Family History: Family History Father Acute myocardial infarction Heart problem Mother Heart disease Alcoholism Grandparent Cancer either cervical or uterine <Angelica Ross APRN - Last Filed: 04/27/25 18:38> Social History Social History: Social History Smoking status: Never smoker Alcohol intake: never Substance use: never Substance use type: marijuana Living arrangements: with family Occupation/Education: other 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 HEAD: Normocephalic, atraumatic. RESPIRATORY: Airway patent, respirations nonlabored. Clear to auscultation bilaterally, no rales, rhonchi, wheezing. CARDIOVASCULAR: Regular rate and rhythm without murmurs, rubs, or gallops. ABDOMINAL: Soft, focal tenderness throughout left lower quadrant, nondistended. Normoactive BS. MUSCULOSKELETAL: Moves all extremities. No gross deformities. SKIN: Warm, dry, normal color. NEURO: A&O X3. Speech clear. Steady gait. No ataxic movements. PSYCHIATRIC: Appropriate mood and affect. Normal interaction. <Savanna Estrella PA-C - Last Filed: 04/27/25 23:53> Course Vital Signs Vital signs: Vital Signs Temperature 98.2 F 04/27/25 18:22 Pulse Rate 95 04/27/25 18:22 Respiratory Rate 16 04/27/25 18:22 Blood Pressure 114/75 04/27/25 18:22 Pulse Oximetry 100 04/27/25 18:22 Oxygen Delivery Room Air 04/27/25 18:22 Temperature 97.7 F 04/27/25 19:54 Pulse Rate 74 04/27/25 23:21 Respiratory Rate 16 04/27/25 23:21 Blood Pressure 117/59 L 04/27/25 23:21 Pulse Oximetry 99 04/27/25 23:21 Oxygen Delivery Room Air 04/27/25 18:22 <Angelica Ross APRN - Last Filed: 04/27/25 18:38> Vital Signs Temperature 98.2 F 04/27/25 18:22 Pulse Rate 95 04/27/25 18:22 Respiratory Rate 16 04/27/25 18:22 Blood Pressure 114/75 04/27/25 18:22 Pulse Oximetry 100 04/27/25 18:22 Oxygen Delivery Room Air 04/27/25 18:22 Temperature 97.7 F 04/27/25 19:54 Pulse Rate 74 04/27/25 23:21 Respiratory Rate 16 04/27/25 23:21 Blood Pressure 117/59 L 04/27/25 23:21 Pulse Oximetry 99 04/27/25 23:21 Oxygen Delivery Room Air 04/27/25 18:22 <Savanna Estrella PA-C - Last Filed: 04/27/25 23:53> MDM - Female Genitourinary MDM Narrative Medical decision making narrative: Patient presented to ED with L sided lower abdominal pain. History of enlarged ovarian cyst found recently the ultrasound. Has been seeing Dr. Ana Laura Higginbotham for this. Hx of previous hysterectomy. Scheduled to have oophorectomy next month. Vital signs stable upon arrival. Patient did take ibuprofen earlier today with minimal improvement. Will give additional pain relief here. UA clear. Urine is negative. Pelvic ultrasound obtained and overall reassuring. No abnormalities identified. Left ovary appears normal. No evidence of torsion. No free fluid. Discussed lab and imaging findings. Patient is feeling improved with supportive therapy. She was prescribed Dougherty today by Dr. Ana Laura Higginbotham, but had not taken this prior to arrival. Advised she may continue at home, in addition to Tylenol/ibuprofen, heating pad. Recommended close follow-up with OBGYN. No indication for emergent surgery at this time. Given return precautions. She agrees with plan. Discharged in stable condition. <Savanna Estrella PA-C - Last Filed: 04/27/25 23:53> Medical Records Attestation: I reviewed the patient's medical records. <Savanna Estrella PA-C - Last Filed: 04/27/25 23:53> Lab Data Attestation: I reviewed the patient's lab results. <Savanna Estrella PA-C - Last Filed: 04/27/25 23:53> Labs: Lab Results 04/27/25 04/27/25 Range/Units 20:25 20:29 Urine Color Yellow (Yellow) Urine Appearance Clear (Clear) Urine pH 5.5 (5.0-9.0) Ur Specific Denhoff 1.028 (1.001-1.035) Urine Protein Negative (Negative) mg/dL Urine Glucose (UA) Negative (Negative) mg/dL Urine Ketones Trace H (Negative) mg/dL Ur Blood (Man) Negative (Negative) Urine Nitrate Negative (Negative) Urine Bilirubin Negative (Negative) Urine Urobilinogen 1.0 (<2.0) mg/dL Leukocyte Esterase Rfl Negative (Negative) SHAHRZAD/UL POC Urine HCG, Qual Negative (Negative) <Angelica Ross APRN - Last Filed: 04/27/25 18:38> Lab Results 04/27/25 04/27/25 Range/Units 20:25 20:29 Urine Color Yellow (Yellow) Urine Appearance Clear (Clear) Urine pH 5.5 (5.0-9.0) Ur Specific Denhoff 1.028 (1.001-1.035) Urine Protein Negative (Negative) mg/dL Urine Glucose (UA) Negative (Negative) mg/dL Urine Ketones Trace H (Negative) mg/dL Ur Blood (Man) Negative (Negative) Urine Nitrate Negative (Negative) Urine Bilirubin Negative (Negative) Urine Urobilinogen 1.0 (<2.0) mg/dL Leukocyte Esterase Rfl Negative (Negative) SHAHRZAD/UL POC Urine HCG, Qual Negative (Negative) <Savanna Estrella PA-C - Last Filed: 04/27/25 23:53> Imaging Data Attestation: I personally reviewed and interpreted this imaging study as follows: <SO Mcmahan Last Filed: 04/27/25 23:53> Radiologist's impression: STAT RAD PELVIC US: Impression: No significant change as compared to 11/05/2021. Status post hysterectomy. Uterus not identified. Right ovary not identified. No adnexal mass identified. Unremarkable left ovary 3.8 x 2 x 3.4 cm with vascular flow. No free fluid. <Savanna Estrella PA-C - Last Filed: 04/27/25 23:53> Discharge Plan Discharge Clinical Impression: Left lower quadrant abdominal pain, History of ovarian cyst <Angelica Ross APRN - Last Filed: 04/27/25 18:38> Patient Disposition: Home <Angelica Ross APRN - Last Filed: 04/27/25 18:38> Condition: Stable <Angelica Ross APRN - Last Filed: 04/27/25 18:38> Instructions: Antibiotic Form, Ovarian Cyst (ED), Abdominal Pain (ED) <Angelica Ross APRN - Last Filed: 04/27/25 18:38> Additional Instructions: Continue Tylenol/ibuprofen, heating pad as needed for pain. Dougherty as needed for more severe pain. Continue to follow-up with OBGYN for further evaluation. Return to the ED for worsening or severe symptoms. <Angelica Ross APRN - Last Filed: 04/27/25 18:38> Patient Language: Setswana <Angelica Ross APRN - Last Filed: 04/27/25 18:38> Prescriptions: No Action diltiazem HCl 120 mg capsule,extended release 24hr 120 mg PO DAILY montelukast [Singulair] 10 mg Tablet 10 mg PO HS bupropion HCl 150 mg tablet extended release 24 hr 150 mg PO DAILY fluconazole [Diflucan] 150 mg tablet 150 mg PO ONCE Qty: 2 0RF Rx Instructions: Take 1 dose; repeat in 2-3 days if symptoms persist cephalexin 500 mg capsule 500 mg PO Q6H 7 Days Qty: 28 0RF methocarbamol 500 mg tablet 500 mg PO TID Qty: 21 0RF fluconazole 150 mg tablet 150 mg PO ONCE Qty: 1 0RF Rx Instructions: as a single dose <Angelica Ross APRN - Last Filed: 04/27/25 18:38> Follow-up/Referrals: Jace Cannon MD [Physician] - (OBGYN) UNKNOWN,DOCTOR [Primary Care Provider] - <Angelica Ross APRN - Last Filed: 04/27/25 18:38> Time of Disposition: 23:06 <Angelica Ross APRN - Last Filed: 04/27/25 18:38> 23:06 <Savanna Estrella PA-C - Last Filed: 04/27/25 23:53>
--- NOTE | 2025-04-27 19:52 | PC.NURSE ---
pt presents to ED c/o 03/07 stabbing pelvic pain, radiating down L leg. Pt states she has a scheduled procedure on 05/12 for cyst removal, but couldnt take the pain.
[2025-04-27 19:54] VITALS: BP 104/83; PULSE 74; RESP 20; TEMP 36.5
--- OUTSIDE RECORDS SUMMARY | 2025-04-27 20:28 | XMS_ITS | Clinical Summary ---
Author Organization [facility] Address [address] [place] [address] Phone Care Team Providers Care Occupational Health Nurse Manager Name Role Phone Morteza Caceres Primary Care Provider [phone] Allergies Active Allergy Reactions Criticality Noted Date [...] age to complete this topic Care Teams Occupational Health Nurse Manager Relationship Specialty Start Date End Date Morteza Caceres [address] [place] [address] PCP - General Family Medicine 01/11/18
--- OUTSIDE RECORDS SUMMARY | 2025-04-27 20:28 | XMS_ITS | Continuity of Care Document ---
Author Organization [facility] Address [address] [place] [address] [address] [place] [address] Phone Care Team Providers Care Anthropologist Name Role Phone Yevgeniy CRUZ/Ellen Keith CHT Unavailable Erica vailable Procedures Procedure Date Orthotic Mgmt and Training Wrist & Thumb Forearm based opponens Mar Advance Directives Directive Yes / No Effective Date File Name No Information Encounters Encounter Description Practice Location Reason(s) For Visit Diagnoses Date Provider Providers Copied on Encounter [facility], [address] [place], [place] [address], [place], [place], [id number], tel:[phone] [place] No Information 0 Yevgeniy Hughes. [address] [facility], [address], [address], . tel:[phone] Referring Provider: Morteza Caceres, [address] [facility] [address], [place], [address]. tel:[phone] Family History Family Member Type Diagnosis Age At Onset No Information Payers Payer name Insurance type Covered libertarian ID Authoriza tion(s) [facility] [id number] Social History Type Description Quantity Date Captured [...]
--- OUTSIDE RECORDS SUMMARY | 2025-04-27 20:28 | XMS_ITS | Clinical Summary ---
Author Organization [facility] Care Team Providers Care Sap Bw Architect Name Role Phone Morteza Caceres MD Primary Care Provider [phone] Malcom Church MD Unavailable [phone] Allergies Active Allergy Reactions Criticality Noted Date [...] Mushroom Hives Medium 09/03/2019 When she touches [place] Unknown 10/12/2023 Allergy testing Sulfa (Sulfonamide Antibiotics) [...] (12/23/2021): Added automatically from request for surgery [id number] Right wrist tendinitis 04/10/2021 Right carpal tunnel syndrome 03/04/2021 Arthritis of carpometacarpal (CMC) joint of righ t thumb 12/26/2020 Right wrist pain 11/21/2020 Rash 11/30/2019 Postprocedural intraabdominal abscess 11/03/2019 Assessment & Plan (11/03/2019 2:42 PM PHYSICIAN SURGEON): Abscess previously drained at [facility] where she [...] 09/04/201908/29 Assessment & Plan (09/04/2019 5:48 PM PHYSICIAN SURGEON): Ms. Soledad Donato is a 24 year [...] 09/22/2019 Assessment & Plan (09/04/2019 5:49 PM PHYSICIAN SURGEON): Would recommend routine testing for STDs (patient [...] Team Description 04/19/2025 3:45 PM CDT Lab [facility] [address] [place] [address] 02/10/2025 10:28 AM CDT - 02/10/2025 11:59 PM CDT Hospital Encounter [facility] Radiology at [facility] [address] [place] [address] Cervical pain Discharge Disposition: Discharge to home or self care 02/10/2025 10:15 AM CDT Office Visit [facility] Orthopaedic Surgery [address] [facility] 1[address] [place] [address] Keegan Farrell MD Cervical pain (Primary Dx); [...] Mother's Sister 2 Vida Dong Paternal Grandmother Sloedad Sullivan Social History Tobacco Use Types Packs/Day [...] on file Legal Sex Female 9:19 PM PHYSICIAN SURGEON Gender Identity Female 03/13/2020 3:02 PM CDT [...] Comments Blood Pressure 113/79 10/31/2024 7:48 AM PHYSICIAN SURGEON Pulse 95 10/31/2024 7:48 AM PHYSICIAN SURGEON Temperature 36.6 C (97.8 F) 10/31/2024 7:48 AM PHYSICIAN SURGEON Respiratory Rate 16 08/11/2024 2:12 PM PHYSICIAN SURGEON Oxygen Saturation 99% 10/31/2024 7:48 AM PHYSICIAN SURGEON Inhaled Oxygen Concentration - - Weight 66.5 [...] history exists Medical Devices Implanted Type Area Stone Processing Machine Operator Device Identifier Shelf Expiration Date Model / Serial / Lot [employer] Endoscopy System Fixation Meniscal Reverse Curved Bend Tool Fast Fix Flex [id number] - [id number] Implanted:Qty: 1 on 10/19/2023 by Shant Jin MD at [facility] [employer] Left: Knee [employer] 06/11/2026 [id number] / / [id number] [employer] Endoscopy System Fixation Meniscal Reverse Curved Bend Tool Fast Fix Flex [id number] - [id number] Implanted:Qty: 1 on 10/19/2023 by Shant Jin MD at [facility] [employer] Left: Knee [employer] End[employer] 06/11/2026 [id number] / / [id number] Procedures Procedure Name Priority Date/Time Associated Diagnosis Comments ESTRADIOL Routine 04/19/2025 3:55 PM CDT FOLLICLE STIMULATING HORMONE Routine 04/19/2025 3:55 PM CDT TSH Routine 04/19/2025 3:55 PM CDT BLOOD MISC TO ROSCOE Routine 04/19/2025 3: 48 PM CDT XR [...] was last revised 2024. Testing performed by: [facility], [address] [place]., [address] Blood 04/19/2025 3:55 PM CDT 04/19/2025 7:10 PM CDT Jace Higginbotham MD LAB BLOOD ORDERABLES Karmen l Result Performing Organization Address City/[facility]/ZIP Co de Phone Number [facility] ([place]) [address] [facility] [place] [address] * TSH (04/19/2025 3:55 PM CDT) Thyroid Stimulating Hormone 0.98 0.30 - 4.20 mcIUnit/mL [facility] ([place]) Blood 04/19/2025 3:55 PM CDT 04/19/2025 3:59 PM CDT Jace Higginbotham MD LAB BLOOD ORDERABLES Karmen l Result Performing Organization Address [facility] Co de Phone Number [facility] ([place]) [address] [place] [address] [place] [address] * Follicle stimulating hormone (04/19/2025 3:55 PM CDT) FSH 8.4 IUnits/L Comment: Interpretive Data Male: Adults: 1.5 - 12.4 IUnits/L Female: Follicular: 3.5 - 12.5 IUnits/L Ovulation: 4.7 - 21.5 IUnits/L Luteal: 1.7 - 7.7 IUnits/L Postmenopausal: 25.8 - 134.8 IUnits/L Current interpretive data was last revised 2015. Testing performed by: [facility], [address] [place]., [address] Blood 04/19/2025 3:55 PM CDT 04/19/2025 7:10 PM CDT us Jace Higginbotham MD LAB BLOOD ORDERABLES Karmen gallardo Result [facility] [place] [address] [facility] Department [place] [address] * XR Spine Cervical Complete 4 or [...] a test for HCV RNA (test code 80077) is suggested. For additional information please refer to http://education.JFDI.Asia/faq/UWM50y8 (This link is being provided for informational/ educational purposes only.) Blood specimen (specimen) 03/07/2020 11:12 AM CDT 03/07/2020 11:13 AM CDT Narrative [facility] - 03/13/2020 11:54 PM CDT FASTING:YES FASTING: YES Marilou Diamond MD LAB MICROBIOLOGY - GENERAL ORDERABLES Final Result [facility] [address] [facility] [place] [address] from Last 3 Months or Most Recently Relevant to Health Maintenance Insurance [place] [employer] [facility] [employer] [place] [employer] [place] Advance Directives For more information, please contact: [phone] * Full Code (Latest Code Status on File) Date Activated Date Inactivated Comments 09/03/2019 5:55 PM 09/09/2019 7:01 PM Care Teams Sap Bw Architect Relationship Specialty Start Date End Date Morteza Caceres MD [address] [place] [address] PCP - General 09/03/19 Malcom Church MD [address] [place] [address] Consulting Physician Cardiology 06/26/21
--- OUTSIDE RECORDS SUMMARY | 2025-04-27 20:28 | XMS_ITS | Referral Summary ---
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 Orthopaedic Surgery [address] [facility] 1[address] [place] [address] Keegan Farrell MD Cervical pain (Primary Dx); [...] Mushroom Hives Medium 09/03/2019 When she touches [place] Unknown 10/12/2023 Allergy testing Sulfa (Sulfonamide Antibiotics) [...] (12/23/2021): Added automatically from request for surgery [id number] Right wrist tendinitis 04/10/2021 Right carpal tunnel syndrome 03/04/2021 Arthritis of carpometacarpal (CMC) joint of righ t thumb 12/26/2020 Right wrist pain 11/21/2020 Rash 11/30/2019 Postprocedural intraabdominal abscess 11/03/2019 Assessment & Plan (11/03/2019 2:42 PM [employer] SPECIALIST): Abscess previously drained at OSH where she [...] 09/04/201908/29 Assessment & Plan (09/04/2019 5:48 PM [employer] FOR[employer] SPECIALIST): Ms. Soledad Donato is a 24 year [...] 09/22/2019 Assessment & Plan (09/04/2019 5:49 PM [employer] FOR[employer] SPECIALIST): Would recommend routine testing for STDs (patient [...] on file Legal Sex Female 9:19 PM [employer] SPECIALIST Gender Identity Female 03/13/2020 3:02 PM CDT Sexual Orientation Choose not to disclose 2019 3:02 PM CDT Last Filed Vital Signs Vital Sign Reading Time Taken Comments Blood Pressure 113/79 10/31/2024 7:48 AM [employer] SPECIALIST Pulse 95 10/31/2024 7:48 AM [employer] SPECIALIST Temperature 36.6 C (97.8 F) 10/31/2024 7:48 AM [employer] SPECIALIST Respiratory Rate 16 08/11/2024 2:12 PM [employer] SPECIALIST Oxygen Saturation 99% 10/31/2024 7:48 AM [employer] SPECIALIST Inhaled Oxygen Concentration - - Weight 66.5 kg (146 lb 9.6 oz) 02/10/2025 10:09 AM CDT Height 162.6 cm (5' 4) 02/10/2025 10:09 AM CDT Body Mass Index 25.16 02/10/2025 10:09 AM CDT Plan of Treatment Not on file Medical Devices Implanted Type Area Family Lawyer Device Identifier Shelf Expiration Date Model / Serial / Lot [employer] System Fixation Meniscal Reverse Curved Bend Tool Fast Fix Flex [id number] - [id number] Implanted:Qty: 1 on 10/19/2023 by Shant Jin MD at [facility] [place] Left: Knee [employer] 06/11/2026 [id number] / / [id number] [employer] System Fixation Meniscal Reverse Curved Bend Tool Fast Fix Flex [id number] - [id number] Implanted:Qty: 1 on 10/19/2023 by Shant Jin MD at [facility] [place] Left: Knee [employer] 06/11/2026 [id number] / / [id number] Procedures Procedure Name Priority Date/Time Associated Diagnosis Comments ESTRADIOL Routine 04/19/2025 3:55 PM CDT FOLLICLE STIMULATING HORMONE Routine 04/19/2025 3:55 PM CDT TSH Routine 04/19/2025 3:55 PM CDT BLOOD MISC TO LAKE Routine 04/19/2025 3: 48 PM CDT XR [...] was last revised 2024. Testing performed by: [facility], [address] [facility], [place]., [address] Blood 04/19/2025 3:55 PM CDT 04/19/2025 7:10 PM CDT Jace Hgiginbotham MD LAB BLOOD ORDERABLES Karmen l Result Performing Organization Address City/[facility]/ZIP Co de Phone Number [facility] ([place]) [address] [facility] [place] [place] [address] * TSH (04/19/2025 3:55 PM CDT) Thyroid Stimulating Hormone 0.98 0.30 - 4.20 mcIUnit/mL [facility] ([place]) Blood 04/19/2025 3:55 PM CDT 04/19/2025 3:59 PM CDT us Jace Higginbotham MD LAB BLOOD ORDERABLES Karmen l Result [facility] ([place]) [address] [facility] [place] [address] * Follicle stimulating hormone (04/19/2025 3:55 PM CDT) FSH 8.4 IUnits/L Comment: Interpretive Data Male: Adults: 1.5 - 12.4 IUnits/L Female: Follicular: 3.5 - 12.5 IUnits/L Ovulation: 4.7 - 21.5 IUnits/L Luteal: 1.7 - 7.7 IUnits/L Postmenopausal: 25.8 - 134.8 IUnits/L Current interpretive data was last revised 2015. Testing performed by: [facility], [address] [place]., [address] Blood 04/19/2025 3:55 PM CDT 04/19/2025 7:10 PM CDT us Jace Higginbotham MD LAB BLOOD ORDERABLES Karmen l Result [facility] ([place]) [address] [facility] [place] [address] * XR Spine Cervical Complete [...] a test for HCV RNA (test code 95573) is suggested. For additional information please refer to http://education.[employer]/faq/LVV02h5 (This link is being provided for informational/ educational purposes only.) Blood specimen (specimen) 03/07/2020 11:12 AM CDT 03/07/2020 11:13 AM CDT Narrative [facility] - 03/13/2020 11:54 PM CDT FASTING:YES FASTING: YES Marilou Diamond MD LAB MICROBIOLOGY - GENERAL ORDERABLES Final Result [facility] [address] [place] [address] from Last 3 Months or Most Recently Relevant to Health Maintenance Insurance [employer] [place] For more information, please contact: [phone] * Full Code (Latest Code Status on File) Date Activated Date Inactivated Comments 09/03/2019 5:55 PM 09/09/2019 7:01 PM Care Teams Meat Cutting Block Repairer Relationship Specialty Start Date End Date Morteza Caceres MD [address] [place] [address] PCP - General 09/03/19 Malcom Church MD [address] [place] [address] Consulting Physician Cardiology 06/26/21
--- OUTSIDE RECORDS SUMMARY | 2025-04-27 20:28 | XMS_ITS | Continuity of Care Document ---
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 subsequent lab ADD Pt has ADD Pt ta kes Vyvanse PRN. and doing ok Pt needs Vyvanse refilled. fatigue1 Pt has chronic f atigue .Pt has history of sleep apnea but she could not tolerate cpap. MCV Pt has large MCV Pt does not drink alcohol. shoulder pain1 Pt c/o left post erior upper shoulder pain and left side nec pain for a while Pt denies any injury Pt notices mild radiculopathy to left elbow sometimes Pt saw bone specialist and she will start PT shoulder pain1 Pt c/o left ante rior shoulder pain for several weeks Pt denies any injury ,Pt denies any swelling ,redness or warmth. Pt notices sharp pain when she tries to raise left shoulder to reach things. shoulder pain1 ADD Patient has ADD. Patient has inattentive [...] a while. Pt has been out of [facility] for a while and she wants to see a different butt welder for 2nd opinion Pt does have joint pain and some back pain. Pt states that her joint pain is flaring up now. anxiety1 Pt has chronic a nxiety and depression Pt denies any suicidal or homicidal thought Pt denies any crying spells pt states that she has not had wellbutrin for a while and she was by pharmacy that she has no refills left. RA Pt has RA and fi bromyalgia Pt has not seen rheumatology for a while. Pt has been out of [facility] for a while and she wants to see a different butt welder for 2nd opinion Pt does have joint [...] wheezing Pt denies any cough or hemoptysis. ADD Patient has ADD. Patient has inattentive type. Patient feels scatterbrained. Patient feel poor focus and difficulty completing tasks. Patient states that Vyvanse is helping with symptoms. Patient feels more focused. Pt feels more energy. Patient denies any headache, dry mouth, headache, chest pain. Patient denies any appetite loss. edema1 pt notices mild bilateral ankle swelling, [...] meniscus surgery left knee 2 weeks ago. cough1 pt c/o productiv e cough with [...] chest pain. Patient denies any appetite loss. ADD Patient has ADD. Patient has inattentive [...] doing ok Pt denies any hemoptysis, cough. knee1 Pt has persist l eft knee [...] denies any appetite loss. knee pain1 Pt fell off [employer] and landed on left knee 24 hours [...] able to weight bearing due to pain anxiety1 Pt has chronic a nxiety and depression Pt takes zoloft and wellbutrin and doing well. Pt denies any suicidal or homicidal thought Pt denies any crying spells. Pt needs zoloft refilled Pt denies any side effects from zoloft ADD Patient has ADD. Patient has inattentive type. Patient feels scatterbrained. Patient feel poor focus and difficulty completing tasks. Patient states that Adderall is helping with symptoms. Patient feels more focused. Pt feels more energy. Patient denies any headache, dry mouth, headache, chest pain. Patient denies any appetite loss. RA Pt has RA Pt is off methotrexate Pt is on simponi aria .Pt sees rheumatology . Pt is off methotrexate and folic itchy rash1 pt c/o diffuse i ntermittent [...] allergy testing. Pt denies any current symptoms ADD Patient has ADD. Patient has inattentive type. Patient feels scatterbrained. Patient feel poor focus and difficulty completing tasks. Patient states that Adderall is helping with symptoms. Patient feels more focused. Pt feels more energy. Patient denies any headache, dry mouth, headache, chest pain. Patient denies any appetite loss. Pt denies any insomnia anxiety1 Pt has chronic a nxiety and depression Pt no longer sees psychiatrist .Pt is still doing counseling Pt denies any suicidal or homicidal thought Pt denies any crying spells Pt takes wellbutrin and also zoloft and doing ok Pt needs wellbutrin refilled. pain1 Pt has chronic n kev and mid and low back pain pt sees pain management. Pt had x ray of neck and T spine done which was essentially benign with mild scoliosis and spondylos. 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 Pt denies any trigger [...] wrist is hyper mobile. Pt did see butt welder and also paperboard boxes estimator about mirta danlos syndrome which were negative [...] days. Pt denies any redness or warmth wrist pain1 pt c/o painful u lnar [...] pt does notices weakness of right hand fibromyalgia1 pt has fibromyal fabricio. Pt has back and neck pain Pt has some joint pain Pt sees pain management and receive injections Pt is on lyrica and amitriptyline currently Pt states that her pain seems getting worse. WBC Pt has mildly hi gh WBC [...] also notices hair loss recently during shower. kidney cyst1 Pt has left uppe r pole renal cyst, Pt had renal ultrasound done which showed benign finding. Pt denies any flank pain. Pt has not done urine albumin yet fibromyalgia1 Pt has fibromyal fabricio. Pt doing ok with amitriptyline 25 mg nightly. Pt states that her libido improved neck pain1 Pt c/o left side neck [...] is very painful and worse with movement. sleep apnea1 Pt has sleep ring spinner ea Pt had in lab titration study done and is awaiting for CPAP sleep apnea Pt has sleep ring spinner ea. Pt is seeing ENt/sleep and she had CPAP study done Pt had to return her APAP due to noncompliance and ENT is trying to get her a CPAP. Pt still feels fatigue proteinuria1 Pt has mild prot einuria on recent UA. kidney cyst1 Pt has a benign appearing right kidney cyst on recent CT scan pt denies any abd pain. Pt has not done renal ultrasound yet libido1 Pt has fibromyal fabricio. Pt also has pelvic floor dysfunction Pt is on amitriptyline and urology told her to go higher dose to 75 mg amitriptyline daily. However ,pt notices decrease sex drive with higher dose . UTI1 Pt c/o dysuria, urinary urgency and [...] actually involved in a lawsuit with her fruit checker who did the hysterectomy sleep apnea1 Pt has sleep ring spinner ea .pt states that she is not [...] diarrhea Pt denies any blood in stool fatigue1 Pt has chronic f atigue, Pt hernández snore Pt has not done sleep study yet palpitation1 Pt has occasiona l palpitation Pt had cardiac echo and holter recently. Holter showed some SVT and ventricular ectopy Pt denies any chest pain or acute symptoms Pt has woodrow with cardiology in two days . fibromyalgia1 Pt has fibromyal fabricio. Pt states [...] denies any chest pain or headache . HIVE1 Pt has intermitt ent mild [...] days ago Pt was actually transferred to [facility] recently and she was on vancomycin and she apparently had acute renal injury and she was weaned off vancomycin and her renal function recovered Pt also had renal function last week and was told improving. Pt is seeing fruit checker at [facility] now and was told renal lab improving now Pt actually has woodrow with guitar teacher at [facility] in October Pt denies any pelvic [...] weight change. Pt denies any insect bite fibromyalgia1 Pt has diffuse m uscle pain around her back and she is doing ok with amitriptyline and also neurontin. Pt denies any worsening pain. her level of pain is much improved. back pain1 Pt states that h er back pain resolved with steroid, ibuprofen. sore throat1 Pt has sore thro at x 5 days. Pt denies any difficulty with swallowing. Pt states that it hurts worse in the morning but is improving. Pt denies any other URI symptoms. Pt went to urgent care 3 days ago and had negative rapid strep. Pt denies any rash sleep1 Pt denies any sn oring and she has been sleeping better and she denies any fatigue since on amitriptyline Pt does NOT want sleep study fibromyalgia1 Pt states that n eurontin and [...] any joint swelling or redness or warmth asthma1 Pt has asthma Pt takes singulair. Pt rarely uses albuterol .Pt need medication refilled. palpitation1 Pt cut down caff eibrent and she no longer has any palpitation. Pt denies any chest pain. Pt does not want cardiac echo anymore polycythemia1 Pt states that s he went [...] caffeine recently Pt denies any active symptoms weight gain1 Pt has gained 7 pounds lately Pt has some recurrent fever blisters. Pt has some hot flash lately as well Pt no longer has period due to ablation pt did have heavy bleeding in the past . polycythermia1 Pt has polycythe leann. Pt hernández [...] (BMI) 24.0-24.9, adult Weight management Related to Enc ounter for general adult medical exam w abnormal findings Special diet education Related t o Body mass index (BMI) 25.0-25.9, adult Medications as instructed Relate d to Fibromyalgia Medications as instructed Relate d to Fibromyalgia Increase physical activity Relat ed to Interstitial cystitis (chronic) without hematuria Medications as instructed Relate d to Fibromyalgia Perform monthly self breast examinations. Related to Encntr for general adult medical exam w/o abnormal findings May-03-2019 Weight gain advised Related to B carlos mass index (BMI) 24.0-24.9, adult Increase physical activity Relat ed to Lumbago [...] Mental Status Date Cognitive Assessment Orientation - [place] ed to time, place, person, situation.
--- OUTSIDE RECORDS SUMMARY | 2025-04-27 20:28 | XMS_ITS | Clinical Summary ---
Author Organization [facility] Address [address] [place] [address] Care Team Providers Care School Office Assistant Name Role Phone Morteza Caceres MD Primary Care Provider [phone] Source Comments [facility],non-owned Affiliates and Associated Physician Practices is amultiple site organization consisting of ambulatory clinics and hospital sitesin [place], [place], [place] and [place]. This disclosure is being madepursuant to the Care Everywhere program and may not contain all information available regarding this patient. Last updated 18.[facility] Allergies Active Allergy Reactions Criticality Noted Date [...] () 12/07/2015 Supervision of high risk in [facility] 12/07/2015 Immunizations Immunization Administration Dates Next Due INFLUENZA VACCINE, QUADR. 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
--- OUTSIDE RECORDS SUMMARY | 2025-04-27 20:28 | XMS_ITS | Clinical Summary ---
Author Organization [facility] Address [address] [place] [address] Care Team Providers Care Solar Sales Ambassador Name Role Phone Unavailable Primary Care Provider [...] Description 06/16/2025 7:30 AM CDT Hospital Encounter [facility] [place] [address] Prudencio Loza, CEDRICKM [address] [place] [address] 06/16/2025 7:30 AM CDT - 06/16/2025 8:45 AM CDT Surgery [facility] [place] [address] Prudencio Loza DPM [address] [place] [address] WINOGRAD PROCEDURE LEFT BIG TOE [...]
[2025-04-27 20:31] LABS: BEDSIDEPREGUCG Negative (Negative)
[2025-04-27 20:33] LABS: Add Urine Microscopic? NO; Appearance Urine Clear (Clear); Glucose Urine UA Negative (Negative); Leukocyte Esterase Ur Negative LEU/UL (Negative); Nitrate Urine Negative (Negative); Specific Grav Ur 1.028 (1.001-1.035)
[2025-04-27] MEDS: HYDROcodone/acetaminophen (*CRX) 5-325 MG TABLET 1 TAB PO (20:40)
[2025-04-27 23:21] VITALS: BP 117/59; PULSE 74; RESP 16; O2SAT 99
== END 2025-04-27 23:24 | disposition home or self-care (01) ==
PROVIDERS: Emergency Provider Physician Assistant
DX: R10.32 Left lower quadrant pain (principal); J45.909 Unspecified asthma, uncomplicated; K58.9 Irritable bowel syndrome, unspecified; M19.90 Unspecified osteoarthritis, unspecified site; M79.7 Fibromyalgia; F41.9 Anxiety disorder, unspecified; F32.A Depression, unspecified; Z90.79 Acquired absence of other genital organ(s); Z90.710 Acquired absence of both cervix and uterus; Z79.899 Other long term (current) drug therapy
CPT/HCPCS: 76856; 81003; 81025; 99284; A9270

== ENCOUNTER 2025-05-06 11:22 | Outpatient (CLI) | payer BC, SELFPAY ==
--- OUTSIDE RECORDS SUMMARY | 2025-05-06 11:25 | XMS_ITS | Patient Health Record ---
Author Organization [facility] Address [address] [address] [place] [address] Care Team Providers Care Production Operator Name Role Phone Morris REAVES, Morteza Primary Care Provider Darby Benavidez Unavailable [phone] Allergies Allergen (clinical drug ingredient) Drug/Non Drug Allergy documented on EMR Reaction Allergy Type Onset Date Status metronidazole metroNIDAZOLE Unknown Drug Allergy Active tioconazole Monistat 1 Unknown Drug Allergy 10/28/2022 Act simon Latex Latex Unknown Allergy 10/24/2022 Active Substance with sulfonamide structure and antibacterial mechanism of action (substance) Sulfa Antibiotics Unknown Drug Allergy 10/24/2022 Active red oak pollen extract [place] Unknown Drug Allergy 06/28 Active Reason For [...] take 1 tablet daily oral *Reorder from [employer] for eRx and Interaction Alerts* Active Ventolin [...] W/U Status Risk Notes Problem Rheumatoid arthritis (01311844) 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 Metabolic Panel ([phone] 023 Insurance Providers Payer Name Payer Address Payer Phone Subscriber Number Group Number Insured Name Patient Relationship to Insured Coverage Start Date Coverage End Date Tracie [address] [address] [place] [address] [id number] Massey Soledad Self - patient is the insured Medical (General) History Medical History History ICD Code Asthma; Fibromyalgia; Sinus tachycardia; Surgical History Surgery Date(Month/Year) Uterine Ablation; 2022-10-24 Hysterectomy; 2022-10-24 tarsal tunnel release; 2022-10-28 section; 2022-10-28 Tendon repair: right, Date of Procedure: 2020; 2022-10-28
--- OUTSIDE RECORDS SUMMARY | 2025-05-06 11:25 | XMS_ITS | Patient Health Record ---
Author Organization [facility] Address [address] [place], [place] [id number] Care Team Providers Care Deck Engine Operator Name Role Phone DAXA BUITRAGO Unavailable [phone] Morteza Caceres Unavailable Unavailable Allergies Allergen (clinical [...] Date Provider Diagnosis [facility] [address] [place], [place] [id number] 11/21/2024 DAXA WHITTENBURG Posterior tibial tendinitis of right lower extremity M76.821 ; Pes planus of right foot M21.41 and Pain in right foot M79.671 [facility] [address] [id number] 04/17/2025 DAXA ISATUTENBURG Ingrowing nail L60.0 ; Cellulitis of right toe L03.031 ; Pain in right toe(s) M79.674 and Posterior tibial tendinitis of right lower extremity M76.821 [facility] [address] [id number] 12/21/2024 DAXA SHARBURG Posterior tibial tendinitis of right lower extremity M76.821 ; Flat foot [pes planus] (acquired), right foot M21.41 and Pain in right foot M79.671 [facility] [address] [id number] 01/24/2025 DAXA ISATUTENBURG Ingrowing nail L60.0 ; Cellulitis of right toe L03.031 and Pain in right toe(s) M79.674 [facility] [address] [id number] 02/08/2025 DAXA WHITTENBURG Ingrowing nail L60.0 and Encounter for other specified surgical aftercare Z48.89 [facility] [address] [id number] 04/20/2025 DAXABERONICA MYLESBURG Assessments Encounter Date Diagnosis [...] 07:40:00 AM, Sunday [address], [place], [place], [id number], Provider Name:DAXA MCKINNEY, 06/16/2025 07:30:00 AM, [address] [place], [place], [id number], Provider Name:DAXA MCKINNEY, 06/22/2025 07:30:00 AM, Sunday [address], [place], [place], [id number], Insurance Providers Payer Name Payer Address Payer Phone Subscriber Number Group Number Insured Name Patient Relationship to Insured Coverage Start Date Coverage End Date [facility] ([facility] ATTN CLAIMS [address] [place] [address] [id number] MARCIN DONATO Spouse - patient is the spouse of the insured
--- OUTSIDE RECORDS SUMMARY | 2025-05-06 11:25 | XMS_ITS | Clinical Summary ---
Author Organization [facility] Address [address] [place] [address] Phone Care Team Providers Care Straddle Carrier Operator Name Role Phone Morteza Caceres Primary Care Provider [phone] Allergies Active Allergy Reactions Criticality Noted Date [...] Virus (HCV) Screening 1993 TdaP Immunization 1993 Hepatitis B Immunization (1 of 3 - 19+ 3-dose series) 02/15/2012 Pap Smear 2014 Human Papillomavirus (HPV) Immunization (1 - 3-dose SCDM series) 02/15/2020 Cervical Cancer Screening (CCS) 2023 HPV/Cotest 2023 [...] age to complete this topic Care Teams Straddle Carrier Operator Relationship Specialty Start Date End Date Morteza Caceres [address] [place] [address] (work) PCP - General Family Medicine 01/11/18
--- OUTSIDE RECORDS SUMMARY | 2025-05-06 11:25 | XMS_ITS | Clinical Summary ---
Author Organization [facility] Address [address] [place] [id number] Care Team Providers Care Deflector Operator Name Role Phone Unavailable Primary Care Provider [...] Description 06/16/2025 7:30 AM CDT Hospital Encounter [facility] [place] [address] Prudencio Loza, CEDRICKM [address] [place] [phone] 06/16/2025 7:30 AM CDT - 06/16/2025 8:45 AM CDT Surgery [place] [address] Prudencio Loza DPM [address] [place] [phone] WINOGRAD PROCEDURE LEFT BIG TOE [...]
--- OUTSIDE RECORDS SUMMARY | 2025-05-06 11:25 | XMS_ITS | Continuity of Care Document ---
Author Organization [facility] Address [address] [place] [address] [place] [address] Phone Care Team Providers Care Switchgear Repairer Name Role Phone Morteza Caceres MD Unavailable [...] on Encounter PREV VISIT, EST, AGE [age] [facility], [address] [place], [address], [place] tel:[phone] [facility] physical (chief complaint) Encounter for general adult medical exam w abnormal findingsAttention deficitGeneralized Anxiety DisorderMild intermittent asthma, uncomplicatedFatigu eRheumatoid arthritis [address], [address], [place], [place], [address] , [place]. [phone] [facility], [address] [place], [address], [place] tel:[phone] [facility] No Information 4 Morris Rendon [address], [address], [place], [place], [address] , [place]. tel:[phone] OFFICE/OUTPA TIENT VISIT, EST [facility], [address] [place], [address], [place] tel:[phone] [facility] ADD (chief complaint) fatigue1 (chief complaint) MCV (chief complaint) shoulder pain1 (chief complaint) Pain in left shoulderFatigueAtte ntion deficitOther abnormality of red blood cellsGeneralized Anxiety Disorder Sep-2 4 [address], [address], [place], [place], [address] , [place]. tel:[phone] OFFICE/OUTPA TIENT VISIT, [facility], [address], [place], [place], [address], [place] [phone] [facility] shoulder pain1 (chief complaint) ADD (chief complaint) RA (chief complaint) shoulder pain1 (chief complaint) Attention deficitRheumatoid arthritisPain in left shoulder 4 Morris [address], [address], [place], [place], [address] , [place]. tel:[phone] OFFICE/OUTPA TIENT VISIT, [facility], [address], [place], [place], [address], [place] tel:[phone] [facility] ADD (chief complaint) anxiety1 (chief complaint) RA (chief complaint) UTI1 (chief complaint) Attention deficitGeneralized Anxiety DisorderRheumatoid arthritisDysuria Mar-0 4 [address], [address], [place], [place], [address] , [place]. tel:[phone] OFFICE/OUTPA TIENT VISIT, [facility], [address], [place], [place], [address], [place] tel:[phone] [facility] asthma1 (chief complaint) ADD (chief complaint) Attention deficitMild intermittent asthma, uncomplicated 4 Morris Morteza. [address], [address], [place], [address] , [place]. tel:[phone] OFFICE/OUTPA TIENT VISIT, [facility], [address], [place], [place], [address], [place] tel:[phone] [facility] ADD (chief complaint) edema1 (chief complaint) EdemaAttention deficit 4 [address], [address], [place], [place], [address] , [place]. tel:[phone] OFFICE/OUTPA TIENT VISIT, EST [facility], [address], [place], [place], [address], [place] tel:[phone] [facility] ADD (chief complaint) knee pain1 (chief complaint) Attention deficitPain in left knee 4 Caceres Morteza. [address], [address], [place], [place], [address] , [place]. tel:[phone] OFFICE/OUTPA TIENT VISIT, EST [facility], [address], [place], [place], [address], [place] tel:[phone] [facility] cough1 (chief complaint) knee pain1 (chief complaint) Acute bronchitisPain in left knee 4 [address], [address], [place], [place], [address] , [place]. [phone] PREV VISIT, EST, AGE [age] [facility], [address], [place], [place], [address], [place] tel:[phone] [facility] physical (chief complaint) Encounter for general adult medical exam w abnormal findingsAbnormal weight gainGeneralized Anxiety DisorderAttention deficit 4 [address], [address], [place], [place], [address] , [place]. [phone] OFFICE/OUTPA TIENT VISIT, EST [facility], [address], [place], [place], [address], [place] tel:[phone] [facility] ADD (chief complaint) weight gain1 (chief complaint) Attention deficitAbnormal weight gain 3 [address], [address], [place], [place], [address] , [place]. tel:[phone] OFFICE/OUTPA TIENT VISIT, EST [facility], [address], [place], [place], [address], [place] tel:[phone] [facility] ADD (chief complaint) anxiety1 (chief complaint) asthma1 (chief complaint) knee1 (chief complaint) Attention deficitPain in left kneeGeneralized Anxiety DisorderMild intermittent asthma, uncomplicated 3 [address], [place], [place], [address] , [place]. tel:[phone] OFFICE/OUTPA TIENT VISIT, [facility], [address], [place], [place], [address], [place] tel:[phone] [facility] ADD (chief complaint) knee pain1 (chief complaint) Pain in left kneeAttention deficit 3 [address], [address], [place], [place], [address] , [place]. tel:[phone] OFFICE/OUTPA TIENT VISIT, [facility], [address], [place], [place], [address], [place] tel:[phone] [facility] anxiety1 (chief complaint) Generalized Anxiety Disorder 3 Morris Rendon [address], [address], [place], [place], [address] , [place]. tel:[phone] OFFICE/OUTPA TIENT VISIT, [facility], [address], [place], [place], [address], [place] tel:[phone] [facility] ADD (chief complaint) RA (chief complaint) Attention deficitRheumatoid arthritis 3 [address], [address], [place], [place], [address] , [place]. tel:[phone] OFFICE/OUTPA TIENT VISIT, [facility], [address], [place], [place], [address], [place] tel:[phone] [facility] itchy rash1 (chief complaint) ADD (chief complaint) anxiety1 (chief complaint) pain1 (chief complaint) Attention deficitGeneralized Anxiety DisorderIrritant contact dermatitis, unspecified causeChronic pain syndrome 3 [address], [place], [place], [address] , [place]. tel:[phone] OFFICE/OUTPA TIENT VISIT, EST [facility], [address], [place], [place], [address], [place] tel:[phone] [facility] palpitatio n1 (chief complaint) Anxiety1 (chief complaint) arm weakness1 (chief complaint) ADD (chief complaint) Attention deficitGeneralized Anxiety DisorderOther chest painOther spondylosis, cervical region 3 [address], [address], [place], [place], [address] , [place]. tel:[phone] OFFICE/OUTPA TIENT VISIT, EST [facility], [address], [place], [place], [address], [place] tel:[phone] [facility] ADD (chief complaint) anxiety1 (chief complaint) pelvic pain1 (chief complaint) Attention deficitLower abdominal painGeneralized Anxiety Disorder 3 [address], [address], [place], [place], [address] , [place]. tel:[phone] OFFICE/OUTPA TIENT VISIT, EST [facility], [address], [place], [place], [address], [place] tel:[phone] [facility] RA (chief complaint) ADD (chief complaint) pelvic pain1 (chief complaint) RA w/ rheumatoid factorAttention deficitLower abdominal pain Dec-2 3 [address], [place], [place], [address] , [place]. tel:[phone] OFFICE/OUTPA TIENT VISIT, EST [facility], [address] [place], [address], [place] tel:[phone] [facility] joint pain1 (chief complaint) Pain in jointRA w/ rheumatoid factor Cruz- 3 [address], [place], [place], [address] , [place]. tel:[phone] PREV VISIT, EST, AGE [age] [facility], [address], [place], [place], [address], [place] tel:[phone] [facility] physical (chief complaint) Encounter for general adult medical exam w abnormal findingsTachycardia Generalized Anxiety DisorderPain in jointMild intermittent asthma, uncomplicated 3 [address], [place], [place], [address] , [place]. tel:[phone] OFFICE/OUTPA TIENT VISIT, [facility], [address], [place], [place], [address], [place] [phone] [facility] anxiety1 (chief complaint) weakness1 (chief complaint) allergy1 (chief complaint) Generalized Anxiety DisorderMuscle weaknessOther asthma 2 [address], [address], [place], [place], [address] , [place]. tel:[phone] OFFICE/OUTPA TIENT VISIT, [facility], [address], [place], [place], [address], [place] tel:[phone] [facility] anxiety1 (chief complaint) Primary insomniaPost-trauma tic stress disorder, chronic 2 [address], [address], [place], [place], [address] , [place]. [phone] OFFICE/OUTPA TIENT VISIT, [facility], [address], [place], [place], [address], [place] tel:[phone] [facility] insomnia1 (chief complaint) anxiety1 (chief complaint) tachycardi a1 (chief complaint) Primary insomniaPost-trauma tic stress disorder, chronicTachycardiaA ttention deficitGeneralized Anxiety Disorder 2 [address], [address], [place], [place], [address] , [place]. tel:[phone] OFFICE/OUTPA TIENT VISIT, [facility], [address], [place], [place], [address], [place] tel:[phone] [facility] abd pain1 (chief complaint) Abdominal painPelvic pain 2 [address], [place], [place], [address] , [place]. [phone] PREV VISIT, EST, AGE [age] [facility], [address], [place], [place], [address], [place] tel:[phone] [facility] physical (chief complaint) Encounter for general adult medical exam w abnormal findingsLeukocytosi sFlushingStriae atrophicaeNight sweatsFibromyalgiaA sthma 1 [address], [place], [place], [address] , [place]. [phone] OFFICE/OUTPA TIENT VISIT, EST [facility], [address], [place], [place], [address], [place] tel:[phone] [facility] stretch marks1 (chief complaint) hot flush1 (chief complaint) wBC (chief complaint) Striae atrophicaeAbnormal weight gainFlushingLeukocy tosisNight sweats 1 [address], [place], [place], [address] , [place]. tel:[phone] OFFICE/OUTPA TIENT VISIT, EST [facility], [address], [place], [place], [address], [place] tel:[phone] [facility] UTI1 (chief complaint) Urinary tract infection 1 [address], [place], [place], [address] , [place]. tel:[phone] OFFICE/OUTPA TIENT VISIT, EST [facility], [address], [place], [place], [address], [place] tel:[phone] [facility] plantar fascinitis 1 (chief complaint) Plantar fasciitisTarsal tunnel syndrome, right lower limb 1 Morris Rendon [address], [place], [place], [address] , [place]. [phone] OFFICE/OUTPA TIENT VISIT, [facility], [address], [place], [place], [address], [place] tel:[phone] [facility] hand pain1 (chief complaint) Hypermobility syndromePain in right wristMononeuropathy of right arm 1 Morris Rendon [address], [place], [place], [address] , [place]. [phone] OFFICE/OUTPA TIENT VISIT, [facility], [address] [place], [address], [place] tel:[phone] [facility] hip pain1 (chief complaint) weight gain1 (chief complaint) fibromyalg ia1 (chief complaint) Pain in right hipAbnormal weight gainHypermobility syndromeFibromyalgi aLeukocytosis 1 Morris Rendon [address], [place], [place], [address] , [place]. [phone] OFFICE/OUTPA TIENT VISIT, [facility], [address] [place], [address], [place] tel:[phone] [facility] wrist pain1 (chief complaint) Pain in right wristGanglion, right wrist 1 [address], [place], [place], [address] , [place]. [phone] OFFICE/OUTPA TIENT VISIT, [facility], [address], [place], [place], [address], [place] tel:[phone] [facility] wrist pain1 (chief complaint) fibromyalg ia1 (chief complaint) FibromyalgiaPain in right wristCTS of arm 1 Morris Rendon [address], [place], [place], [address] , [place]. [phone] OFFICE/OUTPA TIENT VISIT, [facility], [address] [place], [address], [place] tel:[phone] [facility] WBC (chief complaint) neuorpathy 1 (chief complaint) NeuropathyLeukocyto sis 0 [address], [place], [place], [address] , [place]. tel:[phone] PREV VISIT, EST, AGE [age] [facility], [address] [place], [address], [place] [phone] [facility] Physical (chief complaint) Encounter for general adult medical exam w abnormal findingsFibromyalgi aAlopeciaNeuropathy Headache, unspecified 0 [address], [address], [place], [place], [address] , [place]. tel:[phone] OFFICE/OUTPA TIENT VISIT, [facility], [address] [place], [address], [place] tel:[phone] [facility] kidney cyst1 (chief complaint) fibromyalg ia1 (chief complaint) neck pain1 (chief complaint) sleep apnea1 (chief complaint) FibromyalgiaProtein uriaCyst of kidney, acquiredSleep apnea 0-202 0 [address], [place], [place], [address] , [place]. tel:[phone] OFFICE/OUTPA TIENT VISIT, EST [facility], [address] [place], [address], [place] tel:[phone] [facility] sleep apnea1 (chief complaint) proteinuri a1 (chief complaint) kidney cyst1 (chief complaint) libido1 (chief complaint) Sleep apneaCyst of kidney, acquiredFibromyalgi aProteinuriaDecreas ed libido -202 0 [address], [place], [place], [address] , [place]. tel:[phone] OFFICE/OUTPA TIENT VISIT, [facility], [address] [place], [address], [place] tel:[phone] [facility] UTI1 (chief complaint) Urinary tract infection 0 [address], [place], [place], [address] , [place]. tel:[phone] OFFICE/OUTPA TIENT VISIT, [facility], [address], [place], [place], [address], [place] tel:[phone] [facility] asthma1 (chief complaint) ovary1 (chief complaint) sleep apnea1 (chief complaint) Sleep apneaAsthmaAcquired atrophy of right ovary 0 Morris [address], [place], [place], [address] , [place]. tel:[phone] OFFICE/OUTPA TIENT VISIT, [facility], [address], [place], [place], [address], [place] tel:[phone] [facility] renal cyst1 (chief complaint) Acquired atrophy of right ovaryCyst of kidney, acquired 0 [address], [place], [place], [address] , [place]. tel:[phone] Referring Provider: Morteza Caceres [address], [place], [place], [address]. tel:[phone] OFFICE/OUTPA TIENT VISIT, [facility], [address], [place], [place], [address], [place] tel:[phone] [facility] sleep apnea1 (chief complaint) wrist pain1 (chief complaint) knee pain1 (chief complaint) Sleep apneaRadial styloid tenosynovitis [de Quervain]Pain in right knee 0 [address], [place], [place], [address] , [place]. tel:[phone] Referring Provider: Nikia Martínez [address], [place], [place], [address]. tel:[phone] OFFICE/OUTPA TIENT VISIT, [facility], [address], [place], [place], [address], [place] tel:[phone] [facility] foot pain1 (chief complaint) sleep apnea1 (chief complaint) Plantar fascial fibromatosisSleep apnea Madi- 0 Morris [address], [place], [place], [address] , [place]. tel:[phone] Referring Provider: Morteza Caceres, [address], [place], [place], [address]. tel:[phone] OFFICE/OUTPA TIENT VISIT, [facility], [address], [place], [place], [address], [place] tel:[phone] [facility] right hand pain1 (chief complaint) fibromyalg ia1 (chief complaint) pelvic floor1 (chief complaint) Paresthesia of skinNeuropathyRadia l styloid tenosynovitis [de Quervain]Fibromyalg iaSegmental and somatic dysfunction of pelvic region 0 [address], [place], [place], [address] , [place]. [phone] Referring Provider: Nikia Martínez [address], [place], [place], [address]. tel:[phone] OFFICE/OUTPA TIENT VISIT, [facility], [address], [place], [place], [address], [place] tel:[phone] [facility] fatigue1 (chief complaint) facial rash1 (chief complaint) palpitatio n (chief complaint) bowel1 (chief complaint) Sleep apneaRashAcute embolism of other specified veinPalpitationsCha nge in bowel habit Dec- 0 [address], [place], [place], [address] , [place]. [phone] Referring Provider: Nikia Martínez [address], [place], [place], [address]. tel:[phone] OFFICE/OUTPA TIENT VISIT, [facility], [address], [place], [place], [address], [place] tel:[phone] [facility] fatigue1 (chief complaint) palpitatio n1 (chief complaint) fibromyalg ia1 (chief complaint) facial flushing1 (chief complaint) HTN (chief complaint) FlushingFibromyalgi aFatigueTachycardia Essential (primary) hypertension Nov-0 0 [address], [place], [place], [address] , [place]. tel:[phone] Referring Provider: Nikia Martínez [facility] A, [place], [place], [address]. tel:[phone] OFFICE/OUTPA TIENT VISIT, EST [facility], [address], [place], [place], [address], [place] tel:[phone] [facility] HIVE1 (chief complaint) renal1 (chief complaint) tachycardi a1 (chief complaint) fibromyalg ia1 (chief complaint) fatigue1 (chief complaint) FibromyalgiaTachyca rdiaRashRenal diseaseLeukocytosis Fatigue Fe-0 0 [address], [place], [place], [address] , [place]. tel:[phone] Referring Provider: Nikia Martínez [address], [place], [place], [address]. tel:[phone] PREV VISIT, EST, AGE [age] [facility], [address], [place], [place], [address], [place] tel:[phone] [facility] physical (chief complaint) Encounter for general adult medical exam w abnormal findingsAsthmaFibro myalgiaRenal diseaseTachycardiaF emale pelvic infection 201 9 Morris Rendon [address], [place], [place], [address] , [place]. tel:[phone] Referring Provider: Nikia Martínez [address], [place], [place], [address]. tel:[phone] OFFICE/OUTPA TIENT VISIT, EST [facility], [address], [place], [place], [address], [place] tel:[phone] [facility] asthma1 (chief complaint) back pain1 (chief complaint) FibromyalgiaAsthma 9 [address], [address], [place], [place], [address] , [place]. tel:[phone] Referring Provider: Nikia Martínez [address], [place], [place], [address]. tel:[phone] OFFICE/OUTPA TIENT VISIT, [facility], [address], [place], [place], [address], [place] tel:[phone] [facility] lumbago1 (chief complaint) fibromyalg ia1 (chief complaint) asthma1 (chief complaint) pelvic floor1 (chief complaint) FibromyalgiaLumbago Urinary urgencyAsthma 9 [address], [place], [place], [address] , [place]. tel:[phone] Referring Provider: Nikia Martínez [address], [place], [place], [address]. tel:[phone] OFFICE/OUTPA TIENT VISIT, [facility], [address], [place], [place], [address], [place] tel:[phone] [facility] back pain1 (chief complaint) polycythem ia1 (chief complaint) cystitis1 (chief complaint) Interstitial cystitis (chronic) without hematuriaFibromyalg iaSecondary polycythemiaLumbago 9 [address], [place], [place], [address] , [place]. tel:[phone] Referring Provider: Nikia Martínez [address], [place], [place], [address]. tel:[phone] OFFICE/OUTPA TIENT VISIT, [facility], [address], [place], [place], [address], [place] tel:[phone] [facility] UTI1 (chief complaint) fibromyalg ia1 (chief complaint) Urinary tract infectionFibromyalg ia 9 [address], [place], [place], [address] , [place]. tel:[phone] Referring Provider: Nikia Martínez [address], [place], [place], [address]. tel:[phone] PREV VISIT, EST, AGE [age] [facility], [address], [place], [place], [address], [place] tel:[phone] [facility] PHysical (chief complaint) Encntr for general adult medical exam w/o abnormal findings 9 Morris Rendon [address], [place], [place], [address] , [place]. tel:[phone] Referring Provider: Nikia Martínez [address], [place], [place], [address]. tel:[phone] OFFICE/OUTPA TIENT VISIT, EST [facility], [address], [place], [place], [address], [place] tel:[phone] [facility] fibromyalg ia1 (chief complaint) back pain1 (chief complaint) sore throat1 (chief complaint) sleep1 (chief complaint) Lumbago with sciatica, left sideFibromyalgiaPha ryngitisSleep disorder 9 [address], [place], [place], [address] , [place]. [phone] Referring Provider: Nikia Martínez [address], [place], [place], [address]. tel:[phone] OFFICE/OUTPA TIENT VISIT, EST [facility], [address], [place], [place], [address], [place] tel:[phone] [facility] back pain1 (chief complaint) fibromyalg ia1 (chief complaint) Lumbago with sciatica, left sideFibromyalgia 9 [address], [place], [place], [address] , [place]. tel:[phone] Referring Provider: Nikia Martínez [address], [place], [place], [address]. tel:[phone] OFFICE/OUTPA TIENT VISIT, [facility], [address], [place], [place], [address], [place] tel:[phone] [facility] fatigue1 (chief complaint) pain1 (chief complaint) depression 1 (chief complaint) FibromyalgiaTension headacheDepressionP ain in unspecified joint 2 9 [address], [place], [place], [address] , [place]. tel:[phone] Referring Provider: Nikia Martínez [address], [place], [place], [address]. tel:[phone] OFFICE/OUTPA TIENT VISIT, [facility], [address], [place], [place], [address], [place] tel:[phone] [facility] knee pain1 (chief complaint) asthma1 (chief complaint) palpitatio n1 (chief complaint) Pain in unspecified jointAsthmaPalpitat ions 9 [address], [place], [place], [address] , [place]. tel:[phone] Referring Provider: Nikia Martínez [address], [place], [place], [address]. tel:[phone] OFFICE/OUTPA TIENT VISIT, [facility], [address], [place], [place], [address], [place] tel:[phone] [facility] polycythem ia1 (chief complaint) sleep (chief complaint) UTi1 (chief complaint) weight gain1 (chief complaint) Secondary polycythemiaHerpes simplex infectionUrinary tract infectionAbnormal weight gain 8 [address], [place], [place], [address] , [place]. tel:[phone] Referring Provider: Nikia Martínez [address], [place], [place], [address]. tel:[phone] OFFICE/OUTPA TIENT VISIT, [facility], [address], [place], [place], [address], [place] tel:[phone] [facility] polycyther mia1 (chief complaint) vitami D (chief complaint) cardiomyop athy1 (chief complaint) back pain1 (chief complaint) InsomniaSecondary polycythemiaLumbago Vitamin D deficiency, unspecified 8 [address], [place], [place], [address] , [place]. tel:[phone] Referring Provider: Nikia Martínez [address] [facility] A, [place], [place], [address]. tel:[phone] PREV VISIT, NEW, AGE [age] [facility], [address], [place], [place], [address], [place] tel:[phone] [facility] PHysical (chief complaint) Encntr for general adult medical exam w/o abnormal findings 8 [address], [facility] A, [place], [place], [address] , [place]. tel:[phone] Referring Provider: Nikia Martínez [address] [facility] A, [place], [place], [address]. tel:[phone] Family History Family Member Type Diagnosis Age [...] Referred To: Darby Bangura MD [address] [facility]
[address] [place], [place], [id number] Ordered: Referrals: Darby Bangura MD. Evaluate and treat ordered Referral Ordered: US SOFT TISSUE CHEST ordered Referral Referred To: Jose F Gerardo MD [address] [facility]
[address] [place], [place], [phone] Ordered: Referrals: Jose F Gerardo MD. Evaluate [...] -Podiatric Medicine & Surgery Service Providers : Placement Coordinator (related to Plantar fascial fibromatosis) ordered Referral Referred To: LORRAINE VALLEJO [address] [place] [address],[address] [place], [place], [phone] Ordered: Referrals: Podiatric Medicine & Surgery Service Providers : Placement Coordinator. LORRAINE VALLEJO. Evaluate and treat ordered Referral Ordered: SENSE NERVE CONDUCTION TEST ordered Referral Ordered: Raciel Weber -Allopathic & Osteopathic Physicians : Internal Medicine : Rheumatology (related to Rash) ordered Referral Referred To: Raciel Weber [address] [facility]
Professional Office [address] [place], [address] Ordered: Referrals: Allopathic & Osteopathic Physicians : [...] and doing ok Pt needs Vyvanse refilled. shoulder pain1 Pt c/o left ante rior [...] a while. Pt has been out of [facility] for a while and she wants to see a different wire brush operator for 2nd opinion Pt does have [...] a while. Pt has been out of [facility] for a while and she wants to see a different wire brush operator for 2nd opinion Pt does have [...] appetite loss. knee pain1 Pt fell off [employer] and landed on left knee 24 hours [...] strong enough. Pt denies any side effects pelvic pain1 Pt c/o left lowe r pelvic pain for several days .Pt actually had right lower quadrant pain 3 months ago and she went to [facility] ER and had CT done which [...] appetite loss or right side abd pain ADD Pt has ADD, inat tentive type. her psychiatrist started her on adderall last year but caused some insomnia Pt is studying for exam now and she feels poorly focused and she wants to try adderall again. RA Pt has diffuse j oint pain and fibromyalgia. Pt has positive RA factor Pt saw rheumatology who did some lab and told her she may have RA and will start her on methotrexate. Pt has not been taking mobic and she is doing ok joint pain1 Pt has diffuse j oint [...] flank pain Pt did have woodrow with ONLINE CONTENT EDITOR but was canceled. Pt denies any trigger [...] wrist is hyper mobile. Pt did see wire brush operator and also card hanger about mirta danlos syndrome which were negative also Pt states that right wrist pain is worse and she went to urgent care and was told to check for RA. which was all negative by rheumatology check and myself during last two years. fibromyalgia1 Pt has fibromyal fabricio. Pt sees pain management for back injection Pt denies any neuropathy symptoms. Pt denies any leg numbness or tingling Pt wants to wean off lyrica. Pt still taking amitriptyline 10 mg nightly and her pain is doing ok. hip pain1 Pt was having se x [...] thinks that it is due to lyrica. wrist pain1 Pt c/o right wri st [...] states that her pain seems getting worse. neuorpathy1 pt has vague salina ropathy symptoms and headache. Pt has fibromyalgia. Pt had MRi of brain done which was normal .Pt states that lyrica is really helping her symptoms and she had not had any headache and her neuropathy symptoms also improving. WBC Pt has mildly hi gh WBC Pt denies any fever or illness. Physical pt needs annual physical Pt has [...] during shower. 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 Pt is seeing ENt/sleep and she had CPAP study done Pt had to return her APAP due to noncompliance and ENT is trying to get her a CPAP. Pt still feels fatigue kidney cyst1 Pt has a benign appearing [...] decrease sex drive with higher dose . proteinuria1 Pt has mild prot einuria on recent UA. 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 Pt is seeing home and school visitor at [facility] now and was told renal lab improving now Pt actually has woodrow with revenue agent at [facility] in October Pt denies any pelvic [...] have heavy bleeding in the past . back pain1 Pt has not had m uch low back pain but she notices some sciatica and upper leg numbness during last month Pt states that flexeril does not help. Pt denies any loss of bladder control. Pt only notices above when she does physical work cardiomyopathy1 Pt has family hi story of cardiomyopathy at early age. Pt seen cardiology two years ago due to palpitation. Pt told me she had cardiac echo done two years ago. Pt had negative work up. Pt has not had any more palpitation since stopping. caffeine/ pt denies any chest pain. polycythermia1 Pt has polycythe leann. Pt hernández not smoke. Pt has normal iron. Pt states that he does have insomnia and also feels tired in the morning and rest of the day. pt does not snore per patient. vitami D Pt has low vitam i D PHysical Pt needs annual physical. Pt states [...] to Lum bago with sciatica, left side Weight management Related to Lum bago with sciatica, left side Increase physical activity Relat ed to Lumbago with sciatica, left side Medications as instructed [...] Mental Status Date Cognitive Assessment Orientation - Pickens ed to time, place, person, situation.
--- OUTSIDE RECORDS SUMMARY | 2025-05-06 11:25 | XMS_ITS | Continuity of Care Document ---
Author Organization [employer] [place] Address [address] [place] [address] [address] [place] [address] Phone Care Team Providers Care Curriculum Coordinator Name Role Phone Yevgeniy CRUZ/Ellen Keith CHT Unavailable Erica vailable Procedures Procedure Date Orthotic Mgmt and Training Wrist & Thumb Forearm based opponens Mar Advance Directives Directive Yes / No Effective Date File Name No Information Encounters Encounter Description Practice Location Reason(s) For Visit Diagnoses Date Provider Providers Copied on Encounter [facility], [address] [place], [place] [address], [place], [place], [id number], tel:[phone] [place] No Information 0 Yevgeniy Hughes. [address] [facility], [address], [place], [address], . tel:[phone] Referring Provider: Morteza Caceres, [address] [facility] [address], [place], [address]. tel:[phone] Family History Family Member Type Diagnosis Age At Onset No Information Payers Payer name Insurance type Covered libertarian ID Authoriza tion(s) [facility] [id number] Social History Type Description Quantity Date Captured [...]
--- OUTSIDE RECORDS SUMMARY | 2025-05-06 11:25 | XMS_ITS ---
Author Organization [facility] Address [address] [place], [place] [id number] Care Team Providers Care Director Veterinary Name Role Phone DAXA LOZA Unavailable [phone] Morteza Caceres Unavailable Unavailable Allergies Allergen (clinical [...] Date Provider Diagnosis [facility] [address] [place], [place] [id number] 04/17/2025 DAXA LOZA Ingrowing nail L60.0 ; [...] MCKINNEY, 05/11/2025 07:40:00 AM, [address], [address], [id number], Provider Name:DAXA MCKINNEY, 06/16/2025 07:30:00 AM, [address] [place], [place], [id number], Provider Name:DAXA MCKINNEY, 06/22/2025 07:30:00 AM, [address], [facility], [place], [place], [id number], Progress Notes * DARRYL DONATODOB:1995 ( 30 yo F)Acc No.[id number]:04/17/2025 Patient: DARRYL HIDALGO Provider: Max Loza DPM :1995 A ge:30 Y S ex:Female Date:04/17/2025 Address:[address] [place], [place] [id number] Subjective: * Chief Complaints: * 1 . [...] devices. * Billing Information: * Visit Code: 25788 Office Visit, Est Pt., Level 4. * Procedure Codes: * Electronic signature of DAXA LOZA DPM on 05/06/2025 at 11:24 AM CDT Sign off status: Pending * Provider: Max Loza DPM Date: 04/17/2025 Generated for Hiram jacome/Dave/Tyler on: 0 05/06/2025 11:24 AM CDT History and Physical Notes * HPI [...]
--- OUTSIDE RECORDS SUMMARY | 2025-05-06 11:25 | XMS_ITS | Clinical Summary ---
Author Organization [facility] Address [address] [facility] [place] [address] Care Team Providers Care Forestry Farm Laborer Name Role Phone Morteza Caceres MD Primary Care Provider [phone] Source Comments [facility],non-owned Affiliates and Associated Physician Practices is amultiple site organization consisting of ambulatory clinics and hospital sitesin [place], [place], [place] and [place]. This disclosure is being madepursuant to the Care Everywhere program and may not contain all information available regarding this patient. Last updated 18.[facility] Allergies Active Allergy Reactions Criticality Noted Date [...] () 12/07/2015 Supervision of high risk in [facility] 12/07/2015 Immunizations Immunization Administration Dates Next Due INFLUENZA VACCINE, QUADR. 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
--- OUTSIDE RECORDS SUMMARY | 2025-05-06 11:25 | XMS_ITS | Clinical Summary ---
Author Organization [facility] Care Team Providers Care Recycling Program Manager Name Role Phone Morteza Caceres MD Primary Care Provider [phone] Malcom Church MD Unavailable [phone] Allergies Active Allergy Reactions Criticality Noted Date [...] Mushroom Hives Medium 09/03/2019 When she touches [place] Unknown 10/12/2023 Allergy testing Sulfa (Sulfonamide Antibiotics) [...] (12/23/2021): Added automatically from request for surgery [id number] Right wrist tendinitis 04/10/2021 Right carpal tunnel syndrome 03/04/2021 Arthritis of carpometacarpal (CMC) joint of righ t thumb 12/26/2020 Right wrist pain 11/21/2020 Rash 11/30/2019 Postprocedural intraabdominal abscess 11/03/2019 Assessment & Plan (11/03/2019 2:42 PM DIAL REFINISHER): Abscess previously drained at [facility]SH where she [...] 09/04/201908/29 Assessment & Plan (09/04/2019 5:48 PM DIAL REFINISHER): Ms. Soledad Donato is a 24 year [...] 09/22/2019 Assessment & Plan (09/04/2019 5:49 PM DIAL REFINISHER): Would recommend routine testing for STDs (patient [...] Team Description 04/19/2025 3:45 PM CDT Lab [facility] [address] [place] [address] 02/10/2025 10:28 AM CDT - 02/10/2025 11:59 PM CDT Hospital Encounter [facility] Radiology at [facility] [address] [place] [address] Cervical pain Discharge Disposition: Discharge to home or self care 02/10/2025 10:15 AM CDT Office Visit [facility] Orthopaedic Surgery [address] [facility] 1st Floor [address] [place] [address] Keegan Farrell MD Cervical pain (Primary Dx); [...] on file Legal Sex Female 9:19 PM DIAL REFINISHER Gender Identity Female 03/13/2020 3:02 PM CDT [...] Comments Blood Pressure 113/79 10/31/2024 7:48 AM DIAL REFINISHER Pulse 95 10/31/2024 7:48 AM DIAL REFINISHER Temperature 36.6 C (97.8 F) 10/31/2024 7:48 AM DIAL REFINISHER Respiratory Rate 16 08/11/2024 2:12 PM DIAL REFINISHER Oxygen Saturation 99% 10/31/2024 7:48 AM DIAL REFINISHER Inhaled Oxygen Concentration - - Weight 66.5 [...] history exists Medical Devices Implanted Type Area Talent Development Coordinator Device Identifier Shelf Expiration Date Model / Serial / Lot [employer] System Fixation Meniscal Reverse Curved Bend Tool Fast Fix Flex [id number] - [id number] Implanted:Qty: 1 on 10/19/2023 by Shant Jin MD at [facility] [place] Left: Knee [employer] 06/11/2026 [id number] / / [id number] [employer] System Fixation Meniscal Reverse Curved Bend Tool Fast Fix Flex [id number] - [id number] Implanted:Qty: 1 on 10/19/2023 by Shant Jin MD at [facility] [place] Left: Knee [employer] 06/11/2026 [id number] / / [id number] Procedures Procedure Name Priority Date/Time Associated Diagnosis Comments ESTRADIOL Routine 04/19/2025 3:55 PM CDT FOLLICLE STIMULATING HORMONE Routine 04/19/2025 3:55 PM CDT TSH Routine 04/19/2025 3:55 PM CDT BLOOD MISC TO SEDGWICK Routine 04/19/2025 3: 48 PM CDT XR [...] was last revised 2024. Testing performed by: [facility], [address] [place]., [address] Blood 04/19/2025 3:55 PM CDT 04/19/2025 7:10 PM CDT Jace Higginbotham MD LAB BLOOD ORDERABLES Karmen l Result [facility] ([place]IND[facility]) [address] [place] [address] [place] [address] * TSH (04/19/2025 3:55 PM CDT) Thyroid Stimulating Hormone 0.98 0.30 - 4.20 mcIUnit/mL [facility] Blood 04/19/2025 3:55 PM CDT 04/19/2025 3:59 PM CDT Jace Higginbotham MD LAB BLOOD ORDERABLES Karmen l Result [facility] ([place]) [address] [place] [address] * Follicle stimulating hormone (04/19/2025 3:55 PM CDT) FSH 8.4 IUnits/L Comment: Interpretive Data Male: Adults: 1.5 - 12.4 IUnits/L Female: Follicular: 3.5 - 12.5 IUnits/L Ovulation: 4.7 - 21.5 IUnits/L Luteal: 1.7 - 7.7 IUnits/L Postmenopausal: 25.8 - 134.8 IUnits/L Current interpretive data was last revised 2015. Testing performed by: [facility], [address] [place]., [address] Blood 04/19/2025 3:55 PM CDT 04/19/2025 7:10 PM CDT us Jace Higginbotham MD LAB BLOOD ORDERABLES Karmen gallardo Result [facility] ([place]INDEN) [address] [facility] Department [place] [employer] [address] * BLOOD MISC TO SEDGWICK (04/19/2025 3:48 PM CDT) Test name, chem FFTFT Testosterone Free and Total [place] ref [facility] Misc See Comment [facility] (LINDEN) Comment: Test Result Flag Unit RefValue Testosterone Free and Total Testosterone, Total, [place] 14 ng/dL 2-45 For additional information, please refer to http://education.Zafu.[employer]/faq/TotalTestosteroneL CMSMS (This link is being provided for informational/educational purposes only.) Testosterone, Free, (Dialysis) 1.7 pg/mL 0.1-6.4 This test was developed and its analytical performance characteristics have been determined by [facility]. It has not been cleared or approved by the FDA. This assay has been validated pursuant to the CLIA regulations and is used for clinical purposes. Test Performed by: [facility] [address] [place] [address] Blood 04/19/2025 3:48 PM CDT 04/20/2025 12:32 PM CDT Narrative [facility] ([place]) - 04/28/2025 10:23 PM CDT FFTFT Testosterone Free and Total us Jace Higginbotham MD LAB BLOOD ORDERABLES Karmen sami Result [facility] ([place]INDEN) [address] [facility] Department [place] [address] [place] ref [facility] * XR Spine Cervical Complete 4 or [...] by: Willa Jimenez MD Keegan Farrell MD IM XR PROCEDURES Final Res ult * Hepatitis [...] a test for HCV RNA (test code 56030) is suggested. For additional information please refer to http://education.[employer]/faq/VCT04m8 (This link is being provided for informational/ educational purposes only.) Blood specimen (specimen) 03/07/2020 11:12 AM CDT 03/07/2020 11:13 AM CDT Narrative [facility] - 03/13/2020 11:54 PM CDT FASTING:YES FASTING: YES us Marilou Diamond MD LAB MICROBIOLOGY - GENERAL ORDERABLES Final Result [facility] [address] [place] [address] from Last 3 Months or Most Recently Relevant to Health Maintenance Insurance [employer] [place] [employer] [place] [employer] CHOICE [place] Advance Directives For more information, please contact: [phone] * Full Code (Latest Code Status on File) Date Activated Date Inactivated Comments 09/03/2019 5:55 PM 09/09/2019 7:01 PM Care Teams Recycling Program Manager Relationship Specialty Start Date End Date Morteza Caceres MD [address] [place] [address] PCP - General 09/03/19 Malcom Church MD [address] [place] [address] Consulting Physician Cardiology 06/26/21
== END 2025-05-06 11:23 | disposition home or self-care (01) ==
LOC: ANHLAB 11:23
PROVIDERS: Visit Provider Obstetrics & Gynecology
DX: N83.209 Unspecified ovarian cyst, unspecified side (principal)
CPT/HCPCS: 36415; 86850; 86900; 86901

== ENCOUNTER 2025-05-12 06:48 | Day surgery (SDC) | payer BC, SELFPAY ==
[2025-05-04 13:28] VITALS: BMI 24.4
--- NOTE | 2025-05-04 13:39 | PC.NURSE ---
Report to the Outpatient Waiting Room, entrance under the green pavilion located off [facility], at time _0730_ on date _[id number]_. Planned Procedure Time: _0930_.? Time changes happen often and if your time is changed the preop area will call you the afternoon before. - You and your visitor will be asked to self-screen and do not enter if you have any COVID symptoms. Please call surgeon if you need to reschedule. - A mask is optional within the hospital at this time. Patients may have clear liquids (water, carbonated beverages, clear teas, apple juice) until 3 hours prior to surgery with a maximum of 20 ounces. - No food from midnight until time of surgery and no smoking, or chewing tobacco (or any form of nicotine). No chewing gum, candy or mints. Take only the following medications with a SIP of water on the morning of surgery: __Diltiazem, Bupropion and Sertraline DO NOT STOP ANY OF YOUR OTHER PRESCRIPTION MEDICATIONS PRIOR TO SURGERY EXCEPT THE FOLLOWING Hold all vitamins and supplements for 3 days per anesthesiologist. Medications to discontinue per physician Date to take last dose Please no make-up, nail british virgin islander, hairspray, perfume, deodorant, or body powder the day of surgery.? No jewelry (including any body piercings) or valuables the day of surgery, leave them at home.? Please take a shower or bath the night before, or the morning of, surgery with an antibacterial soap.? Wear comfortable, loose fitting clothing.? - Jewelry must be removed prior to entering the operating room.? Rings and piercings that are not removed may be cut off. - The hospital will not accept responsibility for valuables.? - Please leave all valuables, including medications, at home the day of surgery. If you are going home after surgery, a licensed hack driver must drive you home.? - NO public transportation without another adult if you receive anesthesia. - We recommend that an adult stay with you for 24 hours following discharge. - We also recommend that you do not drive, make important decision, drink alcoholic beverages, or take any drugs that were not prescribed by your health care provider for at least 24 hours after your discharge time. Follow any additional instructions given to you from your surgeon. Telephone instructions given to __Mary__and asked if any additional questions and then verbalized understanding. Patient advised to call surgeon office or pre surgery nurse liaison [phone] if any additional questions.
--- NOTE | 2025-05-11 06:28 | P.HP_ITS ---
H&P: HPI History of Present Illness Date/Time: 05/11/25 06:28 Chief Complaint: Pelvic pain and left ovarian cyst Narrative: 30-year-old female with complex left ovarian cyst for laparoscopic left ovarian cystectomy and salpingectomy risks and benefits reviewed including but not exclusive of , aspiration pneumonia, bleeding, transfusion, perforation injury to bowel, bladder, ureters, or other internal organs with need for open laparotomy. She received the [facility] handout entitled laparoscopy. She had all questions answered to her satisfaction. Review of Systems Review of Systems: All systems reviewed & are unremarkable except as noted in HPI. All systems reviewed & are unremarkable except as noted in HPI and below PMFSH Past Medical History Medical History Acute vaginitis Vaginal delivery x1 Anxiety and depression Sacroiliitis Spinal stenosis Scoliosis IBS (irritable bowel syndrome) Arthritis Tachycardia Thrombus Fibromyalgia Asthma PID (pelvic inflammatory disease) Surgical History Surgical History History of bilateral salpingectomy 2018 History of laparoscopy x2, exploratory surgery looking for endometriosis Talent teeth extracted History of back surgery 2019, Ablation History of ankle surgery 2020 History of endometrial ablation Hx of section X2 History of dilation and curettage History of hysterectomy 08/18/2019 Family History Family History Father Acute myocardial infarction Heart problem Mother Heart disease Alcoholism Grandparent Cancer either cervical or uterine Social History Social History Smoking status: Never smoker Alcohol intake: never Substance use: never Substance use type: marijuana Living arrangements: with family Occupation/Education: other 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tion (if Verbalized by the Patient): Straight or Heterosexual Spiritual care concerns: No Agree to blood products: Yes Meds Home Medications and Allergies Home Medications ?Medication ?Instructions ?Recorded ?Confirmed ?Type bupropion HCl 150 mg 24 hr tablet, 150 mg PO DAILY 12/19/21 05/04/25 History extended release diltiazem HCl 120 mg 120 mg PO DAILY 12/19/21 05/04/25 History capsule,extended release 24 hr fluconazole 150 mg tablet 150 mg PO ONCE #2 tabs 12/19/21 05/04/25 Rx (Diflucan) montelukast 10 mg tablet 10 mg PO HS 12/19/21 05/04/25 History (Singulair) cetirizine 10 mg tablet (24Hour 10 mg PO DAILY 05/04/25 05/04/25 History Allergy) sertraline 50 mg tablet 50 mg PO DAILY 05/04/25 05/04/25 History Allergies Allergy/AdvReac Type Severity Reaction Status Date / Time adhesive tape Allergy Severe BLISTERS Verified 05/04/25 13:26 ammonia Allergy Severe Anaphylaxis Verified 05/04/25 13:26 latex Allergy Severe RASH, Verified 05/04/25 13:26 swelling mold Allergy Severe Dyspnea / Verified 05/04/25 13:26 SOB tioconazole (From Monistat 1 Allergy Severe vaginal Verified 05/04/25 13:26 (tioconazole)) swelling metronidazole Allergy Intermediate RASH, hives Verified 05/04/25 13:26 Sulfa (Sulfonamide Allergy Unknown Unknown Verified 05/04/25 13:26 Antibiotics) tumeric Allergy Severe Swelling, Uncoded 05/04/25 13:26 rash mildew AdvReac Unknown trouble Uncoded 05/04/25 13:26 breathing Exam Const: General: cooperative, healthy appearing, comfortable and overweight Orientation/consciousness: oriented to person, oriented to place and oriented to time HENMT: Head: normal to inspection Resp: Effort & Inspection: normal respiratory effort Cardio: Rate: regular rate Rhythm: regular rhythm Heart sounds: S1 normal heart sound present and S2 normal heart sound present GI: Inspection: normal to inspection : External Female Exam: normal external appearance Speculum Exam - Vagina: normal appearance of the vagina Speculum Exam - Cervix: normal appearance of the cervix Bimanual exam- vagina & uterus: non-tender Bimanual Exam- Adnexa, other: Adnexal mass present on the left tender Assessment and Plan Assessment and plan (1) Left ovarian cyst: Code(s): N83.202 - Unspecified ovarian cyst, left side Status: Acute Plan Proceed with left salpingo-oophorectomy
--- NOTE | 2025-05-11 14:32 | WPDANESEPPF ---
Anes - Initial Pre Proc Eval Procedure: Operation Date: 05/12/25 09:30 Proposed Procedures p Laparoscopic Left Salpingo-Oophorectomy - Jace Higginbotham MD Date/Time: 05/11/25 14:32 Surgeon: Jace Higginbotham MD Pre Op Diagnosis: left ovarian cyst, pelvic pain Patient Data Age: 30 Gender: F Height: 1.63 m Weight: 64.5 kg Allergies Allergy/AdvReac Type Severity Reaction Status Date / Time adhesive tape Allergy Severe BLISTERS Verified 05/12/25 08:19 ammonia Allergy Severe Anaphylaxis Verified 05/12/25 08:19 latex Allergy Severe RASH, Verified 05/12/25 08:19 swelling mold Allergy Severe Dyspnea / Verified 05/12/25 08:19 SOB tioconazole (From Monistat 1 Allergy Severe vaginal Verified 05/12/25 08:19 (tioconazole)) swelling metronidazole Allergy Intermediate RASH, hives Verified 05/12/25 08:19 Sulfa (Sulfonamide Allergy Unknown Unknown Verified 05/12/25 08:19 Antibiotics) tumeric Allergy Severe Swelling, Uncoded 05/12/25 08:19 rash mildew AdvReac Unknown trouble Uncoded 05/12/25 08:19 breathing Home Medications ?Medication ?Instructions ?Recorded ?Confirmed ?Type bupropion HCl 150 mg 24 hr tablet, 150 mg PO DAILY 12/19/21 05/12/25 History extended release diltiazem HCl 120 mg 120 mg PO DAILY 12/19/21 05/12/25 History capsule,extended release 24 hr fluconazole 150 mg tablet 150 mg PO ONCE #2 tabs 12/19/21 05/04/25 Rx (Diflucan) montelukast 10 mg tablet 10 mg PO HS 12/19/21 05/04/25 History (Singulair) cetirizine 10 mg tablet (24Hour 10 mg PO DAILY 05/04/25 05/04/25 History Allergy) sertraline 50 mg tablet 50 mg PO DAILY 05/04/25 05/12/25 History hydrocodone 5 mg-acetaminophen 325 1 tablet PO Q4H PRN pain #14 tabs 05/12/25 Rx mg tablet Patient hx anesthesia problems: none Family hx anesthesia problems: none Results Review: All pre-operative results and documents have been reviewed as part of the pre-operative evaluation. [facility] Past Medical History Medical History (Updated 05/12/25 @ 07:20 by Kodak Phillip DO) PTSD (post-traumatic stress disorder) DVT (deep venous thrombosis) Acute vaginitis Vaginal delivery x1 Anxiety and depression Sacroiliitis Spinal stenosis Scoliosis IBS (irritable bowel syndrome) Arthritis Tachycardia Thrombus Asthma PID (pelvic inflammatory disease) Surgical History Surgical History History of bilateral salpingectomy 2018 History of laparoscopy x2, exploratory surgery looking for endometriosis [place] teeth extracted History of back surgery 2019, Ablation History of ankle surgery 2020 History of endometrial ablation Hx of section X2 History of dilation and curettage History of hysterectomy 08/18/2019 Family History Family History Father Acute myocardial infarction Heart problem Mother Heart disease Alcoholism Grandparent Cancer either cervical or uterine Social History Social History Smoking status: Never smoker Alcohol intake: never Substance use: never Substance use type: marijuana Living arrangements: with family Occupation/Education: other 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tion (if Verbalized by the Patient): Straight or Heterosexual Spiritual care concerns: No Agree to blood products: Yes Anes - Eval Final PreProcedure Day of Procedure 05/11/25 14:32 Patient weight: normal Heart: regular rate and rhythm Lungs: clear to auscultation Airway: Mallampati scale class II Neurological: alert and oriented Last oral intake: >/= 8 hours ASA classification: II Emergent: no Anesthetic plan: proceed Anesthesia type and monitoring: general ETT and standard monitoring Results Review: All pre-operative results and documents have been reviewed as part of the pre-operative evaluation. Informed Consent: The patient's anesthetic plan and its attendant risks and benefits were discussed with the patient/family/POA. Questions were solicited and answers provided to the satisfaction of the patient/family/POA.
[2025-05-12] VITALS (9 sets, daily range): BP systolic 97–126; BP diastolic 60–85; PULSE 61–99; RESP 14–16; TEMP 36.2–36.8; O2SAT 95–100
--- NOTE | 2025-05-12 06:24 | WPDHPUPDATE1 ---
History and Physical Update Update Date/Time: 05/12/25 06:24 History and Physical has been reviewed, including an updated exam of the patient. There are NO changes in the patient's condition. Risks, benefits, and alternatives have been discussed and questions answered. Patient agrees to proceed with procedure.
--- OUTSIDE RECORDS SUMMARY | 2025-05-12 06:50 | XMS_ITS | Clinical Summary ---
Author Organization [facility] Care Team Providers Care Appeals Manager Name Role Phone Morteza Caceres MD Primary Care Provider [phone] Malcom Church MD Unavailable [phone] Allergies Active Allergy Reactions Criticality Noted Date [...] Mushroom Hives Medium 09/03/2019 When she touches [place] Unknown 10/12/2023 Allergy testing Sulfa (Sulfonamide Antibiotics) [...] (12/23/2021): Added automatically from request for surgery [id number] Right wrist tendinitis 04/10/2021 Right carpal tunnel syndrome 03/04/2021 Arthritis of carpometacarpal (CMC) joint of righ t thumb 12/26/2020 Right wrist pain 11/21/2020 Rash 11/30/2019 Postprocedural intraabdominal abscess 11/03/2019 Assessment & Plan (11/03/2019 2:42 PM SLOT SUPERVISOR): Abscess previously drained at OSH where she [...] 09/04/201908/29 Assessment & Plan (09/04/2019 5:48 PM SLOT SUPERVISOR): Ms. Soledad Donato is a 24 year [...] 09/22/2019 Assessment & Plan (09/04/2019 5:49 PM SLOT SUPERVISOR): Would recommend routine testing for STDs (patient [...] Team Description 04/19/2025 3:45 PM CDT Lab [facility] [address] [place] [address] 02/10/2025 10:28 AM CDT - 02/10/2025 11:59 PM CDT Hospital Encounter [facility] Radiology at [facility] [address] [place] [address] Cervical pain Discharge Disposition: Discharge to home or self care 02/10/2025 10:15 AM CDT Office Visit [facility] Orthopaedic Surgery [address] [place] [address] Keegan Farrell MD Cervical pain (Primary Dx); [...] on file Legal Sex Female 9:19 PM SLOT SUPERVISOR Gender Identity Female 03/13/2020 3:02 PM CDT [...] Comments Blood Pressure 113/79 10/31/2024 7:48 AM SLOT SUPERVISOR Pulse 95 10/31/2024 7:48 AM SLOT SUPERVISOR Temperature 36.6 C (97.8 F) 10/31/2024 7:48 AM SLOT SUPERVISOR Respiratory Rate 16 08/11/2024 2:12 PM SLOT SUPERVISOR Oxygen Saturation 99% 10/31/2024 7:48 AM SLOT SUPERVISOR Inhaled Oxygen Concentration - - Weight 66.5 [...] history exists Medical Devices Implanted Type Area Outreach Librarian Device Identifier Shelf Expiration Date Model / Serial / Lot [employer] System Fixation Meniscal Reverse Curved Bend Tool Fast Fix Flex [id number] - [id number] Implanted:Qty: 1 on 10/19/2023 by Shant Jin MD at [facility] Orthopedic [place] Left: Knee [employer] 06/11/2026 [id number] / / [id number] [employer] Endoscopy System Fixation Meniscal Reverse Curved Bend Tool Fast Fix Flex [id number] - [id number] Implanted:Qty: 1 on 10/19/2023 by Shant Jin MD at [facility] Orthopedic [place] Left: Knee [employer] End[employer] 06/11/2026 [id number] / / [id number] Procedures Procedure Name Priority Date/Time Associated Diagnosis Comments ESTRADIOL Routine 04/19/2025 3:55 PM CDT FOLLICLE STIMULATING HORMONE Routine 04/19/2025 3:55 PM CDT TSH Routine 04/19/2025 3:55 PM CDT BLOOD MISC TO VIOLA Routine 04/19/2025 3: 48 PM CDT XR [...] performed by: [facility], [address] [place]., [address] Blood 04/19/2025 3:55 PM CDT 04/19/2025 7:10 PM CDT Jace Higginbotham MD LAB BLOOD ORDERABLES Karmen l Result [facility] ([place]) [address] [place] [address] [place] [address] * TSH (04/19/2025 3:55 PM CDT) Thyroid Stimulating Hormone 0.98 0.30 - 4.20 mcIUnit/mL [facility] Blood 04/19/2025 3:55 PM CDT 04/19/2025 3:59 PM CDT Jace Higginbotham MD LAB BLOOD ORDERABLES Karmen l Result [facility] ([place]) [address] [place] [address] * Follicle stimulating hormone (04/19/2025 3:55 PM CDT) FSH 8.4 IUnits/L Comment: Interpretive Data Male: Adults: 1.5 - 12.4 IUnits/L Female: Follicular: 3.5 - 12.5 IUnits/L Ovulation: 4.7 - 21.5 IUnits/L Luteal: 1.7 - 7.7 IUnits/L Postmenopausal: 25.8 - 134.8 IUnits/L Current interpretive data was last revised 2015. Testing performed by: [facility], [address] [place]., [address] Blood 04/19/2025 3:55 PM CDT 04/19/2025 7:10 PM CDT us Jace Higginbotham MD LAB BLOOD ORDERABLES Karmen gallardo Result [facility] ([place]) [address] [facility] Department [place] [employer] [place] [address] * BLOOD MISC TO VIOLA (04/19/2025 3:48 PM CDT) Test name, chem FFTFT Testosterone Free and Total [facility] ref [facility] Misc See Comment [facility] ([place]) Comment: Test Result Flag Unit RefValue Testosterone Free and Total Testosterone, Total, MS 14 ng/dL 2-45 For additional information, please refer to http://education.RevTrax.too.me/faq/TotalTestosteroneL CMSMS (This link is being provided for informational/educational purposes only.) Testosterone, Free, (Dialysis) 1.7 pg/mL 0.1-6.4 This test was developed and its analytical performance characteristics have been determined by [employer]. It has not been cleared or approved by the FDA. This assay has been validated pursuant to the CLIA regulations and is used for clinical purposes. Test Performed by: [facility] [address] [place] [address] Blood 04/19/2025 3:48 PM CDT 04/20/2025 12:32 PM CDT Narrative [facility] ([place]) - 04/28/2025 10:23 PM CDT FFTFT Testosterone Free and Total us Jace Higginbotham MD LAB BLOOD ORDERABLES Karmen sami Result [facility] ([place]) [address] [facility] Department [place] [address] [facility] * XR Spine Cervical Complete [...] a test for HCV RNA (test code 11528) is suggested. For additional information please refer to http://education.Chikka/faq/KQQ77f9 (This link is being provided for informational/ educational purposes only.) Blood specimen (specimen) 03/07/2020 11:12 AM CDT 03/07/2020 11:13 AM CDT Narrative [facility] - 03/13/2020 11:54 PM CDT FASTING:YES FASTING: YES us Marilou Diamond MD LAB MICROBIOLOGY - GENERAL ORDERABLES Final Result [facility] [address] [place] [address] from Last 3 Months or Most Recently Relevant to Health Maintenance Insurance [place] [employer] [place] Advance Directives For more information, please contact: [phone] * Full Code (Latest Code Status on File) Date Activated Date Inactivated Comments 09/03/2019 5:55 PM 09/09/2019 7:01 PM Care Teams Appeals Manager Relationship Specialty Start Date End Date Morteza Caceres MD [address] [place] [address] PCP - General 09/03/19 Malcom Church MD [address] [place] [address] Consulting Physician Cardiology 06/26/21
--- OUTSIDE RECORDS SUMMARY | 2025-05-12 06:50 | XMS_ITS | Clinical Summary ---
Author Organization [facility] Address [address] [place] [address] Phone Care Team Providers Care Hematology Technician Name Role Phone Morteza Caceres Primary Care Provider [phone] Allergies Active Allergy Reactions Criticality Noted Date [...] age to complete this topic Care Teams Hematology Technician Relationship Specialty Start Date End Date Morteza Caceres [address] [place] [address] (work) PCP - General Family Medicine 01/11/18
--- OUTSIDE RECORDS SUMMARY | 2025-05-12 06:50 | XMS_ITS ---
Author Organization [facility] Address [address] [place], [place] [address] Care Team Providers Care Safety Specialist Name Role Phone DAXA LOZA Unavailable [phone] Morteza Caceres Unavailable Unavailable Allergies Allergen (clinical [...] Date Provider Diagnosis [facility] [address] [place], [place] [id number] 04/17/2025 DAXA LOZA Ingrowing nail L60.0 ; [...] devices. Next Appt Details Provider Name:DAXA MCKINNEY, 06/16/2025 07:30:00 AM, [address] [place], [place], [id number], Provider Name:DAXA MCKINNEY, 06/22/2025 07:30:00 AM, [address], [address], [id number], Progress Notes * GUALBERTO DONATO:1995 ( 30 yo F)Acc No.[id number]:04/17/2025 Patient: DARRYL HIDALGO Provider: Max Loza DPM :1995 A ge:30 Y S ex:Female Date:04/17/2025 Address:[address] [place] [address] [facility] Subjective: * Chief Complaints: * 1 . *Possible ingrown nail. * HPI: H PI: Follow Up Visit P luisa presents for follow up visit for an [...] devices. * Billing Information: * Visit Code: 29539 Office Visit, Est Pt., Level 4. * Procedure Codes: * Electronic signature of DAXA LOZA DPM on 05/12/2025 at 06:49 AM CDT Sign off status: Pending * Provider: Max Loza DPM Date: 0 04/17/2025 Generated for Hiram jacome/Dave/Tyler on: 0 05/12/2025 06:49 AM CDT History and Physical Notes * [...]
--- OUTSIDE RECORDS SUMMARY | 2025-05-12 06:50 | XMS_ITS | Clinical Summary ---
Author Organization [facility] Address [address] [facility] [place] [address] Care Team Providers Care Cigar Making Machine Operator Name Role Phone Morteza Caceres MD Primary Care Provider [phone] Source Comments [facility],non-owned Affiliates and Associated Physician Practices is amultiple site organization consisting of ambulatory clinics and hospital sitesin [place], [place], [place] and [place]. This disclosure is being madepursuant to the Care Everywhere program and may not contain all information available regarding this patient. Last updated 18.[facility] Allergies Active Allergy Reactions Criticality Noted Date [...] () 12/07/2015 Supervision of high risk in [facility] 12/07/2015 Immunizations Immunization Administration Dates Next Due INFLUENZA VACCINE, QUADR. (F LUZONE; FLULAVAL; FLUARIX; AFLURIA QUADRIVALENT; 6MO+), 0.5 ML (IIV4) 07/30/2019,08/16/2018,08/10/2017 Social History Tobacco Use Types Packs/Day Years Used Date Smoking Tobacco: Never Assessed Comments No Sex and Gender Information Value Date Recorded Sex Assigned at Not on file Legal Sex Female 8:55 AM BIT BENDER Gender Identity Not on file Sexual Orientation [...] patient's age to complete this topic Insurance [employer] ANTHEM ANTHEM Care Teams Cigar Making Machine Operator Relationship Specialty Start Date End Date Morteza Caceres MD PCP - General 01/30/21
--- OUTSIDE RECORDS SUMMARY | 2025-05-12 06:50 | XMS_ITS | Patient Health Record ---
Author Organization [facility] Address [address] [place], [place] [address] Care Team Providers Care Cupola Hoist Operator Name Role Phone DAXA BUITRAGO Unavailable [phone] Morteza Caceres Unavailable Unavailable Allergies Allergen (clinical [...] Route Administration Date Status Comme nts Influenza, unspecified formulation Unknown 07/30/2019 A dministered Influenza, quadrivalent, spl it, preservative free, 3 years or older Unknown 08/10/2017 Administered Influenza, quadrivalent, spl it, preservative free, 3 years or older Unknown 08/16/2018 Administered Influenza, quadrivalent, spl it, preservative free, 3 years or older Unknown 07/30/2019 Administered Vital Signs Height-cm 162.56 cm 04/17/2025 Weight-kg 65.77 kg 04/17/2025 Height 64.00 in 04/17/2025 Weight 145 lbs 04/17/2025 BMI 24.89 kg/m2 04/17/2025 Encounters Encounter Location Date Provider Diagnosis [facility] [address] [place], [place] [id number] 11/21/2024 DAXA WHITTENBURG Posterior tibial tendinitis of right lower extremity M76.821 ; Pes planus of right foot M21.41 and Pain in right foot M79.671 [facility] [address] [id number] 04/17/2025 DAXA ISATUTENBURG Ingrowing nail L60.0 ; Cellulitis of right toe L03.031 ; Pain in right toe(s) M79.674 and Posterior tibial tendinitis of right lower extremity M76.821 [facility] [address] [id number] 12/21/2024 DAXA SHARBURG Posterior tibial tendinitis of right lower extremity M76.821 ; Flat foot [pes planus] (acquired), right foot M21.41 and Pain in right foot M79.671 [facility] [address] [id number] 01/24/2025 DAAX ISATUTENBURG Ingrowing nail L60.0 ; Cellulitis of right toe L03.031 and Pain in right toe(s) M79.674 [facility] [address] [id number] 02/08/2025 DAXA WHITTEN[place]G Ingrowing nail L60.0 and Encounter for other specified surgical aftercare Z48.89 [facility] [address] [id number] 04/20/2025 DAAXBERONICA MYLESBURG Assessments Encounter Date Diagnosis (ICD Code) [...] Treatment Next Appt Details Provider Name:DAXA MCKINNEY, 06/16/2025 07:30:00 AM, [address] [place], [place], [id number], Provider Name:ADXA MCKINNEY, 06/22/2025 07:30:00 AM, [address], [address], [phone], Insurance Providers Payer Name Payer Address Payer Phone Subscriber Number Group Number Insured Name Patient Relationship to Insured Coverage Start Date Coverage End Date [facility] ([facility]) ATTN CLAIMS [address] [place] [address] [id number] MARCIN DONATO Spouse - patient is the spouse of the insured
--- OUTSIDE RECORDS SUMMARY | 2025-05-12 06:50 | XMS_ITS | Patient Health Record ---
Author Organization [facility] Address [address] [facility] [place] [address] Care Team Providers Care Production Planner Name Role Phone Morris REAVES, Morteza Primary Care Provider Darby Benavidez Unavailable [phone] Allergies Allergen (clinical drug ingredient) Drug/Non Drug Allergy documented on EMR Reaction Allergy Type Onset Date Status metronidazole metroNIDAZOLE Unknown Drug Allergy Active tioconazole Monistat 1 Unknown Drug Allergy 10/28/2022 Act simon Latex Latex Unknown Allergy 10/24/2022 Active Substance with sulfonamide structure and antibacterial mechanism of action (substance) Sulfa Antibiotics Unknown Drug Allergy 10/24/2022 Active red oak pollen extract [place] Unknown Drug Allergy 06/28 Active Reason For [...] take 1 tablet daily oral *Reorder from [employer] for eRx and Interaction Alerts* Active Ventolin [...] W/U Status Risk Notes Problem Rheumatoid arthritis (80328936) 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 Metabolic Panel ([phone] 023 Insurance Providers Payer Name Payer Address Payer Phone Subscriber Number Group Number Insured Name Patient Relationship to Insured Coverage Start Date Coverage End Date Tracie [place] [address] [place] [address] [id number] Massey Soledad Self - patient is the insured Medical (General) History Medical History History ICD Code Asthma; Fibromyalgia; Sinus tachycardia; Surgical History Surgery Date(Month/Year) Uterine Ablation; 2022-10-24 Hysterectomy; 2022-10-24 tarsal tunnel release; 2022-10-28 section; 2022-10-28 Tendon repair: right, Date of Procedure: 2020; 2022-10-28
--- OUTSIDE RECORDS SUMMARY | 2025-05-12 06:50 | XMS_ITS ---
Author Organization [facility] Address [address] [place], [place] [phone] Care Team Providers Care Mcat Instructor Name Role Phone FELIZ LOZAIC Unavailable [phone] Morris Morteza Unavailable Unavailable REASON FOR VISIT *Orthotic pick-up Encounters Encounter Location Date Provider Diagnosis [facility] [place] [address] [place], [place] [id number] 05/11/2025 DAXA LOZA Plan Of Treatment Next Appt Details Provider Name:DAXA MCKINNEY, 06/16/2025 07:30:00 AM, [address] [place], [place], [phone], Provider Name:DAXA MCKINNEY, 06/22/2025 07:30:00 AM, [address], [address], [place], [place], [phone], Progress Notes * DARRYL DONATODOB:1995 ( 30 yo F)Acc No.[id number]:05/11/2025 Patient: DARRYL HIDALGO Provider: Max Loza DPM :1995 A ge:30 Y S ex:Female Date:05/11/2025 Address:[address] [place] [address] Subjective: * Chief Complaints: * 1 . *Orthotic pick-up. * Medical History: Objective: * Vitals: Assessment: Plan: * Treatment: * Billing Information: * Visit Code: * Procedure Codes: * Electronic signature of DAXA LOZA DPM on 05/12/2025 at 06:50 AM CDT Sign off status: Pending * Provider: Max Loza DPM Date: 05/11/2025 Generated for Hiram jacome/Dave/Tyler on: 05/12/2025 06:50 AM CDT
--- OUTSIDE RECORDS SUMMARY | 2025-05-12 06:50 | XMS_ITS | Continuity of Care Document ---
Author Organization [facility] Address [address] [place] [address] [place] [address] Phone Care Team Providers Care Composing Machine Operator/Tender Name Role Phone Morteza Caceres MD Unavailable [...] on Encounter PREV VISIT, EST, AGE 18-39 [facility], [address] [place] [place], [address], [place] tel:[phone] [facility] physical (chief complaint) Encounter for general adult medical exam w abnormal findingsAttention deficitGeneralized Anxiety DisorderMild intermittent asthma, uncomplicatedFatigu eRheumatoid arthritis [address], [place], [place], [address] , [place]. [phone] [facility], [address] [place], [address], [place] tel:[phone] [facility] No Information 4 Morris Rendon [address], [place], [place], [address] , [place]. tel:[phone] OFFICE/OUTPA TIENT VISIT, EST [facility], [address] [place], [address], [place] tel:[phone] [facility] ADD (chief complaint) fatigue1 (chief complaint) MCV (chief complaint) shoulder pain1 (chief complaint) Pain in left shoulderFatigueAtte ntion deficitOther abnormality of red blood cellsGeneralized Anxiety Disorder Sep-2 4 [address], [place], [place], [address] , [place]. tel:[phone] OFFICE/OUTPA TIENT VISIT, [facility], [place], [facility], [address], [place], [place], [address], [place] [phone] [facility] shoulder pain1 (chief complaint) ADD (chief complaint) RA (chief complaint) shoulder pain1 (chief complaint) Attention deficitRheumatoid arthritisPain in left shoulder 4 [address], [address], [place], [address] , [place]. tel:[phone] OFFICE/OUTPA TIENT VISIT, [facility] [place], [address], [place], [place], [address], [place] tel:[phone] [facility] ADD (chief complaint) anxiety1 (chief complaint) RA (chief complaint) UTI1 (chief complaint) Attention deficitGeneralized Anxiety DisorderRheumatoid arthritisDysuria Mar-0 [address], [place], [address] , [place]. tel:[phone] OFFICE/OUTPA TIENT VISIT, [facility] [place], [address], [place], [place], [address], [place] tel:[phone] [facility] asthma1 (chief complaint) ADD (chief complaint) Attention deficitMild intermittent asthma, uncomplicated 4 Morris Morteza. [address], [place], [place], [address] , [place]. tel:[phone] OFFICE/OUTPA TIENT VISIT, [facility] [place], [address], [place], [place], [address], [place] tel:[phone] [facility] ADD (chief complaint) edema1 (chief complaint) EdemaAttention deficit [address], [place], [place], [address] , [place]. tel:[phone] OFFICE/OUTPA TIENT VISIT, EST [facility], [address], [place], [address], [place] tel:[phone] [facility] ADD (chief complaint) knee pain1 (chief complaint) Attention deficitPain in left knee 4 Caceres Morteza. [address], [place], [address] , [place]. tel:[phone] OFFICE/OUTPA TIENT VISIT, EST [facility], [address], [place], [place], [address], [place] tel:[phone] [facility] cough1 (chief complaint) knee pain1 (chief complaint) Acute bronchitisPain in left knee 4 [address], [place], [address] , [place]. [phone] PREV VISIT, EST, AGE 18-39 [facility], [address], [place], [place], [address], [place] tel:[phone] [facility] Medicine physical (chief complaint) Encounter for general adult medical exam w abnormal findingsAbnormal weight gainGeneralized Anxiety DisorderAttention deficit [address], [place], [address] , [place]. [phone] OFFICE/OUTPA TIENT VISIT, EST [facility], [address], [place], [place], [address], [place] tel:[phone] [facility] Medicine ADD (chief complaint) weight gain1 (chief complaint) Attention deficitAbnormal weight gain 3 [address], [place], [address] , [place]. tel:[phone] OFFICE/OUTPA TIENT VISIT, EST [facility], [address], [place], [address], [place] tel:[phone] [facility] ADD (chief complaint) anxiety1 (chief complaint) asthma1 (chief complaint) knee1 (chief complaint) Attention deficitPain in left kneeGeneralized Anxiety DisorderMild intermittent asthma, uncomplicated 3 [address], [place], [address] , [place]. tel:[phone] OFFICE/OUTPA TIENT VISIT, [facility] [place], [address], [place], [address], [place] tel:[phone] [facility] ADD (chief complaint) knee pain1 (chief complaint) Pain in left kneeAttention deficit 3 [address], [place], [address] , [place]. tel:[phone] OFFICE/OUTPA TIENT VISIT, [facility] [place], [address], [place], [place], [address], [place] tel:[phone] [facility] anxiety1 (chief complaint) Generalized Anxiety Disorder [address], [place], [address] , [place]. tel:[phone] OFFICE/OUTPA TIENT VISIT, [facility] [place], [address], [place], [address], [place] tel:[phone] [facility] ADD (chief complaint) RA (chief complaint) Attention deficitRheumatoid arthritis [address], [place], [address] , [place]. tel:[phone] OFFICE/OUTPA TIENT VISIT, [facility] [place], [address], [place], [address], [place] tel:[phone] [facility] itchy rash1 (chief complaint) ADD (chief complaint) anxiety1 (chief complaint) pain1 (chief complaint) Attention deficitGeneralized Anxiety DisorderIrritant contact dermatitis, unspecified causeChronic pain syndrome [address], [place], [address] , [place]. tel:[phone] OFFICE/OUTPA TIENT VISIT, EST [facility], [address], [place], [address], [place] tel:[phone] [facility] palpitatio n1 (chief complaint) Anxiety1 (chief complaint) arm weakness1 (chief complaint) ADD (chief complaint) Attention deficitGeneralized Anxiety DisorderOther chest painOther spondylosis, cervical region 3 [address], [place], [address] , [place]. tel:[phone] OFFICE/OUTPA TIENT VISIT, EST [facility], [address], [place], [address], [place] tel:[phone] [facility] ADD (chief complaint) anxiety1 (chief complaint) pelvic pain1 (chief complaint) Attention deficitLower abdominal painGeneralized Anxiety Disorder [address], [place], [address] , [place]. tel:[phone] OFFICE/OUTPA TIENT VISIT, EST [facility], [address], [place], [address], [place] tel:[phone] [facility] RA (chief complaint) ADD (chief complaint) pelvic pain1 (chief complaint) RA w/ rheumatoid factorAttention deficitLower abdominal pain Dec-2 [address], [place], [address] , [place]. tel:[phone] OFFICE/OUTPA TIENT VISIT, EST [facility], [address] [place], [address], [place] tel:[phone] [facility] joint pain1 (chief complaint) Pain in jointRA w/ rheumatoid factor Cruz- 3 [address], [place], [address] , [place]. tel:[phone] PREV VISIT, EST, AGE 18-39 [facility], [address], [place], [place], [address], [place] tel:[phone] [facility] Medicine physical (chief complaint) Encounter for general adult medical exam w abnormal findingsTachycardia Generalized Anxiety DisorderPain in jointMild intermittent asthma, uncomplicated [address], [place], [address] , [place]. tel:[phone] OFFICE/OUTPA TIENT VISIT, [facility] [place], [address], [place], [address], [place] [phone] [facility] anxiety1 (chief complaint) weakness1 (chief complaint) allergy1 (chief complaint) Generalized Anxiety DisorderMuscle weaknessOther asthma [address], [place], [address] , [place]. tel:[phone] OFFICE/OUTPA TIENT VISIT, [facility] [place], [address], [place], [address], [place] tel:[phone] [facility] anxiety1 (chief complaint) Primary insomniaPost-trauma tic stress disorder, chronic 2 [address], [place], [address] , [place]. [phone] OFFICE/OUTPA TIENT VISIT, [facility] [place], [address], [place], [place], [address], [place] tel:[phone] [facility] insomnia1 (chief complaint) anxiety1 (chief complaint) tachycardi a1 (chief complaint) Primary insomniaPost-trauma tic stress disorder, chronicTachycardiaA ttention deficitGeneralized Anxiety Disorder [address], [place], [address] , [place]. tel:[phone] OFFICE/OUTPA TIENT VISIT, [facility] [place], [address], [place], [address], [place] tel:[phone] [facility] abd pain1 (chief complaint) Abdominal painPelvic pain 2 [address], [place], [place], [address] , [place]. [phone] PREV VISIT, EST, AGE 18-39 [facility], [address], [place], [place], [address], [place] tel:[phone] [facility] physical (chief complaint) Encounter for general adult medical exam w abnormal findingsLeukocytosi sFlushingStriae atrophicaeNight sweatsFibromyalgiaA sthma 1 [address], [place], [address] , [place]. [phone] OFFICE/OUTPA TIENT VISIT, EST [facility], [address], [place], [address], [place] tel:[phone] [facility] stretch marks1 (chief complaint) hot flush1 (chief complaint) wBC (chief complaint) Striae atrophicaeAbnormal weight gainFlushingLeukocy tosisNight sweats 1 [address], [place], [address] , [place]. tel:[phone] OFFICE/OUTPA TIENT VISIT, EST [facility], [address], [place], [address], [place] tel:[phone] [facility] UTI1 (chief complaint) Urinary tract infection 1 [address], [place], [address] , [place]. tel:[phone] OFFICE/OUTPA TIENT VISIT, EST [facility], [address], [place], [address], [place] tel:[phone] [facility] plantar fascinitis 1 (chief complaint) Plantar fasciitisTarsal tunnel syndrome, right lower limb 1 [address] R[address], [place], [address] , [place]. [phone] OFFICE/OUTPA TIENT VISIT, [facility] [place], [address], [place], [address], [place] tel:[phone] [facility] hand pain1 (chief complaint) Hypermobility syndromePain in right wristMononeuropathy of right arm 1 Morris [address], [place], [address] , [place]. [phone] OFFICE/OUTPA TIENT VISIT, [facility] [place], [address] [place], [address], [place] tel:[phone] [facility] hip pain1 (chief complaint) weight gain1 (chief complaint) fibromyalg ia1 (chief complaint) Pain in right hipAbnormal weight gainHypermobility syndromeFibromyalgi aLeukocytosis 1 Morris [address], [place], [address] , [place]. [phone] OFFICE/OUTPA TIENT VISIT, [facility] [place], [address] [place], [place], [address], [place] tel:[phone] [facility] wrist pain1 (chief complaint) Pain in right wristGanglion, right wrist 1 [address], [place], [address] , [place]. [phone] OFFICE/OUTPA TIENT VISIT, [facility] [place], [address], [place], [address], [place] tel:[phone] [facility] wrist pain1 (chief complaint) fibromyalg ia1 (chief complaint) FibromyalgiaPain in right wristCTS of arm 1 Morris [address], [place], [address] , [place]. [phone] OFFICE/OUTPA TIENT VISIT, [facility] [place], [address] [place], [address], [place] tel:[phone] [facility] WBC (chief complaint) neuorpathy 1 (chief complaint) NeuropathyLeukocyto sis 0 [address], [place], [address] , [place]. tel:[phone] PREV VISIT, EST, AGE 18-39 [facility], [address] [place], [place], [address], [place] [phone] [facility] Physical (chief complaint) Encounter for general adult medical exam w abnormal findingsFibromyalgi aAlopeciaNeuropathy Headache, unspecified 0 [address], [place], [address] , [place]. tel:[phone] OFFICE/OUTPA TIENT VISIT, [facility] [place], [address] [place], [place], [address], [place] tel:[phone] [facility] kidney cyst1 (chief complaint) fibromyalg ia1 (chief complaint) neck pain1 (chief complaint) sleep apnea1 (chief complaint) FibromyalgiaProtein uriaCyst of kidney, acquiredSleep apnea 0-202 0 [address], [place], [address] , [place]. tel:[phone] OFFICE/OUTPA TIENT VISIT, EST [facility], [address] [place] [place], [place], [address], [place] tel:[phone] [facility] sleep apnea1 (chief complaint) proteinuri a1 (chief complaint) kidney cyst1 (chief complaint) libido1 (chief complaint) Sleep apneaCyst of kidney, acquiredFibromyalgi aProteinuriaDecreas ed libido -202 0 [address], [place], [address] , [place]. tel:[phone] OFFICE/OUTPA TIENT VISIT, [facility] [place], [address] [place], [place], [address], [place] tel:[phone] [facility] UTI1 (chief complaint) Urinary tract infection 0 [address], [place], [address] , [place]. tel:[phone] OFFICE/OUTPA TIENT VISIT, [facility] [place], [address], [place], [place], [address], [place] tel:[phone] [facility] asthma1 (chief complaint) ovary1 (chief complaint) sleep apnea1 (chief complaint) Sleep apneaAsthmaAcquired atrophy of right ovary 0 [address], [place], [address] , [place]. tel:[phone] OFFICE/OUTPA TIENT VISIT, [facility] [place], [address], [place], [place], [address], [place] tel:[phone] [facility] renal cyst1 (chief complaint) Acquired atrophy of right ovaryCyst of kidney, acquired 0 [address], [place], [place], [address] , [place]. tel:[phone] Referring Provider: Morteza Caceres [address], [place], [place], [address]. tel:[phone] OFFICE/OUTPA TIENT VISIT, [facility] [place], [address], [place], [place], [address], [place] tel:[phone] [facility] sleep apnea1 (chief complaint) wrist pain1 (chief complaint) knee pain1 (chief complaint) Sleep apneaRadial styloid tenosynovitis [de Quervain]Pain in right knee 0 [address], [place], [address] , [place]. tel:[phone] Referring Provider: Nikia Martínez [address], [place], [place], [address]. tel:[phone] OFFICE/OUTPA TIENT VISIT, [facility] [place], [address], [place], [address], [place] tel:[phone] [facility] foot pain1 (chief complaint) sleep apnea1 (chief complaint) Plantar fascial fibromatosisSleep apnea Madi- 0 [address], [place], [address] , [place]. tel:[phone] Referring Provider: Morteza Caceres, [address], [place], [place], [address]. tel:[phone] OFFICE/OUTPA TIENT VISIT, [facility] [place], [address], [place], [place], [address], [place] tel:[phone] [facility] right hand pain1 (chief complaint) fibromyalg ia1 (chief complaint) pelvic floor1 (chief complaint) Paresthesia of skinNeuropathyRadia l styloid tenosynovitis [de Quervain]Fibromyalg iaSegmental and somatic dysfunction of pelvic region 0 [address], [place], [address] , [place]. [phone] Referring Provider: Nikia Martínez [address], [place], [address]. tel:[phone] OFFICE/OUTPA TIENT VISIT, [facility] [place], [address], [place], [address], [place] tel:[phone] [facility] fatigue1 (chief complaint) facial rash1 (chief complaint) palpitatio n (chief complaint) bowel1 (chief complaint) Sleep apneaRashAcute embolism of other specified veinPalpitationsCha nge in bowel habit Dec- 0 [address], [place], [address] , [place]. [phone] Referring Provider: Nikia Martínez [address], [place], [address]. tel:[phone] OFFICE/OUTPA TIENT VISIT, [facility] [place], [address], [place], [place], [address], [place] tel:[phone] [facility] fatigue1 (chief complaint) palpitatio n1 (chief complaint) fibromyalg ia1 (chief complaint) facial flushing1 (chief complaint) HTN (chief complaint) FlushingFibromyalgi aFatigueTachycardia Essential (primary) hypertension Nov-0 0 [address], [place], [address] , [place]. tel:[phone] Referring Provider: Nikia Martínez [facility] A, [place], [place], [address]. tel:[phone] OFFICE/OUTPA TIENT VISIT, EST [facility], [address], [place], [address], [place] tel:[phone] [facility] HIVE1 (chief complaint) renal1 (chief complaint) tachycardi a1 (chief complaint) fibromyalg ia1 (chief complaint) fatigue1 (chief complaint) FibromyalgiaTachyca rdiaRashRenal diseaseLeukocytosis Fatigue Fe-0 0 [address], [place], [address] , [place]. tel:[phone] Referring Provider: Nikia Martínez [address], [place], [place], [address]. tel:[phone] PREV VISIT, EST, AGE 18-39 [facility], [address], [place], [place], [address], [place] tel:[phone] [facility] physical (chief complaint) Encounter for general adult medical exam w abnormal findingsAsthmaFibro myalgiaRenal diseaseTachycardiaF emale pelvic infection 201 9 Morris [address], [place], [place], [address] , [place]. tel:[phone] Referring Provider: Nikia Martínez [address], [place], [place], [address]. tel:[phone] OFFICE/OUTPA TIENT VISIT, EST [facility], [address], [place], [place], [address], [place] tel:[phone] [facility] asthma1 (chief complaint) back pain1 (chief complaint) FibromyalgiaAsthma 9 [address], [place], [place], [address] , [place]. tel:[phone] Referring Provider: Nikia Martínez [address], [place], [address]. tel:[phone] OFFICE/OUTPA TIENT VISIT, [facility] [place], [address], [place], [place], [address], [place] tel:[phone] [facility] lumbago1 (chief complaint) fibromyalg ia1 (chief complaint) asthma1 (chief complaint) pelvic floor1 (chief complaint) FibromyalgiaLumbago Urinary urgencyAsthma 9 [address], [place], [address] , [place]. tel:[phone] Referring Provider: Nikia Martínez [address], [place], [address]. tel:[phone] OFFICE/OUTPA TIENT VISIT, [facility] [place], [address], [place], [place], [address], [place] tel:[phone] [facility] back pain1 (chief complaint) polycythem ia1 (chief complaint) cystitis1 (chief complaint) Interstitial cystitis (chronic) without hematuriaFibromyalg iaSecondary polycythemiaLumbago 9 [address], [place], [address] , [place]. tel:[phone] Referring Provider: Nikia Martínez [address], [place], [place], [address]. tel:[phone] OFFICE/OUTPA TIENT VISIT, [facility] [place], [address], [place], [address], [place] tel:[phone] [facility] UTI1 (chief complaint) fibromyalg ia1 (chief complaint) Urinary tract infectionFibromyalg ia 9 [address], [place], [address] , [place]. tel:[phone] Referring Provider: Nikia Martínez [address], [place], [address]. tel:[phone] PREV VISIT, EST, AGE 18-39 [facility], [address], [place], [address], [place] tel:[phone] [facility] PHysical (chief complaint) Encntr for general adult medical exam w/o abnormal findings 9 Morris Rendon [address], [place], [address] , [place]. tel:[phone] Referring Provider: Nikia Martínez [address], [place], [place], [address]. tel:[phone] OFFICE/OUTPA TIENT VISIT, EST [facility], [address], [place], [address], [place] tel:[phone] [facility] fibromyalg ia1 (chief complaint) back pain1 (chief complaint) sore throat1 (chief complaint) sleep1 (chief complaint) Lumbago with sciatica, left sideFibromyalgiaPha ryngitisSleep disorder 9 [address], [place], [address] , [place]. [phone] Referring Provider: Nikia Martínez [address], [place], [address]. tel:[phone] OFFICE/OUTPA TIENT VISIT, EST [facility], [address], [place], [address], [place] tel:[phone] [facility] back pain1 (chief complaint) fibromyalg ia1 (chief complaint) Lumbago with sciatica, left sideFibromyalgia 9 [address], [place], [place], [address] , [place]. tel:[phone] Referring Provider: Nikia Martínez [address], [place], [address]. tel:[phone] OFFICE/OUTPA TIENT VISIT, [facility] [place], [address], [place], [address], [place] tel:[phone] [facility] fatigue1 (chief complaint) pain1 (chief complaint) depression 1 (chief complaint) FibromyalgiaTension headacheDepressionP ain in unspecified joint 2 [address], [place], [address] , [place]. tel:[phone] Referring Provider: Nikia Martínez [address], [place], [place], [address]. tel:[phone] OFFICE/OUTPA TIENT VISIT, [facility] [place], [address], [place], [place], [address], [place] tel:[phone] [facility] knee pain1 (chief complaint) asthma1 (chief complaint) palpitatio n1 (chief complaint) Pain in unspecified jointAsthmaPalpitat ions 9 [address], [place], [address] , [place]. tel:[phone] Referring Provider: Nikia Martínez [address], [place], [address]. tel:[phone] OFFICE/OUTPA TIENT VISIT, [facility] [place], [address], [place], [address], [place] tel:[phone] [facility] polycythem ia1 (chief complaint) sleep (chief complaint) UTi1 (chief complaint) weight gain1 (chief complaint) Secondary polycythemiaHerpes simplex infectionUrinary tract infectionAbnormal weight gain [address], [place], [place], [address] , [place]. tel:[phone] Referring Provider: Nikia Mart[address], [place], [place], [id number]. tel:[phone] OFFICE/OUTPA TIENT VISIT, [facility], [place], operated [facility], [address], [place], [place], [address], [place] tel:[phone] [facility] polycyther mia1 (chief complaint) vitami D (chief complaint) cardiomyop athy1 (chief complaint) back pain1 (chief complaint) InsomniaSecondary polycythemiaLumbago Vitamin D deficiency, unspecified [address], [place], [place], [address] , [place]. tel:[phone] Referring Provider: Nikia Martínez [address] [facility] [address], [place], [place], [address]. tel:[phone] PREV VISIT, NEW, AGE 18-39 [facility], [address], [place], [place], [address], [place] tel:[phone] [facility] PHysical (chief complaint) Encntr for general adult medical exam w/o abnormal findings [address], [facility] [address], [place], [place], [address] , [place]. tel:[phone] Referring Provider: Nikia Martínez [address] [facility] [address], [place], [place], [address]. tel:[phone] Family History Family Member Type Diagnosis Age At Onset Mother Problem (finding) RA Mother Problem (finding) Cardiomyopathy Father Problem (finding) Coronary artery disease (Cause Of ) 55 Payers Payer name Insurance type Covered libertarian ID Authoriza tion(s) No Information Social History [...] Referred To: Darby Bangura MD [address]
[address] [place], [place], [id number] Ordered: Referrals: Darby Bangura MD. Evaluate and treat ordered Referral Ordered: US SOFT TISSUE CHEST ordered Referral Referred To: Jose F Gerardo MD [address] [facility]
[address] [place], [place], [id number] Ordered: Referrals: Jose F Gerardo MD. Evaluate [...] -Podiatric Medicine & Surgery Service Providers : Market Research Manager (related to Plantar fascial fibromatosis) ordered Referral Referred To: LORRAINE VALLEJO [address] [place] [address],[address] [place], [place], [phone] Ordered: Referrals: Podiatric Medicine & Surgery Service Providers : Market Research Manager. LORRAINE VALLEJO. Evaluate and treat ordered Referral Ordered: SENSE NERVE CONDUCTION TEST ordered Referral Ordered: Raciel Weber -[facility]opathic [facility] Osteopathic Physicians : Internal Medicine : Rheumatology (related to Rash) ordered Referral Referred To: Raciel Weber [address] [facility]
[address] [place], [address] Ordered: Referrals: Allopathic & Osteopathic Physicians : Internal Medicine : Rheumatology. Raciel Weber. Evaluate and treat ordered Referral Ordered: Pain Medicine (related to Lumbago) ordered Referral Ordered: Referrals: Pain Medicine. Evaluate and treat ordered Referral Ordered: Physical Therapy (related to Lumbago) ordered Referral Ordered: MANDIBLE X-RAY 4+ VIEWS ordered Referral Ordered: Hematology (related to Secondary polycythemia) ordered Referral Ordered: Physical Therapy (related to Lumbago) ordered Referral Ordered: LUMBAR XRAY AP AND [...] a while. Pt has been out of [facility] for a while and she wants to see a different five piece expansion maker hand for 2nd opinion Pt does have joint [...] a while. Pt has been out of [facility] for a while and she wants to see a different five piece expansion maker hand for 2nd opinion Pt does have joint [...] appetite loss. knee pain1 Pt fell off [employer] and landed on left knee 24 hours [...] 3 months ago and she went to [facility] ER and had CT done which showed [...] flank pain Pt did have woodrow with LAW SECRETARY but was canceled. Pt denies any trigger [...] wrist is hyper mobile. Pt did see five piece expansion maker hand and also die maker stamping about mirta danlos syndrome which were negative [...] during shower. sleep apnea1 Pt has sleep control clerk auditing ea Pt had in lab titration study [...] albumin yet sleep apnea1 Pt has sleep control clerk auditing ea. Pt is seeing ENt/sleep and she [...] actually involved in a lawsuit with her tractor sweeper driver who did the hysterectomy sleep apnea1 Pt has sleep control clerk auditing ea .pt states that she is not [...] diarrhea Pt denies any blood in stool HTN Pt has borderlin e HTn Pt denies any chest pain or headache . facial flushing1 Pt states that sometimes she feels hot flushes especially around her face for last several months Pt had partial hysterectomy .Pt still has ovary intact Pt denies any night sweat .pt denies any chills. Pt denies any facial rash, Pt state that flushing feeling comes and goes .Pt does not know any trigger factor . fatigue1 Pt has chronic f atigue, Pt hernández snore Pt has not done sleep study yet palpitation1 Pt has occasiona l palpitation Pt had cardiac echo and holter recently. Holter showed some SVT and ventricular ectopy Pt denies any chest pain or acute symptoms Pt has woodrow with cardiology in two days . fibromyalgia Pt has fibromyal fabricio. Pt states that she has not had any pain so she did not start lyrica. Pt is seeing pain management and is getting SI joint injections Pt currently doing ok HIVE1 Pt has intermitt ent mild rash [...] any syncope. Pt denies any headache . fibromyalgia Pt has fibromyal fabricio. Pt unable to [...] days ago Pt was actually transferred to [facility] recently and she was on vancomycin and she apparently had acute renal injury and she was weaned off vancomycin and her renal function recovered Pt also had renal function last week and was told improving. 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 Pt states that she hernádnez snot know how to describe her symptoms. [...] notices above when she does physical work polycythermia1 Pt has polycythe leann. Pt hernández [...] stopping. caffeine/ pt denies any chest pain. PHysical Pt needs annual physical. Pt states [...] general adult medical exam w/o abnormal findings Weight management Related to Lum bago with sciatica, left side Increase physical activity Relat ed to Lumbago with sciatica, left side Increase physical activity [...] Mental Status Date Cognitive Assessment Orientation - [place] ed to time, place, person, situation.
--- OUTSIDE RECORDS SUMMARY | 2025-05-12 06:51 | XMS_ITS | Continuity of Care Document ---
Author Organization [facility] Address [address] [place] [address] [address] [place] [address] Phone Care Team Providers Care Child Nutrition Assistant Name Role Phone Yevgeniy CRUZ/Ellen Keith CHT Unavailable Erica vailable Procedures Procedure Date Orthotic Mgmt and Training Wrist & Thumb Forearm based opponens Mar Advance Directives Directive Yes / No Effective Date File Name No Information Encounters Encounter Description Practice Location Reason(s) For Visit Diagnoses Date Provider Providers Copied on Encounter [facility], [address] [place], [place] [address], [place], [place], [id number], tel:[phone] [place] No Information 0 Yevgeniy Hughes. [address] [facility], [address], [place], [address], . tel:[phone] Referring Provider: Morteza Caceres, [address] [facility] [address], [place], [address]. tel:[phone] Family History Family Member Type Diagnosis Age At Onset No Information Payers Payer name Insurance type Covered democrat ID Authoriza tion(s) [facility] [id number] Social History Type Description Quantity Date Captured [...]
--- OUTSIDE RECORDS SUMMARY | 2025-05-12 06:51 | XMS_ITS | Clinical Summary ---
Author Organization [facility] Address [address] [place] [address] Care Team Providers Care Class A Lineman Name Role Phone Unavailable Primary Care Provider [...] Description 06/16/2025 7:30 AM CDT Hospital Encounter [facility] [place] [address] Prudencio Loza, CEDRICKM [address] [place] [phone] 06/16/2025 7:30 AM CDT - 06/16/2025 8:45 AM CDT Surgery [facility] [place] [address] Prudencio Loza DPM [address] [place] [address] WINOGRAD PROCEDURE LEFT BIG TOE [...]
[2025-05-12] MEDS: KETOROLAC 15 MG/ML VIAL (*BKC) IV PUSH (08:00)
[2025-05-12] MEDS: ACETAMINOPHEN 500 MG TABLET 1000 MG PO (08:00)
[2025-05-12] MEDS: LACTATED RINGERS 1,000 ML 30 ML IV CONT ×2 (08:00→12:29)
--- NOTE | 2025-05-12 11:38 | S_PTH ---
PATIENT: Soledad Massey LOC: [facility] U#:[id number] AGE/SX: 30/F ROOM: RE05/12/[address]: Jace Higginbotham MD : 1995 BED: DIS: 05/12/2025 SPEC #: [id number] RECD: 05/12/25 13:07 STATUS: CHAYITO REGiuliano #: [id number] CONOR: 05/12/25 11:[address]: Jace Cannon DEPT: [facility] [place] Surgical RECD BY: Nafisa Herrera ENTERED: 05/12/25 13:08 SP TYPE: Surgical OTHR DR: UNKNOWN,DOCTOR Tissues: A - Ovary Procedures: Hematoxylin and Eosin Stain Gross and Microscopic Level 4
--- NOTE | 2025-05-12 11:44 | W.PM.PROC2 ---
Procedure Note - Detailed Date of Procedure 05/12/25 Pre-op Diagnosis left ovarian cyst, pelvic pain Post-op Diagnosis Same Procedure Performed Laparoscopic left salpingo-oophorectomy and lysis of adhesions Surgeon Jaec Higgnibotham MD Anesthesia General Indications 30-year-old female status post hysterectomy with pelvic pain and left ovarian cyst Findings Uterus was absent. Multiple adhesions were seen from the omentum and bowel to the vaginal cuff and a moderate-sized left ovarian cyst. Description of Procedure Patient is prepped draped sterile fashion placed in dorsal lithotomy position. Excellent general trach anesthesia weighted speculum placed in posterior fornix vagina sponge stick placed in bladder emptied clear weighted speculum was gloves were changed. A left upper quadrant incision made in estevez's point and a 5mm trocar advanced in the abdomen under direct visualization after filling the abdomen with CO2 gas patient placed in Trendelenburg and a suprapubic incision made the 5mm trocar advanced under direct visualization assuring no injury a left lower quadrant incision made the 10mm trocar advanced under direct visualization assuring no injury multiple adhesions were seen using the tug at method to tighten and improve the dissection this was sharply dissected sec did away the adhesions until finding the ovary can be seen the colon was markedly adherent to the left lateral sidewall and sharp dissection with intermittent cautery was allowed this to be free. The infundibulopelvic structure on the left was skeletonized clamped, burned, cut the ovary and tube were placed in the Endo-Catch and removed through the left lower quadrant. Irrigation undertaken until clear the appendix and gallbladder and liver edge all appeared within normal limits hemostasis was assured the instruments withdrawn the patient was awakened went in satisfactory condition after removing the gas the trocars and closed the incisions with 4-0 Monocryl there were no immediate complications Estimated Blood Loss 5 Drains No Packing No Pathology Yes Complications No immediate complications Condition Stable Disposition PACU
[2025-05-12] MEDS: fentaNYL CITRATE INJ (*CRX) 100 MCG/2 ML VIAL 25 MCG IV PUSH ×4 (12:03→12:24)
[2025-05-12] MEDS: oxyCODONE HCL (*CRX) 5 MG TAB IR PO (13:21)
== END 2025-05-12 13:58 | disposition home or self-care (01) ==
PROVIDERS: Visit Provider Obstetrics & Gynecology
PROC: (CPT 49320; principal; 2025-05-12 09:30)
DX: N83.292 Other ovarian cyst, left side (principal); N83.12 Corpus luteum cyst of left ovary; N83.02 Follicular cyst of left ovary; N83.8 Other noninflammatory disorders of ovary, fallopian tube and broad ligament; N70.11 Chronic salpingitis; N73.6 Female pelvic peritoneal adhesions (postinfective); K58.9 Irritable bowel syndrome, unspecified; R00.0 Tachycardia, unspecified; M79.7 Fibromyalgia; J45.909 Unspecified asthma, uncomplicated; F41.8 Other specified anxiety disorders; F43.10 Post-traumatic stress disorder, unspecified; M41.9 Scoliosis, unspecified; M19.90 Unspecified osteoarthritis, unspecified site; N73.9 Female pelvic inflammatory disease, unspecified; F12.90 Cannabis use, unspecified, uncomplicated; Z79.891 Long term (current) use of opiate analgesic; Z98.890 Other specified postprocedural states; Z98.1 Arthrodesis status; Z98.891 History of uterine scar from previous surgery; Z86.718 Personal history of other venous thrombosis and embolism; Z80.9 Family history of malignant neoplasm, unspecified; Z82.49 Family history of ischemic heart disease and other diseases of the circulatory system
CPT/HCPCS: 58661; 88305; A9270; J1100; J1200; J1885; J2003; J2250; J2405; J2704; J3010; J7120